=== PATIENT | female | born 1960 | race Caucasian/White ===

== ENCOUNTER → 2018-02-13 16:54 | Outpatient (CLI) | payer OTHER, SELFPAY ==
--- NOTE | 2018-02-13 16:56 | CT_ITS ---
STUDY: CT ABDOMEN AND PELVIS WITH CONTRAST REASON FOR EXAM: Female, 58 years old. Right lower quadrant pain for one week. RADIATION DOSAGE (If Supplied By Facility): CTDIvol = ( 13.16 ) mGy, DLP = ( 658.42 ) mGycm TECHNIQUE: Transaxial images were obtained from the dome of the diaphragm to the symphysis pubis with oral contrast. 100ML ml of Isovue 300 contrast was administered. Sagittal and coronal images were reconstructed. Individualized dose optimization techniques were used for this CT. COMPARISON: None. FINDINGS: The visualized lung bases are unremarkable. The visualized portions of the heart are within normal limits. Scattered hepatic cysts, all likely simple cysts, the largest in the right lobe measuring 3.0 x 2.9 cm. The gallbladder is contracted. Normal spleen. Normal pancreas. Normal bilateral adrenal glands. Normal right kidney. Normal left kidney. Normal visualized stomach. Normal small intestine including the terminal ileum. Normal colon. The appendix is well visualized coronal images 40 through 43 as well as sagittal images 35 and 36 and appears normal. Normal abdominal aorta. Normal inferior vena cava. Normal retroperitoneum. Terminal ileum is normal. Normal urinary bladder. Uterus is not visualized compatible with hysterectomy. No adnexal mass is seen. Normal abdominal wall. Mild degenerative changes of the lower lumbar spine. CT/Abdomen/Pelvis WITH Contrast IMPRESSION: No acute findings in the abdomen or pelvis. No findings to account for patient's symptoms. Normal appendix. Hepatic cysts. Electronically Signed: Andrew Patterson MD at 2:47 EDT , Service support ,
== END ==
PROVIDERS: Family Provider Family Medicine; PCP Family Medicine; Visit Provider Family Medicine
DX: R10.31 Right lower quadrant pain (principal)
CPT/HCPCS: 74177; Q9967

== ENCOUNTER → 2018-04-18 16:11 | Outpatient (CLI) | payer OTHER, SELFPAY | PROVIDERS: Family Provider Family Medicine; PCP Family Medicine; Visit Provider Nurse Practitioner Women's Health | DX: Z12.31 Encounter for screening mammogram for malignant neoplasm of breast (principal) | CPT/HCPCS: 77063; 77067 ==

== ENCOUNTER 2018-05-03 06:58 | Day surgery (SDC) | payer OTHER, SELFPAY ==
[2018-05-03] VITALS (7 sets, daily range): BP systolic 100–120; BP diastolic 59–75; PULSE 69–73; RESP 14–16; TEMP 36.4–36.6; O2SAT 97–100; BMI 23.8
--- NOTE | 2018-05-03 08:31 | OP.ENDO_ITS ---
Patient Name: Madelyn Hayes Procedure Date: 05/03/2018 7:58 AM Date of : 1960 Age: 58 Procedure: Colonoscopy Indications: Screening in patient at increased risk: Family history of 1st-degree relative with colorectal cancer Patient Profile: Last Colonoscopy: 5 years ago. Providers: Juan Robb MD Referring MD: Muna Putnam Medicines: See the Anesthesia note for documentation of the administered medications Complications: No immediate complications. Procedure: Pre-Anesthesia Assessment: - Prior to the procedure, a History and Physical was performed, and patient medications and allergies were reviewed. The patient's tolerance of previous anesthesia was also reviewed. The risks and benefits of the procedure and the sedation options and risks were discussed with the patient. All questions were answered, and informed consent was obtained. Prior Anticoagulants: The patient has taken no previous anticoagulant or antiplatelet agents. ASA Grade Assessment: II - A patient with mild systemic disease. After reviewing the risks and benefits, the patient was deemed in satisfactory condition to undergo the procedure. After I obtained informed consent, the scope was passed under direct vision. Throughout the procedure, the patient's blood pressure, pulse, and oxygen saturations were monitored continuously. The colonoscope was introduced through the anus and advanced to the terminal ileum. The colonoscopy was performed without difficulty. The patient tolerated the procedure well. The quality of the bowel preparation was good. Scope In: 8:09:15 AM Scope Withdrawal Time 0 hours 6 minutes 5 seconds Scope Out: 8:25:28 AM Total Procedure Duration Time 0 hours 16 minutes 13 seconds Findings: The perianal and digital rectal examinations were normal. The exam was otherwise without abnormality on direct and retroflexion views. Impression: - The examination was otherwise normal on direct and retroflexion views. - No specimens collected. Recommendation: - Discharge patient to home. - Resume previous diet. - Continue present medications. - Return to primary care physician PRN. - Repeat colonoscopy in 5 years for surveillance. Procedure Code(s): --- Professional --- 94451, Colonoscopy, flexible; diagnostic, including collection of specimen(s) by brushing or washing, when performed (separate procedure) Diagnosis Code(s): --- Professional --- Z80.0, Family history of malignant neoplasm of digestive organs CPT copyright 2017 [employer]. All rights reserved. The codes documented in this report are preliminary and upon bag worker review may be revised to meet current compliance requirements. MD Juan Liz MD 05/03/2018 8:31:26 AM This report has been signed electronically. Number of Addenda: 0 Note Initiated On: 05/03/2018 7:58 AM
--- NOTE | 2018-05-03 08:32 | PCM.HP.STD ---
Problem List (1) Family history of colon cancer Status: Acute History of Present Illness Date of Admission: 05/03/18 The patient is a 58 year old F who presents for a colonoscopy secondary to a family history of colon cancer.: Endoscopy was more than 5 years ago. Past Medical History Allergies ampicillin Allergy (Mild, Verified 05/03/18 07:21) Other Home Medications: Ambulatory Orders Medication Instructions Recorded estradiol 0.0375 mg/24 hr 1 patch TRANSDERMAL QWEEK #12 ea 04/03/18 semiweekly transdermal patch Surgical History: Surgical History (Last Reviewed 05/03/18 @ 08:32 by Juan Robb MD) H/O hernia repair Z98.890, Z87.19 History of LAVH Z90.710 Smoking Status: Never smoker Tobacco Use: Non-smoker - *Family History Paternal Family History: Family History (Last Updated 04/03/18 @ 08:16 by Chloé Ocampo) Father Colon cancer Heart disease Review of Systems Cardiovascular: Denies: Chest Pain, Chest Pressure, Chest Tightness, Palpitations Respiratory: Denies: Cough, Hemoptysis, Shortness of breath at rest, Shortness of breath upon exertion, Wheezing VTE Information - Inpt Only VTE Present on Admission: No VTE Mechan Device Prophylaxis: None VTE Pharm Prophylaxis ordered?: No Reason prophylaxis not ordered:: Treatment Not Indicated Patient Problems: Active and Suspected Problems (Last Reviewed 04/03/18 @ 08:16 by Chloé Ocampo) Family history of colon cancer (Acute) - Physical Exam Lungs: Clear to auscultation Cardiovascular: Regular rate, Regular Rhythm, No murmurs Abdomen: Bowel Sounds Present, Soft, Non Tender, Non-Distended Vital Signs Temp Pulse Resp BP Pulse Ox 97.6 F L 69 14 102/75 99 05/03/18 07:23 05/03/18 07:23 05/03/18 07:23 05/03/18 07:23 05/03/18 07:23 Oxygen Delivery Method Room Air Weight: 147 lb 14.883 oz Body Mass Index (BMI) 23.8 Assessment/Plan All Active Problems (Last Reviewed 04/03/18 @ 08:16 by Chloé Ocampo) Family history of colon cancer (Acute) My plan is to perform a colonoscopy.
--- NOTE | 2018-05-03 13:36 | OP.ENDO_ITS ---
Patient Name: Madelyn Hayes Procedure Date: 05/03/2018 7:58 AM Date of : 1960 Age: 58 Procedure: Colonoscopy Indications: Screening in patient at increased risk: Family history of 1st-degree relative with colorectal cancer Patient Profile: Last Colonoscopy: 5 years ago. Providers: Juan Robb MD Referring MD: Muna Putnam Medicines: See the Anesthesia note for documentation of the administered medications Complications: No immediate complications. Procedure: Pre-Anesthesia Assessment: - Prior to the procedure, a History and Physical was performed, and patient medications and allergies were reviewed. The patient's tolerance of previous anesthesia was also reviewed. The risks and benefits of the procedure and the sedation options and risks were discussed with the patient. All questions were answered, and informed consent was obtained. Prior Anticoagulants: The patient has taken no previous anticoagulant or antiplatelet agents. ASA Grade Assessment: II - A patient with mild systemic disease. After reviewing the risks and benefits, the patient was deemed in satisfactory condition to undergo the procedure. After I obtained informed consent, the scope was passed under direct vision. Throughout the procedure, the patient's blood pressure, pulse, and oxygen saturations were monitored continuously. The colonoscope was introduced through the anus and advanced to the terminal ileum. The colonoscopy was performed without difficulty. The patient tolerated the procedure well. The quality of the bowel preparation was good. Scope In: 8:09:15 AM Scope Withdrawal Time 0 hours 6 minutes 5 seconds Scope Out: 8:25:28 AM Total Procedure Duration Time 0 hours 16 minutes 13 seconds Findings: The perianal and digital rectal examinations were normal. The exam was otherwise without abnormality on direct and retroflexion views. Impression: - The examination was otherwise normal on direct and retroflexion views. - No specimens collected. Recommendation: - Discharge patient to home. - Resume previous diet. - Continue present medications. - Return to primary care physician PRN. - Repeat colonoscopy in 5 years for surveillance. Procedure Code(s): --- Professional --- 65085, Colonoscopy, flexible; diagnostic, including collection of specimen(s) by brushing or washing, when performed (separate procedure) Diagnosis Code(s): --- Professional --- Z80.0, Family history of malignant neoplasm of digestive organs CPT copyright 2017 [employer]. All rights reserved. The codes documented in this report are preliminary and upon circuit court judge review may be revised to meet current compliance requirements. MD Juan Liz MD 05/03/2018 8:31:26 AM This report has been signed electronically. Number of Addenda: 0 Note Initiated On: 05/03/2018 7:58 AM
== END 2018-05-03 09:18 | disposition home or self-care (01) ==
LOC: EN 06:59 → AC 07:00
PROVIDERS: Family Provider Family Medicine; PCP Family Medicine; Visit Provider Surgery
PROC: 0DJD8ZZ Inspection of Lower Intestinal Tract, Via Natural or Artificial Opening Endoscopic (ICD-10-PCS; CPT 45378; principal; 2018-05-03 07:55)
DX: Z12.11 Encounter for screening for malignant neoplasm of colon (principal); Z78.0 Asymptomatic menopausal state; Z86.2 Personal history of diseases of the blood and blood-forming organs and certain disorders involving the immune mechanism; Z80.0 Family history of malignant neoplasm of digestive organs
CPT/HCPCS: 45378; J7120; J1610

== ENCOUNTER → 2019-05-23 07:35 | Outpatient (CLI) | payer BC, SELFPAY ==
[2018-05-03 07:23] VITALS: BMI 23.8
--- NOTE | 2019-05-23 07:38 | BI_ITS ---
MAMMOGRAPHY - BILATERAL SCREENING 3-D TOMOSYNTHESIS REASON FOR EXAM: Female, 59 years old. PERTINENT HISTORY: No significant family history. TECHNIQUE: 2-D mammograms and 3-D Tomosynthesis of the breast (s) were performed. CAD was performed. COMPARISON: Previous examination obtained on 04/18/2018 FINDINGS: The breast composition is scattered Scattered benign calcifications are seen. No dense spiculated masses or suspicious microcalcifications are identified. No architectural distortion is identified. There is no skin thickening or retraction. There has been no significant change since the prior study. BI/SCREEN MAMM (CAD) W/NUBIA BILAT IMPRESSION: No mammographic signs of malignancy. Routine yearly mammograms recommended. ASSESSMENT CATEGORY: BIRADS Category 1: Negative. A letter regarding these results will be sent to the patient by the facility within 30 days. FOLLOW UP RECOMMENDATION: Yearly follow up mammogram recommended. (A) Approximately 10% of breast cancers are not detected by mammography. A normal mammogram should not delay biopsy of a clinically suspicious abnormality. Electronically Signed: Dominick Kim, at 9:19 EDT Tel , Service support ,
== END ==
PROVIDERS: Family Provider Family Medicine; PCP Family Medicine; Referring Provider Nurse Practitioner Women's Health; Visit Provider Nurse Practitioner Women's Health
DX: Z12.31 Encounter for screening mammogram for malignant neoplasm of breast (principal)
CPT/HCPCS: 77063; 77067

== ENCOUNTER → 2020-05-29 08:20 | Outpatient (CLI) | payer BC, SELFPAY ==
[2019-09-16 12:34] VITALS: BMI 23.8
--- NOTE | 2020-05-29 08:21 | BI_ITS ---
MAMMOGRAPHY - BILATERAL SCREENING REASON FOR EXAM: Female, 60 years old. Routine annual screening examination. PERTINENT HISTORY: Grandmother with breast cancer. Remote left excisional breast biopsy. TECHNIQUE: Digital bilateral breast nubia (3D mammographic acquisition) in the CC and MLO projections. 2-D mediolateral oblique (MLO) and craniocaudad (CC) views of both breasts were obtained. CAD: Full Field Digital Mammography with Computer Added Detection was performed. COMPARISON: Comparison is made with prior study dated 05/23/2019 and 04/18/2018. FINDINGS: Breast Composition: The breasts are heterogeneously dense, which may obscure small masses. There are no dominant masses or suspicious calcifications. No other significant abnormalities are identified. There has been no significant change since the prior study. BI/SCREEN MAMM (CAD) W/NUBIA BILAT IMPRESSION: Stable bilateral screening mammogram. Yearly follow-up mammogram recommended. (A) ASSESSMENT CATEGORY: BIRADS Category 1: Negative. A letter regarding these results will be sent to the patient by the facility within 30 days. Approximately 10% of breast cancers are not detected by mammography. A normal mammogram should not delay biopsy of a clinically suspicious abnormality. [id number] Electronically Signed: Anson Cisneros, at 9:48 EDT , Service support ,
== END ==
PROVIDERS: PCP Family Medicine; Referring Provider Nurse Practitioner Women's Health; Visit Provider Nurse Practitioner Women's Health
DX: Z12.31 Encounter for screening mammogram for malignant neoplasm of breast (principal); Z80.3 Family history of malignant neoplasm of breast
CPT/HCPCS: 77063; 77067

== ENCOUNTER → 2020-12-17 11:43 | Outpatient (CLI) | payer BC, SELFPAY ==
[2020-05-29 08:53] VITALS: BMI 22.7
--- NOTE | 2020-12-17 11:46 | RAD_ITS ---
STUDY: X-RAY - LUMBAR SPINE REASON FOR EXAM: Female, 60 years old. Back pain. TECHNIQUE: 5 view(s) of the lumbar spine were obtained. COMPARISON: None FINDINGS: Normal lumbar lordosis. There is no substantial scoliosis. There is a normal alignment of the vertebrae. Normal vertebral bodies and endplates. Diffuse facet sclerosis. Intervertebral disc space narrowing at L2-3, L3-4 and L4-5 with osteophyte formation most marked at L4-5. 3 mm in diameter ovoid calcification projected between the right spinous processes of the L2 and L3 vertebral bodies which may reside in the bowel wall. RAD/L/S Spine Min 4 Views IMPRESSION: Mild lower lumbar spondylosis as described. 3 mm in diameter ovoid calcification as described. Electronically Signed: Cj Benjamin MD at 12:25 EDT , Service support ,
--- NOTE | 2020-12-17 11:47 | RAD_ITS ---
STUDY: X-RAY - SACROILIAC JOINTS REASON FOR EXAM: Female, 60 years old. Low back pain. TECHNIQUE: 3 view(s) of the sacroiliac joints were obtained. COMPARISON: None. FINDINGS: Mild arthrosis of both sacroiliac joints. Normal visualized sacral ala and sacrum. Normal visualized iliac bones. 3 mm in diameter calcification projected over the right kidney which may represent nephrocalcinosis. RAD/S-I Jts 3 or More Views IMPRESSION: Mild symmetrical arthrosis of both sacroiliac joints. 3 mm in diameter projected over the right kidney which may represent right nephrocalcinosis. Electronically Signed: Cj Benjamin MD at 12:27 EDT , Service support ,
== END ==
PROVIDERS: PCP Family Medicine; Referring Provider Family Medicine; Visit Provider Family Medicine
DX: M54.5 Low back pain (principal)
CPT/HCPCS: 72110; 72202

== ENCOUNTER 2021-02-05 10:30 | Outpatient (RCR) | payer BC, SELFPAY ==
[2020-05-29 08:53] VITALS: BMI 22.7
--- NOTE | 2021-01-08 12:49 | HP.PTEVAL ---
Patient's Visit Information ROSINA SANTORO is a 61 year old F referred to Physical Therapy by Dr. Muna Putnam MD with a diagnosis of LBP, OA. Date of Evaluation: 01/08/21 Physical Therapist: Ajay Sharpe DPT, OCS, CSCS - Visit Plan Frequency: 2x /Week Duration: 4-6 Weeks Plan: 2x/week x 4 weeks for. 1. stretch quad, hip flexor and HS. 2. NS strength program to progress to HEP. 3. STM R LB if needed with MH. - Subjective R LB hurts especially lying on back and it has hurt for long time. Gets muscle spasms more recently and more pain. Pain to 8/10, 0 today. R LB into L LB. No leg symptoms, no numbness or tingling or weakness. Worse with a lot of standing. Was not lifting but stood alot. Sleeping is hard as she cannot get comfortable. Tries L side but none comfy, getting 2 hours at a time. 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 Wallking is not a big issue on even surfaces. She is effectively retired. Hobbies: reading and grandchildren wnasd walking adn bei9ng more cautious. Grandchildren are 7, 5 , 3. Doing basics at home without too many limitations. - Pain R LBP Pain Intensity (Out of 10): 0 Pain Intensity Range: 0, 8 - Objective wALKS NORMAL, trasnfers normal adn I. Steps reciprocal without rail. LB AROM ext painful R min limtied, flexion full and stretchy. R SB painful and min limited, L SB fulla dn painfree. reflexes 2/3 patella adn achilles. Sensation LE WNL to gross light touch. strength LE 4/5 except hip ext adn abd B 4-, R pain with extension hips. marching in place increases pain. 3/5 trunk strength with poor pelvic movement in WB. - Goals Goal 1:: sleep without waking 6 hours Goal Time Frame: 4-6 Weeks Goal 2:: Pain 0-1 /10 at all times in LB and manageable Goal Time Frame: 4-6 Weeks Goal 3:: I approp HEP for NS position, body mechanics and posture Goal Time Frame: 4-6 Weeks Goal 4:: Pt feel 90% better overall and oswestry score of 5 or less. Goal Time Frame: 4-6 Weeks - Rehabilitation Potential Physical Therapy Diagnosis: degenerative changes in LB effecting function. Rehabilitation Potential: Fair - Anticipated Interventions Patient/Client Instruction: Educate patient on: Condition For the Purpose of:: To decrease pain, To increase ROM, To improve muscle performance and motor function, To increase tolerance to activity/condition/position Therapeutic Exercise to Include: Strength training, Flexibilty training, Gait and locomotor training, Passive ROM, Active ROM, Dynamic Lumbar Stabilization For the Purpose of:: To decrease pain, To increase ROM, To improve muscle performance and motor function, To increase tolerance to activity/condition/position, To improve gait and locomotor functions Manual Therapy Techniques to Include: Mobilization, Passive ROM, Soft tissue mobilization For the Purpose of:: To decrease pain, To increase ROM, To increase tolerance to activity/condition/position Thermo therapy (hot pack): Yes For the Purpose of:: To decrease pain Thank you for the opportunity to evaluate your patient. For Medicare and Medicare HMO plans, please review the plan of care and approve it. It will need to be FAXED BACK to us at [phone] for Medicare purposes. For Medicare only, by signing this I certify the plan of care. Please let me know if there are questions or concerns regarding this plan of care. Physician Signature: Date:
--- NOTE | 2021-02-05 10:54 | HP.PTDCSUM ---
It has been my pleasure to treat ROSINA SANTORO referred by Dr. Muna Putnam MD, with the diagnosis of LBP, OA for a total of 9 visit(s). Discharge Date: 02/05/21 Please see the following information for a summary of their discharge status. Subjective: Things are looser, tight today but walked a couple miles. Pain is not what it used to be. Can be worse if she stands too long. No f/u with doctor. Sore right now. Sleep is intermittently uncomfortable. Usng pillows at night. R LBP Pain Intensity (Out of 10): 2 % Improvement: 92 Objective/Function: L/S AROM is full and without increased pain today. NS posture has been the most helpful. Walking normal and jsut has some R LB tightness today. Goal 1:: sleep without waking 6 hours Goal Progress: intermittent. Goal 2:: Pain 0-1 /10 at all times in LB and manageable Goal Progress: Progressing Goal 3:: I approp HEP for NS position, body mechanics and posture Goal Progress: Goal Met Goal 4:: Pt feel 90% better overall and oswestry score of 5 or less. Goal Progress: 92,met Plan: d/c to HEP Discharge Comments: Pt to continue via HEP and contact doctor if improvements do not continue. If there are questions or concerns regarding this patient's physical therapy, please feel free to call me at [phone]. Thank you for the referral of this patient. Sincerely, Ajay Sharpe, DPT, OCS, CSCS
== END 2021-02-05 19:00 | disposition home or self-care (01) ==
LOC: PT 10:30
PROVIDERS: PCP Family Medicine; Referring Provider Family Medicine; Visit Provider Family Medicine
DX: M54.5 Low back pain (principal); M19.90 Unspecified osteoarthritis, unspecified site
CPT/HCPCS: 97110; 97162; 97164

== ENCOUNTER → 2021-05-23 | Outpatient (CLI) | payer BC, SELFPAY | END | disposition home or self-care (01) | PROVIDERS: PCP Family Medicine; Referring Provider Nurse Practitioner Family; Visit Provider Nurse Practitioner Family | DX: U07.1 COVID-19 (principal) | CPT/HCPCS: 87635; U0005; U0003 ==

== ENCOUNTER → 2021-06-02 08:13 | Outpatient (CLI) | payer BC, SELFPAY ==
[2020-05-29 08:53] VITALS: BMI 22.7
--- NOTE | 2021-06-02 08:16 | BI_ITS ---
MAMMOGRAPHY - BILATERAL SCREENING REASON FOR EXAM: Female, 61 years old. Routine annual screening examination. PERTINENT HISTORY: Grandmother with breast cancer. Remote left excisional breast biopsy. TECHNIQUE: Digital bilateral breast nubia (3D mammographic acquisition) in the CC and MLO projections. 2-D mediolateral oblique (MLO) and craniocaudad (CC) views of both breasts were obtained. CAD: Full Field Digital Mammography with Computer Added Detection was performed. COMPARISON: Comparison is made with prior examination 05/29/2020 and 05/23/2019. FINDINGS: Breast Composition: The breasts are heterogeneously dense, which may obscure small masses. There are no dominant masses or suspicious calcifications. No other significant abnormalities are identified. There has been no significant change since the prior study. BI/SCRN MAMM (CAD)W/NUBIA BILAT IMPRESSION: Stable bilateral screening mammogram. Yearly follow-up mammogram recommended. (A) ASSESSMENT CATEGORY: BIRADS Category 1: Negative. A letter regarding these results will be sent to the patient by the facility within 30 days. Approximately 10% of breast cancers are not detected by mammography. A normal mammogram should not delay biopsy of a clinically suspicious abnormality. [id number] Electronically Signed: Anson Cisneros MD at 10:04 EDT , Service support ,
== END ==
PROVIDERS: PCP Family Medicine; Referring Provider Nurse Practitioner Women's Health; Visit Provider Nurse Practitioner Women's Health
DX: Z12.31 Encounter for screening mammogram for malignant neoplasm of breast (principal); Z80.3 Family history of malignant neoplasm of breast
CPT/HCPCS: 77063; 77067

== ENCOUNTER → 2022-04-07 | Outpatient (CLI) | payer BC, SELFPAY ==
--- NOTE | 2022-04-07 14:30 | RAD_ITS ---
STUDY: X-RAY - RIGHT ANKLE REASON FOR EXAM: Female, 62 years old. Pain. TECHNIQUE: 3 view(s) of the ankle. COMPARISON: None. FINDINGS: Normal visualized distal tibia and fibula. Normal medial and lateral malleoli. Normal tibiotalar articulation and ankle mortise. Normal visualized talus and calcaneus. The visualized subtalar, talonavicular, calcaneocuboid and tarsal articulations are normal. The soft tissue structures are unremarkable. RAD/Ankle min 3 Views IMPRESSION: Normal x-ray examination of the right ankle. Electronically Signed: Jaxon Crouch DO at 20:16 EDT ,
[2022-04-07 17:54] LABS: Absolute Lymphocyte Count 1.18 X10^3/uL (0.83-4.51); Absolute Neutrophil Count 4.7 X10^3/uL (2.0-7.7); Basophil# 0.03 X10^3/uL; Basophil% 0.5 % (0-1); Eosinophil# 0.11 X10^3/uL; Eosinophils% 1.7 % (0-5); Hematocrit 32.8 % (37-47); Hemoglobin 10.2 g/dL (12.0-15.0); Lymphocyte # 1.18 X10^3/ul (0.83-4.51); Lymphocyte % 18.2 % (19-41); Mean Corp Hgb Conc 31.1 g/dL (32-36); Mean Corpuscular Hgb 25.2 pg (27.0-32.0); Mean Corpuscular Volume 81.2 fL (81-99); Mean Platelet Vol. 9.6 fl (6.2-12.0); Monocyte# 0.41 X10^3/uL; Monocyte% 6.3 % (0-10); NRBC Flagged by Analyzer 0 % (0-5); Neutrophil # 4.73 X10^3/uL (2.7-7.7); Neutrophil % 73.1 % (47-70); Platelet Count 384 K/mm3 (150-450); RBC Distribution Width CV 13.9 % (11.6-14.6); RBC Distribution Width SD 41.6 fl (35.1-43.9); Red Blood Count 4.04 M/mm3 (4.2-5.4); White Blood Count 6.5 K/mm3 (4.4-11.0)
[2022-04-07 18:11] LABS: Vitamin D,25 Hydroxy 33.1 ng/mL
[2022-04-07 18:33] LABS: AST(SGOT) 17 U/L (15-37); Alanine Aminotransfer ALT/SGPT 27 U/L (13-56); Albumin, Serum 3.9 g/dL (3.2-5.0); Alkaline Phosphatase 42 U/L (45-117); Anion Gap 7 (5-15); BUN 14 mg/dL (7-18); BUN/Creat Ratio 19.5 RATIO (10-20); Calcium,Total 8.6 mg/dL (8.5-10.1); Chloride 106 mmol/L (98-107); Creatinine, Serum 0.72 mg/dL (0.55-1.02); EST Glomerular Filtration Rate 88 mL/min (>60); Est Glom Filt Rate - Afr Amer 106 mL/min (>60); Globulin 3.8 g/dL (2.2-4.2); Glucose 90 mg/dL (74-106); Potassium 4.1 mmol/L (3.5-5.1); Protein, Total 7.7 g/dL (6.4-8.2); Sodium Level 140 mmol/L (136-145); Thyroid Stim Hormone (TSH) 3.01 uIU/mL (0.358-3.74)
== END | disposition home or self-care (01) ==
LOC: MTLAB 14:28
PROVIDERS: PCP Family Medicine; Referring Provider Family Medicine; Visit Provider Family Medicine
DX: M25.571 Pain in right ankle and joints of right foot (principal); G25.81 Restless legs syndrome
CPT/HCPCS: 36415; 73610; 80053; 82306; 84443; 85025

== ENCOUNTER → 2022-04-26 | Outpatient (CLI) | payer BC, SELFPAY ==
[2022-04-26 15:26] LABS: Absolute Lymphocyte Count 1.08 X10^3/uL (0.83-4.51); Absolute Neutrophil Count 2.8 X10^3/uL (2.0-7.7); Basophil# 0.02 X10^3/uL; Basophil% 0.4 % (0-1); Eosinophil# 0.15 X10^3/uL; Eosinophils% 3.4 % (0-5); Hematocrit 33.9 % (37-47); Hemoglobin 10.1 g/dL (12.0-15.0); Lymphocyte # 1.08 X10^3/ul (0.83-4.51); Lymphocyte % 24.2 % (19-41); Mean Corp Hgb Conc 29.8 g/dL (32-36); Mean Corpuscular Hgb 25.6 pg (27.0-32.0); Mean Corpuscular Volume 85.8 fL (81-99); Mean Platelet Vol. 9.7 fl (6.2-12.0); Monocyte# 0.38 X10^3/uL; Monocyte% 8.5 % (0-10); NRBC Flagged by Analyzer 0 % (0-5); Neutrophil # 2.82 X10^3/uL (2.7-7.7); Neutrophil % 63.3 % (47-70); Platelet Count 282 K/mm3 (150-450); RBC Distribution Width CV 16.8 % (11.6-14.6); RBC Distribution Width SD 51.4 fl (35.1-43.9); Red Blood Count 3.95 M/mm3 (4.2-5.4); White Blood Count 4.5 K/mm3 (4.4-11.0)
[2022-04-26 15:46] LABS: Iron 26 ug/dL (50-170); Iron Binding Capacity,Total 440 ug/dL (250-450); PERCENT IRON SATURATION 5.9 % (15.0-55.0)
== END | disposition home or self-care (01) ==
PROVIDERS: PCP Family Medicine; Referring Provider Family Medicine; Visit Provider Family Medicine
DX: D50.9 Iron deficiency anemia, unspecified (principal)
CPT/HCPCS: 36415; 83540; 83550; 85025

== ENCOUNTER → 2022-05-14 | Outpatient (CLI) | payer BC, SELFPAY ==
[2022-05-14 18:01] LABS: Ferritin 10 ng/mL (8-252); Iron 156 ug/dL (50-170)
[2022-05-17 17:07] LABS: Endomysial Antibody IgA Negative (Negative)
[2022-05-18 13:53] LABS: Immunoglobulin A 163 mg/dL (87-352); t-Transglutaminase IgA <2 U/mL (0-3)
== END | disposition home or self-care (01) ==
LOC: MTLAB 14:36
PROVIDERS: PCP Family Medicine; Referring Provider Internal Medicine Gastroenterology; Visit Provider Internal Medicine Gastroenterology
DX: D50.9 Iron deficiency anemia, unspecified (principal)
CPT/HCPCS: 36415; 82728; 82784; 83516; 83540; 86255

== ENCOUNTER → 2022-06-10 | Outpatient (CLI) | payer BC, SELFPAY ==
--- NOTE | 2022-06-10 07:58 | BI_ITS ---
MAMMOGRAPHY - BILATERAL SCREENING REASON FOR EXAM: Female, 62 years old. Routine annual screening examination. PERTINENT HISTORY: Grandmother with breast cancer. Remote left excisional breast biopsy. TECHNIQUE: Digital bilateral breast nubia (3D mammographic acquisition) in the CC and MLO projections. 2-D mediolateral oblique (MLO) and craniocaudad (CC) views of both breasts were obtained. CAD: Full Field Digital Mammography with Computer Added Detection was performed. COMPARISON: Comparison is made with prior study 06/02/2021 and 05/29/2012. FINDINGS: Breast Composition: The breasts are extremely dense, which lowers the sensitivity of mammography. There are no dominant masses or suspicious calcifications. No other significant abnormalities are identified. There has been no significant change since the prior study. BI/SCRN MAMM (CAD)W/NUBIA BILAT IMPRESSION: Stable bilateral screening mammogram. Yearly follow-up mammogram recommended. (A) ASSESSMENT CATEGORY: BIRADS Category 1: Negative. A letter regarding these results will be sent to the patient by the facility within 30 days. Approximately 10% of breast cancers are not detected by mammography. A normal mammogram should not delay biopsy of a clinically suspicious abnormality. [id number] Electronically Signed: Anson Cisneros MD at 9:08 EDT ,
== END | disposition home or self-care (01) ==
LOC: OPBI 07:57
PROVIDERS: PCP Family Medicine; Visit Provider Nurse Practitioner Women's Health
DX: Z12.31 Encounter for screening mammogram for malignant neoplasm of breast (principal); Z80.3 Family history of malignant neoplasm of breast
CPT/HCPCS: 77063; 77067

== ENCOUNTER 2022-06-22 11:50 | Outpatient (RCR) | payer BC, SELFPAY ==
[2022-06-22 15:13] LABS: Absolute Lymphocyte Count 1.17 X10^3/uL (0.83-4.51); Absolute Neutrophil Count 2.1 X10^3/uL (2.0-7.7); Basophil# 0.03 X10^3/uL; Basophil% 0.8 % (0-1); Eosinophil# 0.08 X10^3/uL; Eosinophils% 2.1 % (0-5); Hemoglobin 12.7 g/dL (12.0-15.0); Lymphocyte # 1.17 X10^3/ul (0.83-4.51); Lymphocyte % 30.5 % (19-41); Mean Corp Hgb Conc 31.8 g/dL (32-36); Mean Corpuscular Hgb 28.3 pg (27.0-32.0); Mean Corpuscular Volume 89.3 fL (81-99); Mean Platelet Vol. 9.8 fl (6.2-12.0); Monocyte# 0.41 X10^3/uL; Monocyte% 10.7 % (0-10); NRBC Flagged by Analyzer 0 % (0-5); Neutrophil # 2.14 X10^3/uL (2.7-7.7); Neutrophil % 55.9 % (47-70); Platelet Count 260 K/mm3 (150-450); RBC Distribution Width CV 17.7 % (11.6-14.6); RBC Distribution Width SD 58.5 fl (35.1-43.9); Red Blood Count 4.48 M/mm3 (4.2-5.4); White Blood Count 3.8 K/mm3 (4.4-11.0)
[2022-06-22 15:40] LABS: Ferritin 13 ng/mL (8-252); Iron 115 ug/dL (50-170)
== END 2022-07-14 18:00 | disposition home or self-care (01) ==
LOC: MTLAB 11:50
PROVIDERS: PCP Family Medicine; Referring Provider Internal Medicine Gastroenterology; Visit Provider Internal Medicine Gastroenterology
DX: D50.9 Iron deficiency anemia, unspecified (principal)
CPT/HCPCS: 36415; 82728; 83540; 85025

== ENCOUNTER 2022-09-22 10:04 | Outpatient (RCR) | payer OTHER, SELFPAY ==
[2022-09-22 11:16] LABS: Absolute Lymphocyte Count 1.21 X10^3/uL (0.83-4.51); Absolute Neutrophil Count 2.2 X10^3/uL (2.0-7.7); Basophil# 0.02 X10^3/uL; Basophil% 0.5 % (0-1); Eosinophil# 0.16 X10^3/uL; Hematocrit 43.9 % (37-47); Lymphocyte # 1.21 X10^3/ul (0.83-4.51); Lymphocyte % 30.6 % (19-41); Mean Corp Hgb Conc 31.9 g/dL (32-36); Mean Corpuscular Hgb 29.9 pg (27.0-32.0); Mean Corpuscular Volume 93.6 fL (81-99); Mean Platelet Vol. 9.5 fl (6.2-12.0); Monocyte# 0.33 X10^3/uL; Monocyte% 8.3 % (0-10); NRBC Flagged by Analyzer 0 % (0-5); Neutrophil # 2.23 X10^3/uL (2.7-7.7); Neutrophil % 56.3 % (47-70); Platelet Count 301 K/mm3 (150-450); RBC Distribution Width CV 12.9 % (11.6-14.6); RBC Distribution Width SD 44.2 fl (35.1-43.9); Red Blood Count 4.69 M/mm3 (4.2-5.4)
[2022-09-22 11:38] LABS: Ferritin 15 ng/mL (8-252); Iron 117 ug/dL (50-170)
== END 2022-09-22 18:00 | disposition home or self-care (01) ==
LOC: LAB 10:04
PROVIDERS: PCP Family Medicine; Referring Provider Internal Medicine Gastroenterology; Visit Provider Internal Medicine Gastroenterology
DX: D50.9 Iron deficiency anemia, unspecified (principal)
CPT/HCPCS: 36415; 82728; 83540; 85025

== ENCOUNTER 2022-12-20 13:02 | Outpatient (RCR) | payer OTHER, SELFPAY ==
[2022-12-20 15:13] LABS: Absolute Lymphocyte Count 1.26 X10^3/uL (0.83-4.51); Absolute Neutrophil Count 2.6 X10^3/uL (2.0-7.7); Basophil# 0.02 X10^3/uL; Basophil% 0.5 % (0-1); Eosinophil# 0.12 X10^3/uL; Eosinophils% 2.7 % (0-5); Hematocrit 41.1 % (37-47); Hemoglobin 13.1 g/dL (12.0-15.0); Lymphocyte # 1.26 X10^3/ul (0.83-4.51); Lymphocyte % 28.8 % (19-41); Mean Corp Hgb Conc 31.9 g/dL (32-36); Mean Corpuscular Hgb 29.6 pg (27.0-32.0); Mean Corpuscular Volume 92.8 fL (81-99); Mean Platelet Vol. 9.5 fl (6.2-12.0); Monocyte# 0.33 X10^3/uL; Monocyte% 7.5 % (0-10); NRBC Flagged by Analyzer 0 % (0-5); Neutrophil # 2.64 X10^3/uL (2.7-7.7); Neutrophil % 60.3 % (47-70); Platelet Count 302 K/mm3 (150-450); RBC Distribution Width CV 12.2 % (11.6-14.6); RBC Distribution Width SD 41.3 fl (35.1-43.9); Red Blood Count 4.43 M/mm3 (4.2-5.4); White Blood Count 4.4 K/mm3 (4.4-11.0)
[2022-12-20 15:39] LABS: Ferritin 18 ng/mL (8-252); Iron 83 ug/dL (50-170)
== END 2022-12-20 14:02 | disposition home or self-care (01) ==
LOC: MTLAB 13:02
PROVIDERS: PCP Family Medicine; Referring Provider Internal Medicine Gastroenterology; Visit Provider Internal Medicine Gastroenterology
DX: D50.9 Iron deficiency anemia, unspecified (principal)
CPT/HCPCS: 36415; 82728; 83540; 85025

== ENCOUNTER → 2023-04-29 | Outpatient (CLI) | payer OTHER, SELFPAY ==
--- NOTE | 2023-04-29 15:48 | RAD_ITS ---
STUDY: X-RAY - RIGHT SHOULDER REASON FOR EXAM: Female, 63 years old. pain TECHNIQUE: 4 view(s) of the shoulder. COMPARISON: None. FINDINGS: Narrowed glenohumeral articulation. Normal acromioclavicular joint. Normal acromion. Normal humeral head and visualized proximal humerus. The soft tissue structures are unremarkable. Normal visualized pulmonary apex. RAD/Shoulder min 2 Views IMPRESSION: Degenerative changes. No acute fracture or other significant bony pathology Electronically Signed: Andrei Verma MD at 17:18 EDT ,
[2023-04-29 17:45] LABS: Absolute Lymphocyte Count 1.22 X10^3/uL (0.83-4.51); Absolute Neutrophil Count 2.9 X10^3/uL (2.0-7.7); Basophil# 0.02 X10^3/uL; Basophil% 0.4 % (0-1); Eosinophil# 0.03 X10^3/uL; Eosinophils% 0.7 % (0-5); Hematocrit 38.7 % (37-47); Hemoglobin 12.9 g/dL (12.0-15.0); Lymphocyte # 1.22 X10^3/ul (0.83-4.51); Lymphocyte % 27.1 % (19-41); Mean Corp Hgb Conc 33.3 g/dL (32-36); Mean Corpuscular Hgb 30.8 pg (27.0-32.0); Mean Corpuscular Volume 92.4 fL (81-99); Mean Platelet Vol. 9.4 fl (6.2-12.0); Monocyte# 0.34 X10^3/uL; Monocyte% 7.6 % (0-10); NRBC Flagged by Analyzer 0 % (0-5); Neutrophil # 2.88 X10^3/uL (2.7-7.7); Platelet Count 273 K/mm3 (150-450); RBC Distribution Width CV 11.9 % (11.6-14.6); RBC Distribution Width SD 39.8 fl (35.1-43.9); Red Blood Count 4.19 M/mm3 (4.2-5.4); White Blood Count 4.5 K/mm3 (4.4-11.0)
[2023-04-29 18:37] LABS: Cholesterol 180 mg/dL (200); High Density Lipoprotein 84 mg/dL; Triglycerides 64 mg/dL; Very Low Density Lipoprotein 13 mg/dL (5-40)
== END | disposition home or self-care (01) ==
PROVIDERS: PCP Family Medicine; Referring Provider Family Medicine; Visit Provider Family Medicine
DX: M25.511 Pain in right shoulder (principal); D50.9 Iron deficiency anemia, unspecified; Z13.220 Encounter for screening for lipoid disorders
CPT/HCPCS: 36415; 73030; 80061; 85025

== ENCOUNTER → 2023-06-14 | Outpatient (CLI) | payer OTHER, SELFPAY ==
--- NOTE | 2023-06-14 07:57 | BI_ITS ---
MAMMOGRAPHY - BILATERAL SCREENING REASON FOR EXAM: Female, 63 years old. Routine annual screening examination. PERTINENT HISTORY: Grandmother with breast cancer. Remote left excisional breast biopsy. Remote right breast needle biopsy. TECHNIQUE: Digital bilateral breast nubia (3D mammographic acquisition) in the CC and MLO projections. 2-D mediolateral oblique (MLO) and craniocaudad (CC) views of both breasts were obtained. CAD: Full Field Digital Mammography with Computer Added Detection was performed. COMPARISON: Comparison is made with prior study June 10, 2022 and June 02, 2021. FINDINGS: Breast Composition: The breasts are extremely dense, which lowers the sensitivity of mammography. There are no dominant masses or suspicious calcifications. No other significant abnormalities are identified. There has been no significant change since the prior study. BI/SCRN MAMM (CAD)W/NUBIA BILAT IMPRESSION: Stable bilateral screening mammogram. Yearly follow-up mammogram recommended. (A) ASSESSMENT CATEGORY: BIRADS Category 1: Negative. A letter regarding these results will be sent to the patient by the facility within 30 days. Approximately 10% of breast cancers are not detected by mammography. A normal mammogram should not delay biopsy of a clinically suspicious abnormality. [id number] Electronically Signed: Anson Cisneros MD at 8:58 EDT ,
== END | disposition home or self-care (01) ==
LOC: OPBI 07:56
PROVIDERS: PCP Family Medicine; Referring Provider Nurse Practitioner Women's Health; Visit Provider Nurse Practitioner Women's Health
DX: Z12.31 Encounter for screening mammogram for malignant neoplasm of breast (principal)
CPT/HCPCS: 77063; 77067

== ENCOUNTER → 2023-06-28 | Outpatient (CLI) | payer OTHER, SELFPAY ==
--- NOTE | 2023-06-28 14:43 | BD_ITS ---
STUDY: DUAL ENERGY X-RAY ABSORPTIOMETRY / DXA REASON FOR EXAM: Female, 63 years old. Postmenopausal TECHNIQUE: Bone Mineral Density (BMD) measurements of lumbar spine and bilateral hips were obtained. COMPARISON: None. FINDINGS: Lumbar Spine (L1-L4): g/cm2 (1.094) / T-score (0.7) / Z-score (2.2) Findings are suggestive of normal bone density with a low fracture risk. Left Femur Total: g/cm2 (1.025) / T-score (0.7) / Z-score (1.8) Left Femoral Neck: g/cm2 (0.955) / T-score (1.0) / Z-score (2.3) Right Femur Total: g/cm2 (1.109) / T-score (1.4) / Z-score (2.5) Right Femoral Neck: g/cm2 (0.943) / T-score (0.8) / Z-score (2.2) BD/Dexa Bone Density Study IMPRESSION: The patient is considered normal as outlined below according to World [employer] Organization (WHO) criteria with a low fracture risk. Reference Information: The T-score is the number of standard deviations above or below the standard which is normal for young adults at their peak bone mineral density. The World Health Organization (WHO) interprets the T-scores as follows: Above -1 Normal bone density Between -1 and -2.5 Osteopenia Equal to / or below -2.5 Osteoporosis As a practical clinical guideline, osteopenia may be graded as follows: Mild -1 through -1.5 Moderate -1.6 through -2.0 Severe -2.1 through -2.4 The Z-score is the number of standard deviations above or below age-matched controls. A Z-score of less than -1.5 would be considered abnormal. References: 1. NIH Osteoporosis and Related Bone Diseases www osteo.org 2. International Society for Clinical Densitometry www iscd.org 3. National Osteoporosis Foundation www nof.org Electronically Signed: Anson Cisneros MD at 9:09 EST ,
== END | disposition home or self-care (01) ==
LOC: OPBD 14:37
PROVIDERS: PCP Family Medicine; Referring Provider Nurse Practitioner Women's Health; Visit Provider Nurse Practitioner Women's Health
DX: Z78.0 Asymptomatic menopausal state (principal)
CPT/HCPCS: 77080

== ENCOUNTER 2023-07-26 11:00 | Outpatient (RCR) | payer OTHER, SELFPAY ==
--- NOTE | 2023-05-03 10:39 | HP.PTEVAL_ITS ---
Patient's Visit Information Visit Information Visit Information: ROSINA SANTORO is a 63 year old F referred to Physical Therapy by Dr. Muna Putnam MD with a diagnosis of Right Shoulder Pain. Date of Evaluation: 05/03/23 Physical Therapist: Norma Tony DPT Visit Plan Frequency: 2x /Week Duration: 4 Weeks Plan: Focus on scapular strength/stabilization HEP Given IE: Posture, Scapular Retraction, Bilateral Pizza Carry, Levator Stretch, [place] Stretch Subjective Subjective: Patient reports that her right shoulder has always really bothered her but in the last month its gotten worse- insidious onset of this flare up. Did have an x-rays (Degenerative changes. No acute fracture or other significant bony pathology). The pain is located is located in the anterior shoulder and it radiates in the elbow- agg: extn, IR behind the back and forward flexion Worst: 6/10. Best: 0/10 Eases: bringing it back to resting position. She does have some N/T in her hand- whole hand- She has been doing some water color painting and thats when the fingers go numb- its only the right hand- and she is right hand dominate. She has never had neck issues. She does move around standing/sitting and does not notice she is more tinging/numb in one position more than the other. Describes the pain in the shoulder as sharp. Sleep: does wake her- back and left side sleeper. Massage from Sandra today- 1x a month- She has more pain when she is closer to when she is due for a massage. 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 She has more N/T when she is sitting down and writting letters. No MRI. No Medications or injections. She does walking and stretching for yoga poses but no strength training for exercises- walks about an hour 4x a week. Does have some dizziness- hotflashes- MD is aware- hormonal. PMHx/Meds: no change since OBGYN visit 2021. Objective Objective: Posture: FH, RS- can correct with verbal cues but does not maintain throughout tx session Gait: no deviation noted- good arm swing and trunk rotation Palpation: tender along upper trap from occiput to top of acromion- levator insertion- medial border of the scapula- infraspinatus- supraspinatus, bicipital groove ROM: WFL in all planes of the cervical spine with discomfort and dizziness with SB and rotation bilateral and reports tightness. 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 Control: Right: 60 Left: 40 Sensation: WNL to gross touch Special Tests R Shoulder Empty Can - SS: Positive R Shoulder Neer - Impingement: Positive R Shoulder Beck Shad - Impingement: Positive Balance/Special Test Scores Quick DASH Score: 47.7250 Goals Goal 1:: Patient will be I with HEP and progression Goal Time Frame: 4-6 Weeks Goal 2:: Patient will maintain proper posture t/o tx session to demo increase scapular s/s Goal Time Frame: 4-6 Weeks Goal 3:: Patient will report no N/T for 1 week Goal Time Frame: 4-6 Weeks Goal 4:: Patient will report 80% improvement Goal Time Frame: 4-6 Weeks Rehabilitation Potential Physical Therapy Diagnosis: Patient presents with hypomobility- she has decreased pain free ROM, UE and scapular strength/stabilization and muscular endurance leading to poor posture and increased pain with ADL's. Rehabilitation Potential: Good Anticipated Interventions Patient/Client Instruction: Educate patient on: Benefits of Fitness Program Therapeutic Exercise to Include: Strength training, Endurance training, Balance training, Coordination, Agility training, Body mechanics, Postural training, F lexibilty training, Gait and locomotor training, Neuromotor development, Relaxation training, Dynamic Lumbar Stabilization and Scapular Strength/Stabilization For the Purpose of:: To improve muscle performance and motor function Text: Thank you for the opportunity to evaluate your patient. For Medicare and Medicare HMO plans, please review the plan of care and approve it. It will need to be FAXED BACK to us at [phone] for Medicare purposes. For Medicare only, by signing this I certify the plan of care. Please let me know if there are questions or concerns regarding this plan of care. Physician Signature: Date:
--- NOTE | 2023-06-03 10:24 | HP.PTREVAL ---
Re-Evaluation Intro: Dr. Muna Putnam MD, It has been my pleasure to treat ROSINA SANTORO over the last 10 visits for Right Shoulder Pain. Please see the progress note below for an update on the physical therapy plan of care! Subjective Subjective: Patient reports that her biggest take away has been posture and knowing what is going on. She feels that she is 75% better. She feels that she would like to continue therapy. Objective Objective/Function: Posture: more aware of posture throughout treatment session Gait: no deviation noted- good arm swing and trunk rotation Palpation: tender along upper trap from occiput to top of acromion- levator insertion- medial border of the scapula- infraspinatus- supraspinatus, bicipital groove ROM: WFL in all planes of the cervical spine with discomfort and dizziness with SB and rotation bilateral and reports tightness. Shoulder: WFL with pain- end range IR behind the back and abduction Strength: Scap: fair minus, Cervical Isometric: 4+/5, Shoulder: Flexion: 4+/5, Abd: 4+/5, IR: 4+/5, ER: 4+/5, Ext: 4+/5, Add: 4+/5, Elbow: 5/5, Sensation: WNL to gross touch Special Tests R Shoulder Empty Can - SS: Positive R Shoulder Neer - Impingement: Positive R Shoulder Beck Shad - Impingement: Positive Plan Plan Plan: 06/03/23: Continue with current POC- 2x a week for 3 weeks- possible follow up with MD for further evaluation Focus on scapular strength/stabilization Addition of manual traction okay-ELR Balance/Gait/Functional tests Balance/Special Test Scores Quick DASH Score: 25.0000 Goals Goals Goal 1:: Patient will be I with HEP and progression Goal Time Frame: 4-6 Weeks Goal Progress: Progressing Goal 2:: Patient will maintain proper posture t/o tx session to demo increase scapular s/s Goal Time Frame: 4-6 Weeks Goal Progress: Progressing Goal 3:: Patient will report no N/T for 1 week Goal Time Frame: 4-6 Weeks Goal Progress: Progressing Goal 4:: Patient will report 80% improvement Goal Time Frame: 4-6 Weeks Goal Progress: Progressing Anticipated Interventions Anticipated Interventions Patient/Client Instruction: Educate patient on: Benefits of Fitness Program Therapeutic Exercise to Include: Strength training, Endurance training, Balance training, Coordination, Agility training, Body mechanics, Postural training, Flexibilty training, Gait and locomotor training, Neuromotor development, Relaxation training, Dynamic Lumbar Stabilization and Scapular Strength/Stabilization For the Purpose of:: To improve muscle performance and motor function Re-Evaluation Ending Re-evaluation ending: Please do not hesitate to contact me at [phone] by phone or if you have questions or concerns regarding this new plan of care! Sincerely, CHARLOTTE EllisT
--- NOTE | 2023-06-28 11:33 | HP.PTREVAL ---
Re-Evaluation Intro: Dr. Muna Putnam MD, It has been my pleasure to treat ROSINA SANTORO over the last 16 visits for Right Shoulder Pain. Please see the progress note below for an update on the physical therapy plan of care! Subjective Subjective: I feel like I have improved, but I am not better yet Objective Objective/Function: R shoulder pain is minimal at 3/10 Pt continues to experience intermittent R UE radiculopathy Pt reports 80 % improvements Pt is I with HEP Plan Plan Plan: Follow up or discharge in one month Balance/Gait/Functional tests Balance/Special Test Scores Quick DASH Score: 11.3622 Goals Goals Goal 1:: Patient will be I with HEP and progression Goal Time Frame: 4-6 Weeks Goal Progress: Goal Met Goal 2:: Patient will maintain proper posture t/o tx session to demo increase scapular s/s Goal Time Frame: 4-6 Weeks Goal Progress: Unable to assess Goal 3:: Patient will report no N/T for 1 week Goal Time Frame: 4-6 Weeks Goal Progress: Progressing Goal 4:: Patient will report 80% improvement Goal Time Frame: 4-6 Weeks Goal Progress: Goal Met Anticipated Interventions Anticipated Interventions Patient/Client Instruction: Educate patient on: Benefits of Fitness Program Therapeutic Exercise to Include: Strength training, Endurance training, Balance training, Coordination, Agility training, Body mechanics, Postural training, Flexibilty training, Gait and locomotor training, Neuromotor development, Relaxation training, Dynamic Lumbar Stabilization and Scapular Strength/Stabilization For the Purpose of:: To improve muscle performance and motor function Re-Evaluation Ending Re-evaluation ending: Please do not hesitate to contact me at [phone] by phone or if you have questions or concerns regarding this new plan of care! Sincerely, Gary Hong, PT, ATC
--- NOTE | 2023-07-26 11:30 | HP.PTDCSUM ---
Discharge Summary D/C summary: It has been my pleasure to treat ROSINA SANTORO referred by Dr. Muna Putnam MD, with the diagnosis of Right Shoulder Pain for a total of 17 visit(s). Discharge Date: Please see the following information for a summary of their discharge status. Subjective Subjective: Pt reports she has improved some, but very little Pain R hand: Pain Intensity (Out of 10): 0 R shoulder: Pain Intensity (Out of 10): 0 Overall Improvement % Improvement: 20 Objective Objective/Function: R shoulder pain ranges from 0-9/10 R UE still goes numb intermittently Pt reports she is I with HEP and postural awareness at this time Goals Goal 1:: Patient will be I with HEP and progression Goal Progress: Goal Met Goal 2:: Patient will maintain proper posture t/o tx session to demo increase scapular s/s Goal Progress: Unable to assess Goal 3:: Patient will report no N/T for 1 week Goal Progress: Not Progressing Goal 4:: Patient will report 80% improvement Goal Progress: Not Progressing Plan Plan: Discontinue and recommend pt to return to doctor D/C Information d/c sentence: If there are questions or concerns regarding this patient's physical therapy, please feel free to call me at [phone]. Thank you for the referral of this patient. Sincerely, Gary Hong, PT, ATC Balance/Gait/Functional tests Balance/Special Test Scores Quick DASH Score: 50.0000 Improvement % Improvement: 20
== END 2023-07-26 19:00 | disposition home or self-care (01) ==
LOC: PT 11:00
PROVIDERS: PCP Family Medicine; Referring Provider Family Medicine; Visit Provider Family Medicine
DX: M77.8 Other enthesopathies, not elsewhere classified (principal)
CPT/HCPCS: 97110; 97140; 97162; 97164

== ENCOUNTER → 2024-06-18 | Outpatient (CLI) | payer OTHER, SELFPAY ==
--- NOTE | 2024-06-18 10:40 | BI_ITS ---
MAMMOGRAPHY - BILATERAL SCREENING REASON FOR EXAM: Female, 64 years old. Routine annual screening examination. PERTINENT HISTORY: Grandmother with breast cancer. Prior left excisional breast biopsy. TECHNIQUE: Digital bilateral breast nubia (3D mammographic acquisition) in the CC and MLO projections. 2-D mediolateral oblique (MLO) and craniocaudad (CC) views of both breasts were obtained. CAD: Full Field Digital Mammography with Computer Added Detection was performed. COMPARISON: Comparison is made with prior study June 14, 2023 and June 10, 2022. FINDINGS: Breast Composition: The breasts are extremely dense, which lowers the sensitivity of mammography. There are no dominant masses or suspicious calcifications. No other significant abnormalities are identified. There has been no significant change since the prior study. BI/SCRN MAMM (CAD)W/NUBIA BILAT IMPRESSION: Stable bilateral screening mammogram. Yearly follow-up mammogram recommended. (A) ASSESSMENT CATEGORY: BIRADS Category 2: Benign. A letter regarding these results will be sent to the patient by the facility within 30 days. Approximately 10% of breast cancers are not detected by mammography. A normal mammogram should not delay biopsy of a clinically suspicious abnormality. [id number] Electronically Signed: Anson Cisneros MD at 11:50 EST ,
== END | disposition home or self-care (01) ==
PROVIDERS: PCP Family Medicine; Referring Provider Nurse Practitioner Women's Health; Visit Provider Nurse Practitioner Women's Health
DX: Z12.31 Encounter for screening mammogram for malignant neoplasm of breast (principal); N89.8 Other specified noninflammatory disorders of vagina
CPT/HCPCS: 77063; 77067; 87070; 87205

== ENCOUNTER 2024-11-23 05:55 | Day surgery (SDC) | payer OTHER, SELFPAY ==
[2024-11-23] VITALS (8 sets, daily range): BP systolic 106–119; BP diastolic 70–74; PULSE 70–77; RESP 16; TEMP 36.2–36.6; O2SAT 99–100; BMI 24.8
--- NOTE | 2024-11-23 06:43 | PCM.PRE.AN2 ---
ASA Classification* ASA Classification ASA Classification: 2 Assessment & Plan Anesthesia* Anesthesia Assessment Anesthesia Assessment: Discussed sedation and/or anesthesia options, risks, benefits, and alternatives with patient/parents/legal guardian/POA. Questions invited. The patient/parents/legal guardian/POA seems to understand and agrees to proceed with anesthesia plan. Reviewed the physical assessment, medical history, allergy history and patient home medications list prior to surgery/procedure/anesthetic and documented any changes. Performed airway and anesthesia risk assessments. Anesthesia Type Anesthesia Type: MAC Anesthesia Focused Assessment* Temperature: 97.8 F Pulse Rate: 70 Blood Pressure: 119/74 Respiratory Rate: 16 Pulse Ox: 100 Airway Assessment Mouth opens: >3 cm Mallampati Score: II Focused Labs Anesthesia Preop lab: CBC WBC 4.5 K/mm3 (4.4-11.0) 04/29/23 15:55 04/29/23 RBC 4.19 M/mm3 (4.2-5.4) L 04/29/23 15:55 04/29/23 Hgb 12.9 g/dL (12.0-15.0) 04/29/23 15:55 04/29/23 Hct 38.7 % (37-47) 04/29/23 15:55 04/29/23 Plt Count 273 K/mm3 (150-450) 04/29/23 15:55 04/29/23 CHEMISTRY Potassium 4.1 mmol/L (3.5-5.1) 04/07/22 14:34 04/07/22 Sodium 140 mmol/L (136-145) 04/07/22 14:34 04/07/22 BUN 14 mg/dL (7-18) 04/07/22 14:34 04/07/22 Creatinine 0.72 mg/dL (0.55-1.02) 04/07/22 14:34 04/07/22 Glucose 90 mg/dL (74-106) 04/07/22 14:34 04/07/22 TSH 3.01 uIU/mL (0.358-3.74) 04/07/22 14:34 04/07/22 COAG Pre-Assessment Diagnosis/Proposed Procedure Planned Operative Procedure(s): (L) Left middle finger A1 lety release Anesthesia History Anesthesia History - microfabrication engineer manager: Anesthesia History - microfabrication engineer manager Hx Hospitalization No 11/14/24 14:39 Any Problems With Anesthesia No 11/14/24 14:39 Cholinesterase deficiency No 11/14/24 14:39 You/Your Family Experience No 11/14/24 14:39 fever (hyperthermia) with Relationship Recent Exposure to Contagious No 11/23/24 06:28 Disease Does patient have nerve No 11/14/24 14:39 stimulator Patient instructed to have device shut off --Does patient have Pacemaker No 11/23/24 06:28 or ICD? When Was Last Pacemaker Check QUESTION #4 FULL TEXT: You/Your Family Experience fever (hyperthermia) with Anesthesia Last Oral Intake Last Oral intake: Last Oral Intake NPO since 00:00 11/23/24 06:28 Meds taken in AM with sips of No 11/23/24 06:28 water? Meds patient instructed to take am of surgery PONV PONV - microfabrication engineer manager: PONV - microfabrication engineer manager Female Yes 11/14/24 14:39 HX of Motion Sickness Yes 11/14/24 14:39 HX of N/V After Surgery Yes 11/14/24 14:39 Non-Smoker Yes 11/14/24 14:39 Duration of Surgery greater No 11/14/24 14:39 than 60 minutes Number of Risk Factors 4 11/14/24 14:39 PONV Score Severe Risk 11/14/24 14:39 Height & Weight Height & Weight: Anesthesia: Height & Weight Height 5 ft 7 in 11/23/24 06:28 Weight: 71.9 kg 11/23/24 06:28 Body Mass Index (BMI) 24.8 11/23/24 06:28 Respiratory Assessment Respiratory Assessment - microfabrication engineer manager: Respiratory Tract Infection Hx - microfabrication engineer manager Hx Respiratory Tract Infection No 11/14/24 14:39 STOP Sleep Apnea STOP Sleep Apnea - microfabrication engineer manager: STOP Sleep Apnea - microfabrication engineer manager Hx Hypertension No 11/14/24 14:39 Hx Sleep Apnea No 11/14/24 14:39 CPAP BIPAP Do you snore loudly (louder No 11/14/24 14:39 than talking or can be heard Do you often feel tired/ No 11/14/24 14:39 fatigued/ sleepy during daytime? Has anyone observed you stop No 11/14/24 14:39 breathing during sleep? STOP Results Negative 11/14/24 14:39 QUESTION #5 FULL TEXT : Do you snore loudly (louder than talking or can be heard through closed doors)? 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 Specify any problems Hx of Preganancy in last 3 N/A 11/14/24 14:39 Months Nurse Filling Out Transfusion NBUCHER 11/14/24 14:39 & Questions: Date: 11/14/24 11/14/24 14:39 Time: 14:40 11/14/24 14:39 Patient unable to answer at this time (ie. confused, unrespo /Reproduction History /Reproductive History - microfabrication engineer manager: /Reproductive Hx- microfabrication engineer manager Hx Now No 11/14/24 14:39 Gestational Age (in weeks): EDC: Hx Hx Para Hx Section SAB No 11/14/24 14:39 Active Medications Active Medications: Current Medications Generic Name Dose Route Start Last Admin Trade Name Freq PRN Reason Stop Dose Admin Cefazolin Sodium 2 gm/ N/A 20 mls @ 400 mls/hr 11/23/24 07:30 IV 11/23/24 07:32 X1 ONE PFS Medical History Wears contact lenses Wears glasses Cancer Non-smoker Trigger finger, left middle finger Restless legs Anemia Viral encephalitis Home Medications ?Medication ?Instructions ?Recorded ?Last Taken ?Type multivitamin 1 cap PO DAILY 09/16/19 11/22/24 History estradiol 0.01% (0.1 mg/gram) See Rx Instructions vaginal 06/18/24 11/22/24 Rx vaginal cream .COMPLEX #42.5 grams estradiol 0.0375 mg/24 hr 1 patch transdermal 2XW #24 ea 06/18/24 11/22/24 Rx semiweekly transdermal patch pramipexole 0.5 mg tablet 0.5 mg PO QHS Restless leg 11/14/24 11/22/24 History Allergy/AdvReac Type Severity Reaction Status Date / Time ampicillin Allergy Mild Other Verified 11/23/24 06:27 Family History Father Colon cancer Heart disease heart valve replacement Grandmother Breast cancer Surgical History History of esophagogastroduodenoscopy (EGD) History of colonoscopy History of breast biopsy 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 History of hysterectomy History of LAVH H/O hernia repair Social History Smoking Status: Never smoker alcohol intake: current details: social substance use type: does not use caffeine: Yes what type of physical activity do you participate in: walking seatbelt use: always do you feel safe at home: Yes additional social history: 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
--- NOTE | 2024-11-23 06:51 | HP.PCM_ITS ---
HPI - General HPI Narrative ROSINA SANTORO, is a 64 F who presents for left middle finger A1 lety release. No changes to history and physical exam. Left middle finger marked. Risks alternatives benefits and postoperative instructions given. Patient understands no further questions okay to proceed. MR#: [id number] Acct: [id number] Name: ROSINA SANTORO Rep #: [id number] : 1960 Provider: Dr. Jm Rodríguez MD Age/Sex: 64/F Location: [facility] [email or web address] Status: Signed Intake Vital Signs 06/18/2411:19 10/08/2514:15 Height 5 ft 7 in 5 ft 7 in Weight: 158 lb 2 oz BMI 24.7 Intake Visit Reasons: LEFT HAND Chief Complaint: Left Hand - Trigger Finger Accompanied by: Self Is patient in pain?: Yes Pain scale (1-10): 4 Allergies ampicillin Allergy (Mild, Verified 10/08/24 15:16) Other Medications ?Medication ?Instructions ?Recorded ?Confirmed ?Type multivitamin 1 cap PO DAILY 09/16/19 10/08/24 History pramipexole 0.25 mg tablet 0.25 mg PO DAILY 06/10/22 10/08/24 Histo ry estradiol 0.01% (0.1 mg/gram) See Rx Instructions vaginal 06/18/24 10/08/24 Rx vaginal cream .COMPLEX #42.5 grams estradiol 0.0375 mg/24 hr 1 patch transdermal 2XW #24 ea 06/18/24 10/08/24 Rx semiweekly transdermal patch PFSH Medical History Trigger finger, left middle finger Restless legs Anemia Viral encephalitis Surgical History 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 History of hysterectomy History of [facility] H/O hernia repair Family History Father Colon cancer Heart disease heart valve replacementGrandmother Breast cancer Social History Smoking Status: Never smoker alcohol intake: current details: social substance use type: does not use caffeine: Yes what type of physical activity do you participate in: walking seatbelt use: always do you feel safe at home: Yes 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 Jm Rodríguez MD 10/08/24 [id number]. Part of today?s visit was documented by [ ], acting as scribe. ROSINA SANTORO is a 64 year old F here today for FU left middle finger trigger finger, had cortisone injection 8 months ago. The injection was effective but the pain has returned in the finger is locking up especially in flexion. It is a minor problem but is still quite bothersome for the patient. Coding Level of Care Code Off vis,est,level 3 Diagnoses Trigger finger, left middle finger M65.332 Comment Assessment and Plan Assessment and Plan (1) Trigger finger, left middle finger: Status: Acute Plan: 64-year-old pleasant female with a left middle finger trigger finger. Explained the diagnosis prognosis different treatment options the patient including but not limited to rest ice anti-inflammatories activity modification splinting cortisone injections or A1 lety volar surgical release. Patient wishes to go ahead with left middle finger A1 lety release discussed the pros and cons risk benefits of continued nonoperative management as well as the recovery after surgery 2 weeks to heal the incision generally 4 to 6 weeks of no heavy lifting or gripping but immediate range of motion of the fingers. Pros and cons risks and benefits were discussed with the patient including but not limited to infection, pain, stiffness, bleeding, damage to surrounding structures, neurovascular injury, recurrence or retear, failure or wear of hardware or fixation, bowstring, damage to tendon, instability, fracture, deep vein thrombosis and pulmonary embolism, anesthetic risks, , patient dissatisfaction, need for further surgery and other risks. Patient understood and wished to proceed with surgery, and signed the informed consent documentation. Ortho Exam General General: Yes no acute distress Neurologic: Yes alert and Yes oriented x3 Psychologic: Yes reasonable and appropriate Right Wrist/Hand Skin/Wound: No Swelling and No Ecchymosis Left Wrist/Hand Skin/Wound: Yes CDI, No Swelling, No Ecchymosis, Yes nail intact, Yes capillary refill normal and No erythema A1 lety trigger: Yes (middle, pain at volar a1 lety) Left Wrist: No Snuffbox tenderness Motor: EPL: 5, FDP-2: 5, 1st Dorsal Interosseous: 5 and APB: 5 Sensation: Radial: I, Ulnar: I and Median: I WRIST: obvious triggering middle finger. [facility] [place] Medical History Wears contact lenses Wears glasses Cancer Non-smoker Trigger finger, left middle finger Restless legs Anemia Viral encephalitis Home Medications ?Medication ?Instructions ?Recorded ?Last Taken ?Type multivitamin 1 cap PO DAILY 09/16/1911/13 History estradiol 0.01% (0.1 mg/gram) See Rx Instructions vagi nal 06/18/24 11/22/24 Rx vaginal cream .COMPLEX #42.5 grams estradiol 0.0375 mg/24 hr 1 patch transdermal 2XW #24 ea 06/18/24 11/22/24 Rx semiweekly transdermal patch pramipexole 0.5 mg tablet 0.5 mg PO QHS Restless leg 0 11/14/24 11/22/24 History Allergy/AdvReac Type Severity Reaction Status Date / Time ampicillin Allergy Mild Other Verified 11/23/24 06:27 Family History Father Colon cancer Heart disease heart valve replacement Grandmother Breast cancer Surgical History History of esophagogastroduodenoscopy (EGD) History of colonoscopy History of breast biopsy 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 History of hysterectomy History of [facility] H/O hernia repair Social History Smoking Status: Never smoker alcohol intake: current details: social substance use type: does not use caffeine: Yes what type of physical activity do you participate in: walking seatbelt use: always do you feel safe at home: Yes 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
[2024-11-23] MEDS: Cefazolin 2 GM in Syringe IV (07:20)
[2024-11-23] MEDS: Bupivacaine Mpf 0.5% 30 ML VIAL (07:34)
--- NOTE | 2024-11-23 07:46 | PCM.OPRPT ---
Problems Associated Problem List Diagnoses (1) Trigger finger, left middle finger: Procedures Musculoskeletal [id number]-29xxx: Other Procedure See Report Operative Report (Standard) Operative Information Date of Procedure: 11/23/24 Pre-Operative Diagnosis: Left middle finger trigger finger Post-Operative Diagnosis: Same Surgery/Procedure Performed: Left middle finger volar A1 lety release emergency planning and response manager: No Type of Anesthesia: General and Local RN Documented Start/Stop Times: Operation Date: 11/23/24 07:30 Case Time Into Pre-Op 11/23/24 06:04 Anesthesia Start 11/23/24 07:20 Into Room 11/23/24 07:20 Out of Pre-Op 11/23/24 07:25 Procedure Start 11/23/24 07:34 Procedure Start Time: 07:34 Procedure Stop Time: 07:48 Select all DRAINS/GRAFTS/IMPLANTS that apply: None Estimated Blood Loss: 5 Specimen collected: No Description of surgery: Patient brought to the operating room theater. Placed supine on the table. Hand table to the patient's left side. All bony prominences padded. SCDs on the legs. 2 g IV Ancef administered prior to the start of the procedure. General anesthesia induced. Tourniquet applied to the upper extremity appropriately padded. Bed turned 90 degrees. Upper extremity prepped and draped in the usual sterile fashion allowing over 3 minutes drying time prior to draping. Preoperative timeout performed to confirm the site patient and the surgery. Began by inflating the tourniquet to 250 mmHg. Use the iron hand to stabilize the hand. Used 2 cc of half percent bupivacaine around the incision site. Made a small longitudinal incision at the volar A1 lety of the left middle finger. Carried dissection down through skin and subcutaneous tissue to meticulous hemostasis. Identified the volar A1 lety made a longitudinal incision and that fully release this proximally and distally. Identified the tendons deliver these through the incision. Tendons were intact no signs of degeneration. Tourniquet let down meticulous hemostasis achieved wound thoroughly irrigated. Subcutaneous tissue closed with 3-0 Vicryl suture and skin with 3-0 Monocryl. Skin cleaned with wet dry followed application of Steri-Strips Adaptic 4 x 4 gauze and Damian wrap loosely wrapped. Patient woken up from a general anesthetic transferred off the operating table taken to postanesthetic care unit in stable condition. All sponge needle instrument counts were correct no complications plan for the patient gentle range of motion of the fingers no heavy lifting or gripping and follow-up in the office within [address] [place] [place]pt [id number] Surgical Findings: As above Complications Complications: No Admit VTE Documentation VTE Present on Admission: No VTE Mechan Device Prophylaxis: SCD's VTE Pharm Prophylaxis ordered?: No Reason prophylaxis not ordered: Treatment Not Indicated
--- NOTE | 2024-11-23 07:51 | EX.PCM.DISCH ---
Discharge Instructions Diet Discharge Diet: No restrictions Activity Discharge Activity: Return to Normal Activity Lifting Restrictions: no heavy lifting or gripping Keep extremity elevated above heart level: Operative Extremity Additional Activity Instructions:: ok for gentle finger rom Dressing / Incision Call your doctor if your incision/area has: Continuous Slow Oozing, Sudden Increased Bleeding, Increased Pain/ Swelling, Increased Redness, Foul Smelling Discharge and Swelling at the incision site Call your doctor if you observe: Fever of 101 or Higher, Coldness, Increased Pain and Numbness or Tingling Change Dressing in: 1 day Cleanse incision/area with: Do not get Incision Wet Follow Up Care Please Follow Up With: Jm Rodríguez MD When: within 2 weeks Test Results: Test results from this visit will be discussed in further detail at your follow-up appointment, if applicable. Discharge Plan Admission Attending Provider: Jm Rodríguez Primary Care Provider: Muna Putnam Instructions Patient Instructions: What Is Trigger Finger? Print Language: Jordanian Discharge Orders/Prescriptions Prescriptions: No Action multivitamin Capsule 1 cap PO DAILY estradiol 0.01 % (0.1 mg/gram) cream See Rx Instructions vaginal .COMPLEX Qty: 42.5 2RF Rx Instructions: small amount as directed vaginal every other day X 4 weeks then twice a week; estradiol 0.0375 mg/24 hr patch semiweekly 1 patch Transdermal 2XW Qty: 24 4RF pramipexole 0.5 mg tablet 0.5 mg PO QHS Referrals / Follow Up: Muna Putnam MD [Primary Care Provider] - Jm Rodríguez MD [Med Staff - Active Staff] - Disposition Disposition (needs filled in before D/C Order can be placed): Home, Self Care
--- NOTE | 2024-11-23 07:53 | PCM.POST.ANE ---
Anesthesia: Postop Eval I Current Vital Signs Temperature: 97.2 F Pulse Rate: 75 Blood Pressure: 108/70 Respiratory Rate: 16 Pulse Ox: 99 Oxygen Delivery Method: Room Air Assessment Airway patent: Yes Spontaneous unlabored respirations: Yes Mental status: Awake and Calm nausea: No Vomiting: No Anesthesia Complication: No Fluid Hydration Crystalloid volume administer (ml): 500 Total IV fluid infused: 500 Progress Note Anesthesia document: Postop Eval 1 completed: Yes
--- NOTE | 2024-11-23 08:22 | POSTOPAN2_ITS ---
Anesthesia Postop Eval I Sum Postop Eval Completion status Anesthesia document: Postop Eval 1 completed: Yes Anesthesia Postop Eval I Summary Anesthesia Postop Eval I Summary: Anesthesia Postop Eval I: Assessment Summary Airway patent Yes 11/23/24 07:54 WIRED SWEATBAND [email or web address] Spontaneous unlabored Yes 11/23/24 07:54 WIRED SWEATBAND [email or web address] respirations Mental status Awake,Calm 11/23/24 07:54 WIRED SWEATBAND [email or web address] nausea No 11/23/24 07:54 WIRED SWEATBAND [email or web address] Vomiting No 11/23/24 07:54 WIRED SWEATBAND [email or web address] Anesthesia Postop Eval I: Fluid Summary Crystalloid volume administer 500 11/23/24 07:54 WIRED SWEATBAND [email or web address] (ml) Colloids volume administered ( ml) Blood Product volume administered (ml) Total IV fluid infused 500 11/23/24 07:54 WIRED SWEATBAND [email or web address] Anesthesia Postop Eval I: Summary Notes Anesthesia Complication No 11/23/24 07:54 WIRED [email or web address] [email or web address] Anesthesia Complication Comment: Post-operative progress note Anesthesia: Postop Eval II Evaluation Mental status: Awake Pain Level: 0 nausea: No Vomiting: No
--- NOTE | 2024-11-23 08:22 | PCM.POSTANE2 ---
Anesthesia Postop Eval I Sum Postop Eval Completion status Anesthesia document: Postop Eval 1 completed: Yes Anesthesia Postop Eval I Summary Anesthesia Postop Eval I Summary: Anesthesia Postop Eval I: Assessment Summary Airway patent Yes 11/23/24 07:54 ELECTRICAL SIGN WIRER [email or web address] Spontaneous unlabored Yes 11/23/24 07:54 ELECTRICAL SIGN WIRER [email or web address] respirations Mental status Awake,Calm 11/23/24 07:54 ELECTRICAL SIGN WIRER [email or web address] nausea No 11/23/24 07:54 ELECTRICAL SIGN WIRER [email or web address] Vomiting No 11/23/24 07:54 ELECTRICAL SIGN WIRER [email or web address] Anesthesia Postop Eval I: Fluid Summary Crystalloid volume administer 500 11/23/24 07:54 ELECTRICAL SIGN WIRER [email or web address] (ml) Colloids volume administered ( ml) Blood Product volume administered (ml) Total IV fluid infused 500 11/23/24 07:54 ELECTRICAL SIGN WIRER [email or web address] Anesthesia Postop Eval I: Summary Notes Anesthesia Complication No 11/23/24 07:54 ELECTRICAL SIGN WIRER [email or web address] Anesthesia Complication Comment: Post-operative progress note Anesthesia: Postop Eval II Evaluation Mental status: Awake Pain Level: 0 nausea: No Vomiting: No
== END 2024-11-23 08:48 | disposition home or self-care (01) ==
LOC: SDC 06:04 → AC 06:06
PROVIDERS: PCP Family Medicine; Referring Provider Orthopaedic Surgery Sports Medicine; Visit Provider Orthopaedic Surgery Sports Medicine
PROC: (CPT 26055; principal; 2024-11-23 07:20)
DX: M65.332 Trigger finger, left middle finger (principal); G25.81 Restless legs syndrome; Z79.899 Other long term (current) drug therapy
CPT/HCPCS: 26055; 01810; A4216; J2405

== ENCOUNTER → 2025-02-14 | Outpatient (CLI) | payer OTHER, SELFPAY ==
[2025-02-14 18:47] LABS: AST(SGOT) 30 U/L (<=31); Alanine Aminotransfer ALT/SGPT 25 U/L (<=34); Albumin, Serum 4.5 g/dL (3.4-4.8); Alkaline Phosphatase 44 U/L (35-104); Anion Gap 11 (5-15); BUN 15 mg/dL (4-19); BUN/Creat Ratio 23.4 RATIO (10-20); Calcium,Total 9.0 mg/dL (7.6-11.0); Carbon Dioxide 23.8 mmol/L (21.0-32.0); Chloride 104 mmol/L (98-108); Ferritin 11 ng/mL (22-378); Globulin 2.8 g/dL (2.2-4.2); Glucose 89 mg/dL (70-99); Potassium 4.4 mmol/L (3.3-5.1); Vitamin B12 229 pg/mL (180-914)
[2025-02-14 18:54] LABS: Hematocrit 34.6 % (37-47); Hemoglobin 10.9 g/dL (12.0-15.0); Immature Granulocytes Count 0.010 X10^3/uL (0.0-0.0); Mean Corp Hgb Conc 31.5 g/dL (32-36); Mean Corpuscular Volume 85.0 fL (81-99); Mean Platelet Vol. 9.8 fl (6.2-12.0); NRBC Flagged by Analyzer 0 % (0-5); Platelet Count 300 K/mm3 (150-450); RBC Distribution Width CV 13.9 % (11.6-14.6); RBC Distribution Width SD 42.9 fl (35.1-43.9); Red Blood Count 4.07 M/mm3 (4.2-5.4); White Blood Count 3.9 K/mm3 (4.4-11.0)
[2025-02-14 19:11] LABS: FOLATES,SERUM (FOLIC ACID) 19.50 ng/mL (4.60-34.80)
[2025-02-14 19:45] LABS: Iron 50 ug/dL (50-170); Iron Binding Capacity,Total 421 ug/dL (250-450); Iron Binding Capacity,Unsat 371 ug/dL (228-428)
== END | disposition home or self-care (01) ==
LOC: MFPLAB 14:48
PROVIDERS: PCP Family Medicine; Referring Provider Family Medicine; Visit Provider Family Medicine
DX: E04.1 Nontoxic single thyroid nodule (principal); D50.9 Iron deficiency anemia, unspecified
CPT/HCPCS: 36415; 80053; 82607; 82728; 82746; 83540; 83550; 84439; 84443; 85025; 86376; 86800

== ENCOUNTER → 2025-02-20 | Outpatient (CLI) | payer OTHER, SELFPAY ==
--- NOTE | 2025-02-20 13:01 | US_ITS ---
PROCEDURE: THYROID 02/20/2025 REASON FOR EXAM: NODULE TECHNIQUE: THYROID COMPARISON: None FINDINGS: Right thyroid lobe size: 4.9 x 1.4 x 1.8 cm Left thyroid lobe size: 4.5 x 1.5 x 1.7 cm Isthmus: 0.16 cm Background parenchymal echotexture is homogeneous. Nodules: No obvious solid or cystic nodules. US/Thyroid IMPRESSION: Unremarkable study. No definite nodules. Reading Location: [place] [id number]
== END | disposition home or self-care (01) ==
LOC: US 12:58
PROVIDERS: PCP Family Medicine; Referring Provider Family Medicine; Visit Provider Family Medicine
DX: E04.1 Nontoxic single thyroid nodule (principal)
CPT/HCPCS: 76536

== ENCOUNTER → 2025-03-21 | Outpatient (CLI) | payer OTHER, SELFPAY ==
[2025-03-21 10:26] LABS: Hematocrit 36.2 % (37-47); Hemoglobin 11.2 g/dL (12.0-15.0); Immature Granulocytes Count 0.010 X10^3/uL (0.0-0.0); Mean Corp Hgb Conc 30.9 g/dL (32-36); Mean Corpuscular Volume 85.6 fL (81-99); Mean Platelet Vol. 9.5 fl (6.2-12.0); NRBC Flagged by Analyzer 0 % (0-5); Platelet Count 286 K/mm3 (150-450); RBC Distribution Width CV 14.4 % (11.6-14.6); RBC Distribution Width SD 44.5 fl (35.1-43.9); Red Blood Count 4.23 M/mm3 (4.2-5.4); White Blood Count 3.1 K/mm3 (4.4-11.0)
[2025-03-21 10:58] LABS: Ferritin 28 ng/mL (22-378); Iron 95 ug/dL (50-170); Iron Binding Capacity,Total 411 ug/dL (250-450); Iron Binding Capacity,Unsat 316 ug/dL (228-428)
== END | disposition home or self-care (01) ==
LOC: MFPLAB 09:34
PROVIDERS: PCP Family Medicine; Referring Provider Family Medicine; Visit Provider Family Medicine
DX: D50.9 Iron deficiency anemia, unspecified (principal)
CPT/HCPCS: 36415; 82728; 83540; 83550; 85025

== ENCOUNTER → 2025-04-23 | Outpatient (CLI) | payer OTHER, SELFPAY ==
[2025-04-23 15:29] LABS: Hematocrit 36.3 % (37-47); Hemoglobin 11.4 g/dL (12.0-15.0); Immature Granulocytes Count 0.010 X10^3/uL (0.0-0.0); Mean Corp Hgb Conc 31.4 g/dL (32-36); Mean Corpuscular Volume 87.3 fL (81-99); Mean Platelet Vol. 9.6 fl (6.2-12.0); NRBC Flagged by Analyzer 0 % (0-5); Platelet Count 294 K/mm3 (150-450); RBC Distribution Width CV 15.4 % (11.6-14.6); RBC Distribution Width SD 49.2 fl (35.1-43.9); Red Blood Count 4.16 M/mm3 (4.2-5.4); White Blood Count 4.0 K/mm3 (4.4-11.0)
== END | disposition home or self-care (01) ==
LOC: MFPLAB 12:23
PROVIDERS: PCP Family Medicine; Visit Provider Family Medicine
DX: D50.9 Iron deficiency anemia, unspecified (principal)
CPT/HCPCS: 36415; 85025

== ENCOUNTER → 2025-07-23 | Outpatient (CLI) | payer OTHER, SELFPAY ==
--- OUTSIDE RECORDS SUMMARY | 2025-07-23 07:40 | XMS RPT_ITS | CCD ---
Author Organization [facility] Care Team Providers Care [place] Pa[place] Operator Name Role Phone Ricardo HELICOPTER PILOT, Sabra Govea Unavailable ULI Ch RN, Dr. Muna Nguyen Primary Care Provider Dr. Muna Putnam Referring Provider Ricardo HELICOPTER PILOT, HELICOPTER PILOT-C Sabra Attending Provider Dr. Muna Putnam Primary Care Provider Dr. Muna Putnam Referring Provider Ricardo HELICOPTER PILOT, HELICOPTER PILOT-C Sabra Attending Provider Dr. Muna Putnam Primary Care Provider Dr. Muna Putnam Referring Provider Ricardo HELICOPTER PILOT, JO-C Sabra Attending Provider Dr. Muna Putnam MD Primary Care Provider Dr. Muna Putnam MD Referring Provider Jm Rodríguez MD Attending Provider Jm Rodríguez MD Referring Provider Marcos IGNACIO, Jm Other Provider Dr. Muna Putnam MD Primary Care Provider Jm Rodríguez MD Attending Provider Dr. Muna Putnam MD Referring Provider Dr. Dominick Schaffer MD Primary Care Provider Sarbjit IGNACIO, Dr. Dominick Hammer Attending Provider Dr. Dominick Schaffer MD Referring Provider IndyMuna Shamika Primary Care Provider JUAN ROBB Attending Unavailable JODUTCHIFF, MUNA SHAMIKA Primary Care Unavailable COURTNEY DERAS Referring Unavailable JOLLIFF, MUNA SHAMIKA Primary Care Unavailable COURTNEY DERAS Attending Unavailable Indy IGNACIO, Dr. Muna Govea Primary Care Provider Jm Rodríguez MD Attending Provider Sarbjit IGNACIO, Dr. Dominick Hammer Primary Care Physician Sarbjit IGNACIO, Dr. Dominick Hammer Attending Physician Dominick Schaffer Primary Care Unavailable Dominick Schaffer Attending Unavailable Ricardo HELICOPTER PILOT, Sabra Attending Unavailable Ricardo HELICOPTER PILOT, Sabra Referring Unavailable Jolliff, Muna S Primary Care Unavailable Dominick Schaffer Referring Unavailable Dominick Schaffer Primary Care Unavailable Dominick Schaffer Attending Unavailable Dominick Schaffer Primary Care Unavailable Dominick Schaffer Attending Unavailable Dominick Schaffer Referring Unavailable Jolliff, Muna S Primary Care Unavailable Jm Rodríguez Attending Unavailable Jm Rodríguez Referring Unavailable Dominick Schaffer Primary Care Unavailable Dominick Schaffer Attending Unavailable Dominick Schaffer Referring Unavailable Jolliff, Muna S Referring Unavailable Ricardo HELICOPTER PILOT, Sabra Attending Unavailable Jolliff, Muna S Primary Care Unavailable Jolliff, Muna S Primary Care Unavailable Jolliff, Muna S Referring Unavailable MollisonJm Attending Unavailable Jolliff, Muna S Primary Care Unavailable Jolliff, Muna S Referring Unavailable MollisonJm Attending Unavailable Jolliff, Muna S Primary Care Unavailable Jolliff, Muna S Referring Unavailable MollisonJm Attending Unavailable Jolliff, Muna S Primary Care Unavailable Jm Rodríguez Attending Unavailable Jm Rodríguez Referring Unavailable Jm Rodríguez Consulting Unavailable Dominick Schaffer Primary Care Unavailable Dominick Schaffer Attending Unavailable Dominick Schaffer Referring Unavailable Allergies Allergy Classification Reported Allergen(s) Allergy Type Date of Onset Reaction(s) Facility (3 sources) ampicillin; Translations: [AMPICILLIN] drug allergy 07-02-2005 [facility] (19 sources) Ampicillin Drug Allergy 07-02-2005 [facility] (1 source) Ampicillin Drug Allergy 12-07-2024 [facility] Repository Medications Current Medications Medication Drug Class(es) Dates Sig (Normalized) Sig (Original) estradiol 0.1 mg/ml vaginal cream (20 sources) Estrogen Start: 06-18-2024 estradiol (ESTRACE) 0.01 % (0.1 mg/gram) vaginal cream Use vaginally two times a week. 06/18/2024 Active Start: 06-18-2024 Start: 06-14-2023 apply 1 dose transde rmal route two times weekly Estradiol Active 1 PATCH TD TWICE A WEEK June 14, 2023 7:43am Start: 04-03-2018 End: 06-14-2023 Estradiol 0.0375 mg/24 hr pa tch semiweekly Discontinued 1 NMA TD EVERY WEEK 12 January 17, 2019 1:19pm May 23, 2019 8:18am Start: 04-03-2018 End: 06-14-2023 apply 1 dose transdermal route every week Estradiol Discontinued 1 PATCH TD EVERY WEEK January 17, 2019 12:19pm May 23, 2019 7:18am Start: 03-31-2017 apply 1 dose transde rmal route every week ESTRADIOL 0.0375 MG/24HR PTTW Apply one patch weekly ESTRADIOL [id number] Sabra Silva NP Start: 03-30-2016 End: 06-18-2024 Estradiol 0.0375 mg/24 hr pa tch semiweekly Discontinued 1 NMA TD TWICE A WEEK 06 12January 08, 2024 6:57pm June 18, 2024 12:46pm ferrous sulfate 325 mg oral tablet (4 sources) Start: 02-19-2025 take 1 tablet by mouth twice daily ferrous sulfate 325 mg (65 mg iron) tablet Take 325 mg by mouth two times a day. 02/19/2025 Active Multivitamin capsule (5 sources) Start: 09-16-2019 Start: 09-16-2019 Multivitamin c apsule Active 1 NMA PO DAILY September 16, 2019 1:00am Multivitamin preparation (10 sources) Start: 09-16-2019 take 1 capsule by mouth once daily multivitamin Active 1 CAP PO DAILY September 16, 2019 12:00am Start: 09-16-2019 take 1 capsule by [facility] once daily multivitamin Active 1 CAP PO DAILY September 16, 2019 1:00am MULTIVITAMIN TAB (4 sources) Start: 07-05-2005 MULTIVITAMIN T AB Take one(1) tablet daily. 0 07/05/2005 Active pramipexole dihydrochloride 0.5 mg oral tablet (20 sources) Nonergot Dopamine Agonist Start: 11-14-2024 take 1 tablet by mouth at bedtime Start: 06-10-2022 End: 11-14-2024 take 1 tablet by mouth once daily Pramipexole 0.25 mg tablet Discontinued 0.25 mg PO DAILY June 10, 2022 12:00am November 14, 2024 2:37pm valACYclovir 1000 mg oral tablet (4 sources) Herpesvirus Nucleoside Analog DNA Polymerase Inhibitor, Herpes Simplex Virus Nucleoside Analog DNA Polymerase Inhibitor, Herpes Zoster Virus Nucleoside Analog DNA Polymerase Inhibitor valacyclovir (VALTR EX) 1 g ORAL Tab Take 1 g by mouth as needed. Active Completed/Discontinued Medications Medication Drug Class(es) Dates Sig (Normalized) Sig (Original) calcium carbonate 600 mg oral capsule (2 sources) End: 02-21-2025 CALCIUM CARBONATE (CALCIUM 300 ORAL) Take 600 mg by mouth. 02/21/2025 Discontinued calcium chloride 0.0014 meq/ml / potassium chloride 0.004 meq/ml / sodium chloride 0.103 meq/ml / sodium lactate 0.028 meq/ml injectable solution (1 source) Start: 03-07-2025 End: 03-07-2025 take 30 mL intravenously every hour 30 mL/hr, INTRAVENOUS, CONTINUOUS, Starting on Evelin 03/07/25 at 1130, Until Evelin 03/07/25 at 1225, Preprocedure COMPOUNDED PRESCRIPTION (2 sources) Start: 07-05-2005 End: 02-21-2025 COMPOUNDED PRESCRIPTION vitamin b 6 once daily 0 07/05/2005 02/21/2025 Discontinued Start: 07-05-2005 COMPOUNDED PRE SCRIPTION vitamin b 6 once daily 0 07/05/2005 Active diphenhydrAMINE (1 source) Histamine-1 Receptor Antagonist Start: 03-07-2025 End: 03-07-2025 12.5-50 mg, INTRAVENOUS, DIRECTED, Starting on Evelin 03/07/25 at 1200, Until Evelin 03/07/25 at 1559, DOSING DIRECTED BY PHYSICIAN FOR PROCEDURAL SEDATION ONLY, Intraprocedure 1 ml fentaNYL 0.05 mg/ml injection (1 source) Opioid Agonist Start: 03-07-2025 End: 03-07-2025 25-100 mcg, INTRAVENOUS, DIRECTED, Starting on Evelin 03/07/25 at 1200, Until Evelin 03/07/25 at 1559, DOSING DIRECTED BY PHYSICIAN FOR PROCEDURAL SEDATION ONLY, Intraprocedure fluconazole 150 mg oral tablet (15 sources) Azole Antifungal Start: 01-30-2019 End: 05-23-2019 Fluconazole 150 mg tablet Discontinued 150 mg PO .COMPLEX 2 0 January 30, 2019 12:00am May 23, 2019 8:02am 150 mg PO take one po now and repeat in 3 days ivermectin 10 mg/ml topical cream (2 sources) Antiparasitic, Pediculicide End: 02-21-2025 ivermectin (SOOLANTRA) 1 % crea Apply to affected area once daily. To face 02/21/2025 Discontinued lysine 500 mg oral tablet (2 sources) Start: 08-31-2010 End: 02-21-2025 take 1 tablet by mouth twice daily Lysine 500 mg ORAL Tab one tablet twice daily 0 08/31/2010 02/21/2025 Discontinued 5 ml midazolam 1 mg/ml injection (1 source) Benzodiazepine Start: 03-07-2025 End: 03-07-2025 1-5 mg, INTRAVENOUS, DIRECTED, Starting on Evelin 03/07/25 at 1200, Until Evelin 03/07/25 at 1559, DOSING DIRECTED BY PHYSICIAN FOR PROCEDURAL SEDATION ONLY, Intraprocedure predniSONE 10 mg oral tablet (15 sources) Start: 09-16-2019 End: 05-29-2020 Prednisone 10 mg tablet Discontinued 10 mg PO .COMPLEX 30 0 September 16, 2019 1:00am May 29, 2020 8:51am Take 4 pills for 3 days, 3 pills for 3 days, 2 pills for 3 days, take 1 pill for 3 days thuja (15 sources) Start: 09-16-2019 End: 05-29-2020 thuja Discontinued SL 0 September 16, 2019 1:00am May 29, 2020 8:52am Start: 09-16-2019 End: 05-29-2020 thuja Discontinued SL 2019 12:00am May 29, 2020 7:52am Start: 09-16-2019 End: 05-29-2020 meseret Discontinued SL Februa 2019 1:00am May 29, 2020 8:52am Problems Active Problems Problem Classification Problem Date Documented Date Episodic/Chronic Deficiency and other anemia (12 sources) Anemia; Translations: [Anemia, unspecified] 06-10-2022 Episodic Deficiency and other anemia (2 sources) Iron deficiency anemia, unspecified; Translations: [Iron deficiency anemia, unspecified] Onset: 02-18-2025 Episodic Genitourinary symptoms and ill-defined conditions (5 sources) Urinary incontinence; Translations: [Unspecified urinary incontinence] 06-18-2024 Chronic Comment on above: kegels, estradiol cr eam Headache; including migraine (15 sources) Headache; Translations: [Headache] 05-17-2021 Episodic Menopausal disorders (4 sources) Menopausal symptom; Translations: [Menopausal and female climacteric states] Onset: 01-21-2012 01-21-2012 Chronic Other aftercare (15 sources) Drug therapy finding; 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] 06-02-2021 Episodic Comment on above: patch Other connective tissue disease (15 sources) Triggering of digit; Translations: [Trigger finger, left middle finger] 02-02-2024 Episodic Other hereditary and degenerative nervous system conditions (12 sources) Restless legs; Translations: [Restless legs syndrome] 06-10-2022 Chronic Residual codes; unclassified (20 sources) Family history of cancer of colon; Translations: [Family history of malignant neoplasm of digestive organs] Onset: 03-07-2025 05-03-2018 Episodic Residual codes; unclassified (7 sources) Postmenopausal state; Translations: [Asymptomatic menopausal state] 06-14-2023 Episodic Residual codes; unclassified (3 sources) Family history of malignant neoplasm of digestive organs; Translations: [Family history of malignant neoplasm of gastrointestinal tract] Onset: 03-07-2025 06-14-2023 Episodic Thyroid disorders (1 source) Nontoxic single thyroid nodule; Translations: [Nontoxic single thyroid nodule] Onset: 02-25-2025 Chronic Unclassified (1 source) Screening mammography ; Translations: [Encounter for screening mammogram for malignant neoplasm of breast] Onset: 03-31-2017 03-31-2017 Unclassified (1 source) Gynecologic examination ; Translations: [Encounter for gynecological examination (general) (routine) without abnormal findings] Onset: 03-31-2017 03-31-2017 Unclassified (1 source) Hormone replacement therapy ; Translations: [Hormone replacement therapy (postmenopausal)] Onset: 03-31-2017 03-31-2017 Past or Other Problems Problem Classification Problem Date Documented Da te Episodic/Chronic Nonmalignant breast conditions (4 sources) Breast lump; Translations: [Unspecified lump in unspecified breast] Onset: 01-21-2012 Resolved: 03-30-2016 03-30-2016 Episodic Other aftercare (5 sources) Other residential (current) drug therapy; Translations: [Long-term (current) use of other medications] Episodic Other bone disease and musculoskeletal deformities (4 sources) Tietze's disease; Translations: [Chondrocostal junction syndrome [Tietze]] Onset: 07-15-2008 07-15-2008 Episodic Other connective tissue disease (1 source) Trigger finger, left middle finger; Translations: [Trigger finger, left middle finger] Onset: 11-23-2024 Episodic Other screening for suspected conditions (not mental disorders or infectious disease) (7 sources) Patient encounter status; Translations: [Encounter for screening for malignant neoplasm of colon] Onset: 07-06-2024 02-20-2025 Episodic Residual codes; unclassified (2 sources) Asymptomatic menopausal state; Translations: [Asymptomatic postmenopausal status (age-related) (natural)] 06-14-2023 Episodic Unclassified (15 sources) 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 03-05-2022 Unclassified (2 sources) Patient encounter status 02-21-2025 Results Test Name Value Interpretation Reference Range Facility Absolute lymphocyte countOrd ered By: Dominick Schaffer on 04-23-2025 Lymphocytes Auto (Unsp spec) [#/Vol] 1.27 10*3/uL 0.83-4.51 [facility] Absolute neutrophil countOrd ered By: Dominick Schaffer on 04-23-2025 Neutrophils (Bld) [#/Vol] 2.2 10*3/uL 2.0-7.7 [facility] Automated lymphocyte count a s percentage of total leukocytesOrdered By: Dominick Schaffer on 04-23-2025 Lymphocytes/100 WBC Auto (Unsp spec) 31.9 % 19-41 [facility] Basophil percentageOrdered B y: Dominick Schaffer on 04-23-2025 Basophils/100 WBC (Bld) 0.8 % 0-1 [facility] CBC W/Diff, Automatedon Absolute Lymph 1.27 X10 3/uL Normal 0.83-4.51 [facility] Comment on above: Performed By: #### L 100.0100, L503.6030, [id number] #### [facility] [address] [place], [address] Absolute Neut 2.2 X10 3/uL Normal 2.0-7.7 [facility] Comment on above: Performed By: #### L 100.0100, L503.6030, [id number] #### [facility] [address] [place], [address] Basophils/100 WBC (Bld) 0.8 % Normal 0-1 [facility] Comment on above: Performed By: #### L 100.0100, L503.6030, [id number] #### [facility] [address] [place], [address] Eosinophils/100 WBC (Bld) 3.8 % Normal 0-5 [facility] Comment on above: Performed By: #### L 100.0100, L503.6030, [id number] #### [facility] [address] [place], [address] Erythrocyte distribution width (RBC) [Ratio] 15.4 % High 11.6-14.6 [facility] Comment on above: Performed By: #### L 100.0100, L503.6030, [id number] #### [facility] [address] [place], [address] Hematocrit (Bld) [Volume fraction] 36.3 % Low 37-47 [facility] Comment on above: Performed By: #### L 100.0100, L503.6030, [id number] #### [facility] [address] [place], [address] Hemoglobin (Bld) [Mass/Vol] 11.4 g/dL Low 12.0-15.0 [facility] Comment on above: Performed By: #### L 100.0100, L503.6030, [id number] #### [facility] [address] [place], [address] IG% 0.300 Normal 0.0-0.9 [facility] Comment on above: Result Comment: IG% - Immature Granulocytes (promyelocytes, myelocytes and metamyelocytes) > 1% indicates that a LEFT SHIFT is Present. Performed By: #### L 100.0100, L503.6030, [id number] #### [facility] [address] [place], [address] Lymphocytes/100 WBC (Bld) 31.9 % Normal 19-41 [facility] Comment on above: Performed By: #### L 100.0100, L503.6030, [id number] #### [facility] [address] [place], [address] MCH (RBC) [Entitic mass] 27.4 pg Normal 27.0-32.0 [facility] Comment on above: Performed By: #### L 100.0100, L503.6030, [id number] #### [facility] [address] [place], [address] MCHC (RBC) [Mass/Vol] 31.4 g/dL Low 32-36 [facility] Comment on above: Performed By: #### L 100.0100, L503.6030, [id number] #### [facility] [address] [place], [address] MCV (RBC) [Entitic vol] 87.3 fL Normal 81-99 [facility] Comment on above: Performed By: #### L 100.0100, L503.6030, [id number] #### [facility] [address] [place], [address] Monocytes/100 WBC (Bld) 8.0 % Normal 0-10 [facility] Comment on above: Performed By: #### L 100.0100, L503.6030, [id number] #### [facility] [address] [place], [address] Neutrophils/100 WBC (Bld) 55.2 % Normal 47-70 [facility] Comment on above: Performed By: #### L 100.0100, L503.6030, [id number] #### [facility] [address] [place], [address] Nucleated RBC (Bld) [#/Vol] 0 10*3/uL Normal 0-5 [facility] Comment on above: Performed By: #### L 100.0100, L503.6030, [id number] #### [facility] [address] [place], [address] Platelet mean volume (Bld) [Entitic vol] 9.6 fL Normal 6.2-12.0 [facility] Comment on above: Performed By: #### L 100.0100, L503.6030, [id number] #### [facility] [address] [place], [address] Platelets (Bld) [#/Vol] 294 10*3/uL Normal 150-450 [facility] Comment on above: Performed By: #### L 100.0100, L503.6030, [id number] #### [facility] [address] [place], [address] RBC (Bld) [#/Vol] 4.16 10*6/uL Low 4.2-5.4 [facility] Comment on above: Performed By: #### L 100.0100, L503.6030, [id number] #### [facility] [address] [place], [address] RDW SD 49.2 fl High 35.1-43.9 [facility] Comment on above: Performed By: #### L 100.0100, L503.6030, [id number] #### [facility] [address] [place], [address] WBC (Bld) [#/Vol] 4.0 10*3/uL Low 4.4-11.0 [facility] Comment on above: Performed By: #### L 100.0100, L503.6030, [id number] #### [facility] [address] [place], [address] Eosinophil percentageOrdered By: Dominick Schaffer on 04-23-2025 Eosinophils/100 WBC (Bld) 3.8 % 0-5 [facility] Erythrocyte distribution wid th ratioOrdered By: Dominick Schaffer on 04-23-2025 Erythrocyte distribution width (RBC) [Ratio] 15.4 % High 11.6-14.6 [facility] Erythrocyte distribution wid th standard deviationOrdered By: Dominick Schaffer on 04-23-2025 Erythrocyte distribution width (RBC) [Ratio] 49.2 fl High 35.1-43.9 [facility] Hematocrit Auto (Bld) [Volum e fraction]Ordered By: Dominick Schaffer on 04-23-2025 Hematocrit (Bld) [Volume fraction] 36.3 % Low 37-47 [facility] Hemoglobin measurementOrdere d By: Dominick Schaffer on 04-23-2025 Hemoglobin (Bld) [Mass/Vol] 11.4 g/dL Low 12.0-15.0 [facility] Immature granulocytes/100 WB C Auto (Bld)Ordered By: Dominick Schaffer on 04-23-2025 Immature granulocytes/100 WBC (Bld) 0.300 % 0.0-0.9 [facility] Comment on above: IG% - Immature Granu locytes (promyelocytes, myelocytes and metamyelocytes) > 1% indicates that a LEFT SHIFT is Present. MCV (mean corpuscular volume ) determinationOrdered By: Dominick Schaffer on 04-23-2025 MCV (RBC) [Entitic vol] 87.3 fL 81-99 [facility] Mean corpuscular hemoglobin (MCH) determinationOrdered By: Dominick Schaffer on 04-23-2025 MCH (RBC) [Entitic mass] 27.4 pg 27.0-32.0 [facility] Mean corpuscular hemoglobin concentration (MCHC) determinationOrdered By: Dominick Schaffer on 04-23-2025 MCHC (RBC) [Mass/Vol] 31.4 g/dL Low 32-36 [facility] Mean platelet volume determi nationOrdered By: Dominick Schaffer on 04-23-2025 Platelet mean volume (Bld) [Entitic vol] 9.6 fL 6.2-12.0 [facility] Monocyte percentageOrdered B y: Dominick Schaffer on 04-23-2025 Monocytes/100 WBC (Bld) 8.0 % 0-10 [facility] Neutrophil percentageOrdered By: Dominick Schaffer on 04-23-2025 Neutrophils/100 WBC (Bld) 55.2 % 47-70 [facility] Nucleated red blood cell per centageOrdered By: Dominick Schaffer on 04-23-2025 Nucleated RBC/100 WBC (Bld) [Ratio] 0 % 0-5 [facility] Platelet countOrdered By: Breana Schaffer on 04-23-2025 Platelets (Bld) [#/Vol] 294 10*3/uL 150-450 [facility] RBC Auto (Bld) [#/Vol]Ordere d By: Dominick Schaffer on 04-23-2025 RBC (Bld) [#/Vol] 4.16 10*6/uL Low 4.2-5.4 [facility] Urinalysis, Routine (Dipstic k)on 04-23-2025 BILIRUBIN URINE Normal Negative [facility] Comment on above: Order Comment: Urine , Random Result Comment: ORDE RED WRONG Performed By: #### L 100.0100, L503.6030, [id number] #### [facility] [address] [place], [address] Clarity (U) Normal Clear [facility] Comment on above: Order Comment: Urine , Random Result Comment: ORDE RED WRONG Performed By: #### L 100.0100, L503.6030, [id number] #### [facility] [address] [place], [address] Color (U) Normal Yellow [facility] Comment on above: Order Comment: Urine , Random Result Comment: ORDE RED WRONG Performed By: #### L 100.0100, L503.6030, [id number] #### [facility] [address] [place], [address] GLUCOSE, UR Normal Normal [facility] Comment on above: Order Comment: Urine , Random Result Comment: ORDE RED WRONG Performed By: #### L 100.0100, L503.6030, [id number] #### [facility] [address] [place], [address] KETONE UR Normal Negative [facility] Comment on above: Order Comment: Urine , Random Result Comment: ORDE RED WRONG Performed By: #### L 100.0100, L503.6030, [id number] #### [facility] [address] [place], [address] LEUK ESTERASE Normal Negative [facility] Comment on above: Order Comment: Urine , Random Result Comment: ORDE RED WRONG Performed By: #### L 100.0100, L503.6030, [id number] #### [facility] [address] [place], [address] Nitrite Ql (U) Normal Negative [facility] Comment on above: Order Comment: Urine , Random Result Comment: ORDE RED WRONG Performed By: #### L 100.0100, L503.6030, [id number] #### [facility] [address] [place], [address] OCCULT BLOOD-UR Normal Negative [facility] Comment on above: Order Comment: Urine , Random Result Comment: ORDE RED WRONG Performed By: #### L 100.0100, L503.6030, [id number] #### [facility] [address] [place], [address] pH UR Normal 5.0 - 8.0 [facility] Comment on above: Order Comment: Urine , Random Result Comment: ORDE RED WRONG Performed By: #### L 100.0100, L503.6030, [id number] #### [facility] [address] [place], [address] PROT DIPSTX Normal Negative [facility] Comment on above: Order Comment: Urine , Random Result Comment: ORDE RED WRONG Performed By: #### L 100.0100, L503.6030, [id number] #### [facility] [address] [place], [address] SP.GR. DIPSTX Normal 1.002-1.03 0 [facility] Comment on above: Order Comment: Urine , Random Result Comment: ORDE RED WRONG Performed By: #### L 100.0100, L503.6030, L503.6550 #### [facility] [address] [place], [address] UR Preservative Normal [facility] Comment on above: Order Comment: Urine , Random Result Comment: ORDE RED WRONG Performed By: #### L 100.0100, L503.6030, L503.6550 #### [facility] [address] [place], [address] UROBILI Normal Normal [facility] Comment on above: Order Comment: Urine , Random Result Comment: ORDE RED WRONG Performed By: #### L 100.0100, L503.6030, L503.6550 #### [facility] [address] [place], [address] White blood cell (WBC) count Ordered By: Dominick Schaffer on 04-23-2025 WBC (Bld) [#/Vol] 4.0 10*3/uL Low 4.4-11.0 [facility] Absolute lymphocyte countOrd ered By: Dominick Schaffer on 03-21-2025 Lymphocytes Auto (Unsp spec) [#/Vol] 1.33 10*3/uL 0.83-4.51 [facility] Absolute neutrophil countOrd ered By: Dominick Schaffer on 03-21-2025 Neutrophils (Bld) [#/Vol] 1.1 10*3/uL Low 2.0-7.7 [facility] Automated lymphocyte count a s percentage of total leukocytesOrdered By: Dominick Schaffer on 03-21-2025 Lymphocytes/100 WBC Auto (Unsp spec) 42.8 % High 19-41 [facility] Basophil percentageOrdered B y: Dominick Schaffer on 03-21-2025 Basophils/100 WBC (Bld) 1.3 % High 0-1 [facility] CBC W/Diff, Automatedon Absolute Lymph 1.33 X10 3/uL Normal 0.83-4.51 [facility] Comment on above: Performed By: #### L 100.0100, L503.6030, L503.6550 #### [facility] [address] [place], [address] Absolute Neut 1.1 X10 3/uL Low 2.0-7.7 [facility] Comment on above: Performed By: #### L 100.0100, L503.6030, L503.6550 #### [facility] [address] [place], [address] Basophils/100 WBC (Bld) 1.3 % High 0-1 [facility] Comment on above: Performed By: #### L 100.0100, L503.6030, L503.6550 #### [facility] [address] [place], [address] Eosinophils/100 WBC (Bld) 8.7 % High 0-5 [facility] Comment on above: Performed By: #### L 100.0100, L503.6030, L503.6550 #### [facility] [address] [place], [address] Erythrocyte distribution width (RBC) [Ratio] 14.4 % Normal 11.6-14.6 [facility] Comment on above: Performed By: #### L 100.0100, L503.6030, L503.6550 #### [facility] [address] [place], [address] Hematocrit (Bld) [Volume fraction] 36.2 % Low 37-47 [facility] Comment on above: Performed By: #### L 100.0100, L503.6030, L503.6550 #### [facility] [address] [place], [address] Hemoglobin (Bld) [Mass/Vol] 11.2 g/dL Low 12.0-15.0 [facility] Comment on above: Performed By: #### L 100.0100, L503.6030, L503.6550 #### [facility] [address] [place], [address] IG% 0.300 Normal 0.0-0.9 [facility] Comment on above: Result Comment: IG% - Immature Granulocytes (promyelocytes, myelocytes and metamyelocytes) > 1% indicates that a LEFT SHIFT is Present. Performed By: #### L 100.0100, L503.6030, L503.6550 #### [facility] [address] [place], [address] Lymphocytes/100 WBC (Bld) 42.8 % High 19-41 [facility] Comment on above: Performed By: #### L 100.0100, L503.6030, L503.6550 #### [facility] [address] [place], [address] MCH (RBC) [Entitic mass] 26.5 pg Low 27.0-32.0 [facility] Comment on above: Performed By: #### L 100.0100, L503.6030, L503.6550 #### [facility] [address] [place], [address] MCHC (RBC) [Mass/Vol] 30.9 g/dL Low 32-36 [facility] Comment on above: Performed By: #### L 100.0100, L503.6030, L503.6550 #### [facility] [address] [place], [address] MCV (RBC) [Entitic vol] 85.6 fL Normal 81-99 [facility] Comment on above: Performed By: #### L 100.0100, L503.6030, L503.6550 #### [facility] [address] [place], [address] Monocytes/100 WBC (Bld) 10.9 % High 0-10 [facility] Comment on above: Performed By: #### L 100.0100, L503.6030, L503.6550 #### [facility] [address] [place], [address] Neutrophils/100 WBC (Bld) 36.0 % Low 47-70 [facility] Comment on above: Performed By: #### L 100.0100, L503.6030, L503.6550 #### [facility] [address] [place], [address] Nucleated RBC (Bld) [#/Vol] 0 10*3/uL Normal 0-5 [facility] Comment on above: Performed By: #### L 100.0100, L503.6030, L503.6550 #### [facility] [address] [place], [address] Platelet mean volume (Bld) [Entitic vol] 9.5 fL Normal 6.2-12.0 [facility] Comment on above: Performed By: #### L 100.0100, L503.6030, L503.6550 #### [facility] [address] [place], [address] Platelets (Bld) [#/Vol] 286 10*3/uL Normal 150-450 [facility] Comment on above: Performed By: #### L 100.0100, L503.6030, L503.6550 #### [facility] [address] [place], [address] RBC (Bld) [#/Vol] 4.23 10*6/uL Normal 4.2-5.4 [facility] Comment on above: Performed By: #### L 100.0100, L503.6030, L503.6550 #### [facility] [address] [place], [address] RDW SD 44.5 fl High 35.1-43.9 [facility] Comment on above: Performed By: #### L 100.0100, L503.6030, L503.6550 #### [facility] [address] [place], [address] WBC (Bld) [#/Vol] 3.1 10*3/uL Low 4.4-11.0 [facility] Comment on above: Performed By: #### L 100.0100, L503.6030, L503.6550 #### [facility] [address] [place], [address] Eosinophil percentageOrdered By: Dominick Schaffer on 03-21-2025 Eosinophils/100 WBC (Bld) 8.7 % High 0-5 [facility] Erythrocyte distribution wid th ratioOrdered By: Dominick Schaffer on 03-21-2025 Erythrocyte distribution width (RBC) [Ratio] 14.4 % 11.6-14.6 [facility] Erythrocyte distribution wid th standard deviationOrdered By: Dominick Schaffer on 03-21-2025 Erythrocyte distribution width (RBC) [Ratio] 44.5 fl High 35.1-43.9 [facility] Ferritinon 03-21-2025 Ferritin [Mass/Vol] 28 ng/mL Normal 22-378 [facility] Comment on above: Performed By: #### L 100.0100, L503.6030, L503.6550 #### [facility] [address] [place], [place], [id number] Hematocrit Auto (Bld) [Volum e fraction]Ordered By: Dominick Schaffer on 03-21-2025 Hematocrit (Bld) [Volume fraction] 36.2 % Low 37-47 [facility] Hemoglobin measurementOrdere d By: Dominick Schaffer on 03-21-2025 Hemoglobin (Bld) [Mass/Vol] 11.2 g/dL Low 12.0-15.0 [facility] Immature granulocytes/100 WB C Auto (Bld)Ordered By: Dominick Schaffer on 03-21-2025 Immature granulocytes/100 WBC (Bld) 0.300 % 0.0-0.9 [facility] Comment on above: IG% - Immature Granu locytes (promyelocytes, myelocytes and metamyelocytes) > 1% indicates that a LEFT SHIFT is Present. Iron measurement (mass/mass) Ordered By: Dominick Schaffer on 03-21-2025 Iron (Unsp spec) [Mass/Mass] 95 ug/dL 50-170 [facility] Iron+Iron Binding Capacityon 03-21-2025 Iron [Mass/Vol] 95 ug/dL Normal 50-170 [facility] Comment on above: Performed By: #### L 100.0100, L503.6030, L503.6550 #### [facility] [address] [place], [place], [id number] IRON SATURATION 23.0 Normal 13-59 [facility] Comment on above: Performed By: #### L 100.0100, L503.6030, L503.6550 #### [facility] [address] [place], [address] TIBC 411 ug/dL Normal 250-450 [facility] Comment on above: Performed By: #### L 100.0100, L503.6030, L503.6550 #### [facility] [address] [place], [address] UIBC 316 ug/dL Normal 228-428 [facility] Comment on above: Performed By: #### L 100.0100, L503.6030, L503.6550 #### [facility] [address] [place], [address] MCV (mean corpuscular volume ) determinationOrdered By: Dominick Schaffer on 03-21-2025 MCV (RBC) [Entitic vol] 85.6 fL 81-99 [facility] Mean corpuscular hemoglobin (MCH) determinationOrdered By: Dominick Schaffer on 03-21-2025 MCH (RBC) [Entitic mass] 26.5 pg Low 27.0-32.0 [facility] Mean corpuscular hemoglobin concentration (MCHC) determinationOrdered By: Dominick Schaffer on 03-21-2025 MCHC (RBC) [Mass/Vol] 30.9 g/dL Low 32-36 [facility] Mean platelet volume determi nationOrdered By: Dominick Schaffer on 03-21-2025 Platelet mean volume (Bld) [Entitic vol] 9.5 fL 6.2-12.0 [facility] Monocyte percentageOrdered B y: Dominick Schaffer on 03-21-2025 Monocytes/100 WBC (Bld) 10.9 % High 0-10 [facility] Neutrophil percentageOrdered By: Dominick Schaffer on 03-21-2025 Neutrophils/100 WBC (Bld) 36.0 % Low 47-70 [facility] No Panel InformationOrdered By: Dominick Schaffer on 03-21-2025 Unsaturated Iron Binding Capacity 316 ug/dL 228-428 [facility] Nucleated red blood cell per centageOrdered By: Dominick Schaffer on 03-21-2025 Nucleated RBC/100 WBC (Bld) [Ratio] 0 % 0-5 [facility] Platelet countOrdered By: Breana Schaffer on 03-21-2025 Platelets (Bld) [#/Vol] 286 10*3/uL 150-450 [facility] RBC Auto (Bld) [#/Vol]Ordere d By: Dominick Schaffer on 03-21-2025 RBC (Bld) [#/Vol] 4.23 10*6/uL 4.2-5.4 [facility] Serum or plasma ferritin oscar surement (mass/volume)Ordered By: Dominick Schaffer on 03-21-2025 Ferritin [Mass/Vol] 28 ng/mL 22-378 [facility] Serum or plasma iron saturat ion measurement (mass fraction)Ordered By: Domiinck Schaffer on 03-21-2025 Iron saturation [Mass fraction] 23.0 % 13-59 [facility] White blood cell (WBC) count Ordered By: Dominick Schaffer on 03-21-2025 WBC (Bld) [#/Vol] 3.1 10*3/uL Low 4.4-11.0 [facility] [id number] 03-07-2025 [id number] HNO ID: [id number] Author: ZULEIKA SANTOS RN Service: ? Author Type: Registered Nurse Type: [id number] Filed: 03/07/2025 12:28 Note Text: The patient received a copy of Colonoscopy discharge instructions that contain information for how to contact the physician who performed the procedure and when to seek medical care. Normal [facility] Colonoscopyon 03-07-2025 Colonoscopy [facility] Gastrointestinal Endoscopy Patient Name: Madelyn Hayes Procedure Date: 03/07/2025 11:42 AM Date of : 1960 Admit Type: Outpatient Age: 65 Gender: Female Note Status: Finalized Procedure: Colonoscopy Indications: Screening in patient at increased risk: Colorectal cancer in father 60 or older Providers: Juan Robb MD Patient Profile: This is a 65 year old female. Refer to note in patient chart for documentation of history and physical. Last Colonoscopy: 2019. Referring Physician: Courtney Deras (Referring MD) Medicines: Fentanyl 100 micrograms IV, Midazolam 7 mg IV, Diphenhydramine 50 mg IV Complications: No immediate complications. Estimated blood loss: None. Requesting Provider: Procedure: Pre-Anesthesia Assessment: - Prior to the procedure, a History and Physical was performed, and patient medications and allergies were reviewed. The patient's tolerance of previous anesthesia was also reviewed. The risks and benefits of the procedure and the sedation options and risks were discussed with the patient. All questions were answered, and informed consent was obtained. Prior Anticoagulants: The patient has taken no anticoagulant or antiplatelet agents. ASA Grade Assessment: II - A patient with mild systemic disease. After reviewing the risks and benefits, the patient was deemed in satisfactory condition to undergo the procedure. After I obtained informed consent, the scope was passed under direct vision. Throughout the procedure, the patient's blood pressure, pulse, and oxygen saturations were monitored continuously. The Colonoscope was introduced through the anus and advanced to 3 cm into the ileum. The colonoscopy was performed without difficulty. The patient tolerated the procedure well. The quality of the bowel preparation was good. The terminal ileum, ileocecal valve, appendiceal orifice, and rectum were photographed. Moderate Sedation: The administration of moderate sedation was initiated at 11:49. Moderate (conscious) sedation was personally administered by the endoscopist. The following parameters were monitored: oxygen saturation, heart rate, blood pressure, respiratory rate, EKG, adequacy of pulmonary ventilation, and response to care. Total physician intraservice time was 16 minutes. Findings: The perianal and digital rectal examinations were normal. The terminal ileum appeared normal. Non-bleeding internal hemorrhoids were found during retroflexion. The hemorrhoids were mild and small. The exam was otherwise without abnormality. Impression: - The examined portion of the ileum was normal. - Non-bleeding internal hemorrhoids. - The examination was otherwise normal. - No specimens collected. Recommendation: - Patient has a contact number available for emergencies. The signs and symptoms of potential delayed complications were discussed with the patient. Return to normal activities tomorrow. Written discharge instructions were provided to the patient. - Resume previous diet. - Continue present medications. - Repeat colonoscopy in 5 years for surveillance. - Return to primary care physician PRN. Procedure Code(s): --- Professional --- 68844, Colonoscopy, flexible; diagnostic, including collection of specimen(s) by brushing or washing, when performed (separate procedure) G0500, Moderate sedation services provided by the same physician or other qualified health healthcare analyst performing a gastrointestinal endoscopic service that sedation supports, requiring the presence of an independent trained observer to assist in the monitoring of the patient's level of consciousness and physiological status; initial 15 minutes of intra-service time; patient age 5 years or older (additional time may be reported with 95462, as appropriate) Diagnosis Code(s): --- Professional --- Z12.11, Encounter for screening for malignant neoplasm of colon Z80.0, Family history of malignant neoplasm of digestive organs K64.8, Other hemorrhoids CPT copyright 2020 [employer]. All rights reserved. The codes documented in this report are preliminary and upon sports activities foul judge review may be revised to meet current compliance requirements. Attending Participation: I personally performed the entire procedure. Scope In: 11:53:10 AM Scope Out: 12:05:53 PM MD Juan De La Cruz MD 03/07/2025 12:09:17 PM This report has been signed electronically by Juan Robb MD Number of Addenda: 0 Note Initiated On: 03/07/2025 11:42 AM Estimated Blood Loss: Estimated blood loss: none. Normal [facility] Colonoscopy Study observatio non 03-07-2025 [facility] Gastrointestinal Endoscopy Patient Name: Madelyn Hayes Procedure Date: 03/07/2025 11:42 AM Date of : 1960 Admit Type: Outpatient Age: 65 Gender: Female Note Status: Finalized Procedure: Colonoscopy Indications: Screening in patient at increased risk: Colorectal cancer in father 60 or older Providers: Juan Robb MD Patient Profile: This is a 65 year old female. Refer to note in patient chart for documentation of history and physical. Last Colonoscopy: 2019. Referring Physician: Courtney Deras (Referring ) Medicines: Fentanyl 100 micrograms IV, Midazolam 7 mg IV, Diphenhydramine 50 mg IV Complications: No immediate complications. Estimated blood loss: None. Requesting Provider: Procedure: Pre-Anesthesia Assessment: - Prior to the procedure, a History and Physical was performed, and patient medications and allergies were reviewed. The patient's tolerance of previous anesthesia was also reviewed. The risks and benefits of the procedure and the sedation options and risks were discussed with the patient. All questions were answered, and informed consent was obtained. Prior Anticoagulants: The patient has taken no anticoagulant or antiplatelet agents. ASA Grade Assessment: II - A patient with mild systemic disease. After reviewing the risks and benefits, the patient was deemed in satisfactory condition to undergo the procedure. After I obtained informed consent, the scope was passed under direct vision. Throughout the procedure, the patient's blood pressure, pulse, and oxygen saturations were monitored continuously. The Colonoscope was introduced through the anus and advanced to 3 cm into the ileum. The colonoscopy was performed without difficulty. The patient tolerated the procedure well. The quality of the bowel preparation was good. The terminal ileum, ileocecal valve, appendiceal orifice, and rectum were photographed. Moderate Sedation: The administration of moderate sedation was initiated at 11:49. Moderate (conscious) sedation was personally administered by the endoscopist. The following parameters were monitored: oxygen saturation, heart rate, blood pressure, respiratory rate, EKG, adequacy of pulmonary ventilation, and response to care. Total physician intraservice time was 16 minutes. Findings: The perianal and digital rectal examinations were normal. The terminal ileum appeared normal. Non-bleeding internal hemorrhoids were found during retroflexion. The hemorrhoids were mild and small. The exam was otherwise without abnormality. Impression: - The examined portion of the ileum was normal. - Non-bleeding internal hemorrhoids. - The examination was otherwise normal. - No specimens collected. Recommendation: - Patient has a contact number available for emergencies. The signs and symptoms of potential delayed complications were discussed with the patient. Return to normal activities tomorrow. Written discharge instructions were provided to the patient. - Resume previous diet. - Continue present medications. - Repeat colonoscopy in 5 years for surveillance. - Return to primary care physician PRN. Procedure Code(s): --- Professional --- 44923, Colonoscopy, flexible; diagnostic, including collection of specimen(s) by brushing or washing, when performed (separate procedure) G0500, Moderate sedation services provided by the same physician or other qualified health healthcare analyst performing a gastrointestinal endoscopic service that sedation supports, requiring the presence of an independent trained observer to assist in the monitoring of the patient's level of c (more content not included)... PROVATION [facility] Radiology Study observation (narrative) [facility] HISTORY PHYSICALon HISTORY PHYSICAL HNO ID: [id number] Author: JUAN ROBB MD Service: General Surgery Author Type: Physician Type: H&P Filed: 03/07/2025 11:48 Note Text: HISTORY AND PHYSICAL Madelyn Hayes : 1960 REFERRING PHYSICIAN: No referring provider defined for this encounter. CHIEF COMPLAINT: Patient presents with: Consult: Last colonoscopy 2017, denies symptoms. Hgb is low HPI: Madelyn is a 65 year old female referred for endoscopy. Madelyn notes due for screening colonoscopy-family hx of colon cancer in father. Madelyn denies abdominal pain. Madelyn denies diarrhea. Madelyn denies constipation. Madelyn notes a change in bowel habits. -sometimes stool is narrow -intermittent x the last couple of years Madelyn denies melena. Madelyn denies bright red blood per rectum. Madelyn denies hemorrhoids. Madelyn denies heartburn. Madelyn denies dysphagia. Madelyn denies a history of ulcers/ peptic ulcer disease. Madelyn has undergone prior endoscopy. Last colonoscopy was 04/[address] Robb at [facility]. Sedation: MAC Impression: - The examination was otherwise normal on direct and retroflexion views. - No specimens collected. CURRENT MEDICATIONS Current Outpatient Medications Medication Sig pramipexole (MIRAPEX) 0.5 mg tablet Take 0.5 mg by mouth daily at bedtime. ferrous sulfate 325 mg (65 mg iron) tablet Take 325 mg by mouth two times a day. estradiol (ESTRACE) 0.01 % (0.1 mg/gram) vaginal cream Use vaginally two times a week. Estradiol (VIVELLE-DOT) 0.0375 mg/24 hr Apply 1 Patch as directed twice a week. TWICE WEEKLY valacyclovir (VALTREX) 1 g ORAL Tab Take 1 g by mouth as needed. MULTIVITAMIN TAB Take one(1) tablet daily. No current facility-administered medications for this visit. ALLERGIES: Ampicillin PAST MEDICAL HISTORY PAST MEDICAL HISTORY Diagnosis Date Breast mass 08/15/2002 Rt breast-- benign Family history of colon cancer History of iron deficiency History of restless legs syndrome Iron deficiency anemia 02/14/2025 Mixed stress and urge incontinence Symptomatic menopausal or female climacteric states Thyroid nodule Urge incontinence 2 minipads a day Urgency of urination PAST SURGICAL HISTORY PAST SURGICAL HISTORY Procedure Laterality Date COLONOSCOPY FLX DX W/COLLJ SPEC WHEN PFRMD 02/21/2012 Return in 5 years (-2016) COLONOSCOPY SCREENING N/A 2018 HYSTEROSCOPY ENDOMETRIAL ABLATION 11/22/2000 PAST SURGICAL HISTORY OF 08/15/2002 Rt breast stereo benign RPR 1ST INGUN HRNA FULL TERM INFT <6 MO RDC right inguinal VAGINAL HYSTERECTOMY UTERUS 250 GM/< 02/12/2003 [facility] PROCEDURE Left 11/23/2024 Dr. Rodríguez, left middle FAMILY HISTORY FAMILY HISTORY Problem Relation Age of Onset Osteoporosis Mother polymalasia rheumatica, / with paralysis of stomach Osteoporosis Sister Osteoporosis Sister Heart Father skin cancer Colon Cancer Father Breast Cancer Paternal Grandmother in her 70s other (osteoporis [Other]) Sister 55 other (brain tumor [Other]) Sister SOCIAL HISTORY Social History Tobacco Use Smoking status: Never Smokeless tobacco: Never Substance Use Topics Alcohol use: Yes Comment: Occasionally/rarely Drug use: No REVIEW OF SYMPTOMS: REVIEW OF SYSTEMS: General: The patient denies fatigue, denies weight loss, denies weight gain, + feeling hot, and feelings of cold. Eyes: The patient denies glaucoma, denies eye injury/surgery, + glasses or contacts. Ear/Nose/Throat: The patient denies allergies, denies hayfever, denies ear infections, and denies bloody noses. Cardiovascular: The patient denies chest pain, denies heart disease, denies high blood pressure, denies high cholesterol, and denies poor circulation. Respiratory: The patient denies tuberculosis, denies pneumonia, denies frequent cough, denies shortness of breath, and denies coughing up blood. Gastrointestinal: The patient denies difficulty swallowing, denies acid reflux, denies ulcers, denies jaundice/hepatitis, denies gallbladder problems, denies vomiting, denies black or tarry stools, denies hemorrhoids, denies bleeding from rectum, denies diverticulitis, denies constipation, denies diarrhea, denies loss of stool control, and + hernias. Kidney/Bladder: The patient denies kidney stones, denies urine infections, and denies bloody urine. Skin: The patient + a history of skin cancer, denies bleeding/changing moles, and denies a history of skin rash. Neurologic: The patient denies a history of epilepsy/convulsions, + headaches, denies head/spinal injuries, and denies stroke/TIA. Psychiatric: The patient denies psychiatric medications, denies depression, and denies voices. Endocrine: The patient denies thyroid disorders, denies diabetes, and denies hormonal problems. Hematologic: The patient denies a history of bruising, denies bleeding, and + anemia. Infections: The patient denies a history of measles and mumps, denies rheum (more content not included)... [facility] CNOVon 02-21-2025 CNOV Office Visit (GENSWS ) MADELYN HAYES ([id number]) 1960 F Date Time Provider Department 02/21/25 8:30 AM [facility] During your visit today, we recorded the following information about you: Pulse Blood pressure Weight Height 88/minute 123/71 70.6 kg 1.702 m Courtney Deras APRN.CNP 02/21/2025 9:13 AM Signed HISTORY AND PHYSICAL Madelyn Bobbyanel : 1960 REFERRING PHYSICIAN: No referring provider defined for this encounter. CHIEF COMPLAINT: Patient presents with: Consult: Last colonoscopy 2017, denies symptoms. Hgb is low HPI: Madelyn is a 65 year old female referred for endoscopy. Madelyn notes due for screening colonoscopy-family hx of colon cancer in father. Madelyn denies abdominal pain. Madelyn denies diarrhea. Madelyn denies constipation. Madelyn notes a change in bowel habits. -sometimes stool is narrow -intermittent x the last couple of years Madelyn denies melena. Madelyn denies bright red blood per rectum. Madelyn denies hemorrhoids. Madelyn denies heartburn. Madelyn denies dysphagia. Madelyn denies a history of ulcers/ peptic ulcer disease. Madelyn has undergone prior endoscopy. Last colonoscopy was 04/[address] Robb at [facility]. Sedation: MAC Impression: - The examination was otherwise normal on direct and retroflexion views. - No specimens collected. Current Outpatient Medications Medication Sig pramipexole (MIRAPEX) 0.5 mg tablet Take 0.5 mg by mouth daily at bedtime. ferrous sulfate 325 mg (65 mg iron) tablet Take 325 mg by mouth two times a day. estradiol (ESTRACE) 0.01 % (0.1 mg/gram) vaginal cream Use vaginally two times a week. Estradiol (VIVELLE-DOT) 0.0375 mg/24 hr Apply 1 Patch as directed twice a week. TWICE WEEKLY valacyclovir (VALTREX) 1 g ORAL Tab Take 1 g by mouth as needed. MULTIVITAMIN TAB Take one(1) tablet daily. No current facility-administered medications for this visit. ALLERGIES: Ampicillin PAST MEDICAL HISTORY Diagnosis Date Breast mass 08/15/2002 Rt breast-- benign Family history of colon cancer History of iron deficiency History of restless legs syndrome Iron deficiency anemia 02/14/2025 Mixed stress and urge incontinence Symptomatic menopausal or female climacteric states Thyroid nodule Urge incontinence 2 minipads a day Urgency of urination PAST SURGICAL HISTORY Procedure Laterality Date COLONOSCOPY FLX DX W/COLLJ SPEC WHEN PFRMD 02/21/2012 Return in 5 years (-2016) COLONOSCOPY SCREENING N/A 2018 HYSTEROSCOPY ENDOMETRIAL ABLATION 11/22/2000 PAST SURGICAL HISTORY OF 08/15/2002 Rt breast stereo benign RPR 1ST INGUN HRNA FULL TERM INFT <6 MO RDC right inguinal VAGINAL HYSTERECTOMY UTERUS 250 GM/< 02/12/2003 [facility] PROCEDURE Left 11/23/2024 Dr. Rodríguez, left middle FAMILY HISTORY Problem Relation Age of Onset Osteoporosis Mother polymalasia rheumatica, / with paralysis of stomach Osteoporosis Sister Osteoporosis Sister Heart Father skin cancer Colon Cancer Father Breast Cancer Paternal Grandmother in her 70s other (osteoporis [Other]) Sister 55 other (brain tumor [Other]) Sister Social History Tobacco Use Smoking status: Never Smokeless tobacco: Never Substance Use Topics Alcohol use: Yes Comment: Occasionally/rarely Drug use: No REVIEW OF SYMPTOMS: REVIEW OF SYSTEMS: General: The patient denies fatigue, denies weight loss, denies weight gain, + feeling hot, and feelings of cold. Eyes: The patient denies glaucoma, denies eye injury/surgery, + glasses or contacts. Ear/Nose/Throat: The patient denies allergies, denies hayfever, denies ear infections, and denies bloody noses. Cardiovascular: The patient denies chest pain, denies heart disease, denies high blood pressure, denies high cholesterol, and denies poor circulation. Respiratory: The patient denies tuberculosis, denies pneumonia, denies frequent cough, denies shortness of breath, and denies coughing up blood. Gastrointestinal: The patient denies difficulty swallowing, denies acid reflux, denies ulcers, denies jaundice/hepatitis, denies gallbladder problems, denies vomiting, denies black or tarry stools, denies hemorrhoids, denies bleeding from rectum, denies diverticulitis, denies constipation, denies diarrhea, denies loss of stool control, and + hernias. Kidney/Bladder: The patient denies kidney stones, denies urine infections, and denies bloody urine. Skin: The patient + a history of skin cancer, denies bleeding/changing moles, and denies a history of skin rash. Neurologic: The patient denies a history of epilepsy/convulsions, + headaches, denies head/spinal injuries, and denies stroke/TIA. Psychiatric: The patient denies psychiatric medications, denies depression, and denies voices. Endocrine: The patient denies thyroid disorders, denies diabetes, and denies hormonal problems. (more content not included)... [facility] Thyroidon 02-20-2025 Thyroid [facility] [address] [place] [address] Thyroid MR#: [id number] Acct: [id number] Name: MADELYN HAYES CHAD Rep #: [id number] : 1960 F 65 From: Shauna broderick MD PCP: Dr. Dominick Schaffer MD Status: REG CLI Study: Thyroid Date of Exam: 02/20/25 Exam# [id number] Ordering Dr: Dominick Schaffer MD PROCEDURE: THYROID 02/20/2025 REASON FOR EXAM: NODULE TECHNIQUE: THYROID COMPARISON: None FINDINGS: Right thyroid lobe size: 4.9 x 1.4 x 1.8 cm Left thyroid lobe size: 4.5 x 1.5 x 1.7 cm Isthmus: 0.16 cm Background parenchymal echotexture is homogeneous. Nodules: No obvious solid or cystic nodules. US/Thyroid IMPRESSION: Unremarkable study. No definite nodules. Reading Location: [place] [address] CC: Dr. Dominick Schaffer MD Finger [place]aver: Signed Normal [facility] Thyroid Antibodieson 025 TG AB < 1.0 Normal 0.0-0.9 [facility] Comment on above: Result Comment: Thyr oglobulin Antibody measured by Chris Oneida Methodology It should be noted that the presence of thyroglobulin antibodies may not be pathogenic nor diagnostic, especially at very low levels. The assay hospice rn has found that four percent of individuals without evidence of thyroid disease or autoimmunity will have positive TgAb levels up to 4 IU/mL. Performed at: [address] [id number] [employer] Manager: Donte Sutherland PhD, Phone: [phone] Performed By: #### L 503.6030, L500.4050, L503.0106, L503.6550, L506.0200, L3300.6750, L100.0100 #### [facility] [address] [place], [place], [id number] THYR PEROX AB 19 IU/mL Normal 0-34 [facility] Comment on above: Performed By: #### L 503.6030, L500.4050, L503.0106, L503.6550, L506.0200, L3300.6750, L100.0100 #### [facility] [address] [place], [place], [id number] Absolute lymphocyte countOrd ered By: Dominick Schaffer on 02-14-2025 Lymphocytes Auto (Unsp spec) [#/Vol] 1.15 10*3/uL 0.83-4.51 [facility] Absolute neutrophil countOrd ered By: Dominick Schaffer on 02-14-2025 Neutrophils (Bld) [#/Vol] 2.3 10*3/uL 2.0-7.7 [facility] Anion gap in Serum or Plasma Ordered By: Dominick Schaffer on 02-14-2025 Anion gap [Moles/Vol] 11 mmol/L 5- [facility] Automated lymphocyte count a s percentage of total leukocytesOrdered By: Dominick Schaffer on 02-14-2025 Lymphocytes/100 WBC Auto (Unsp spec) 29.6 % 19- [facility] BUN/creatinine ratioOrdered By: Dominick Schaffer on 02-14-2025 Urea nitrogen/Creatinine [Mass ratio] 23.4 mg/mg High 10-20 [facility] Basophil percentageOrdered B y: Dominick Schaffer on 02-14-2025 Basophils/100 WBC (Bld) 0.8 % 0-1 [facility] Bilirubin, totalOrdered By: Dominick Schaffer on 02-14-2025 Bilirubin [Mass/Vol] 0.72 mg/dL 0.00-1.30 [facility] CBC W/Diff, Automatedon Absolute Lymph 1.15 X10 3/uL Normal 0.83-4.51 [facility] Comment on above: Performed By: #### L 503.6030, L500.4050, L503.0106, L503.6550, L506.0200, L3300.6750, L100.0100 #### [facility] [address] [facility] [place], [address] Absolute Neut 2.3 X10 3/uL Normal 2.0-7.7 [facility] Comment on above: Performed By: #### L 503.6030, L500.4050, L503.0106, L503.6550, L506.0200, L3300.6750, L100.0100 #### [facility] [address] [place], [address] Basophils/100 WBC (Bld) 0.8 % Normal 0-1 [facility] Comment on above: Performed By: #### L 503.6030, L500.4050, L503.0106, L503.6550, L506.0200, L3300.6750, L100.0100 #### [facility] [address] [place], [address] Eosinophils/100 WBC (Bld) 2.1 % Normal 0-5 [facility] Comment on above: Performed By: #### L 503.6030, L500.4050, L503.0106, L503.6550, L506.0200, L3300.6750, L100.0100 #### [facility] [address] [place], [address] Erythrocyte distribution width (RBC) [Ratio] 13.9 % Normal 11.6-14.6 [facility] Comment on above: Performed By: #### L 503.6030, L500.4050, L503.0106, L503.6550, L506.0200, L3300.6750, L100.0100 #### [facility] [address] [place], [address] Hematocrit (Bld) [Volume fraction] 34.6 % Low 37-47 [facility] Comment on above: Performed By: #### L 503.6030, L500.4050, L503.0106, L503.6550, L506.0200, L3300.6750, L100.0100 #### [facility] [address] [place], [address] Hemoglobin (Bld) [Mass/Vol] 10.9 g/dL Low 12.0-15.0 [facility] Comment on above: Performed By: #### L 503.6030, L500.4050, L503.0106, L503.6550, L506.0200, L3300.6750, L100.0100 #### [facility] [address] [place], [address] IG% 0.300 Normal 0.0-0.9 [facility] Comment on above: Result Comment: IG% - Immature Granulocytes (promyelocytes, myelocytes and metamyelocytes) > 1% indicates that a LEFT SHIFT is Present. Performed By: #### L 503.6030, L500.4050, L503.0106, L503.6550, L506.0200, L3300.6750, L100.0100 #### [facility] [address] [place], [address] Lymphocytes/100 WBC (Bld) 29.6 % Normal 19-41 [facility] Comment on above: Performed By: #### L 503.6030, L500.4050, L503.0106, L503.6550, L506.0200, L3300.6750, L100.0100 #### [facility] [address] [place], [address] MCH (RBC) [Entitic mass] 26.8 pg Low 27.0-32.0 [facility] Comment on above: Performed By: #### L 503.6030, L500.4050, L503.0106, L503.6550, L506.0200, L3300.6750, L100.0100 #### [facility] [address], [address] MCHC (RBC) [Mass/Vol] 31.5 g/dL Low 32-36 [facility] Comment on above: Performed By: #### L 503.6030, L500.4050, L503.0106, L503.6550, L506.0200, L3300.6750, L100.0100 #### [facility] [address] [place], [address] MCV (RBC) [Entitic vol] 85.0 fL Normal 81-99 [facility] Comment on above: Performed By: #### L 503.6030, L500.4050, L503.0106, L503.6550, L506.0200, L3300.6750, L100.0100 #### [facility] [address] [place], [address] Monocytes/100 WBC (Bld) 9.0 % Normal 0-10 [facility] Comment on above: Performed By: #### L 503.6030, L500.4050, L503.0106, L503.6550, L506.0200, L3300.6750, L100.0100 #### [facility] [address] [place], [address] Neutrophils/100 WBC (Bld) 58.2 % Normal 47-70 [facility] Comment on above: Performed By: #### L 503.6030, L500.4050, L503.0106, L503.6550, L506.0200, L3300.6750, L100.0100 #### [facility] [address] [place], [address] Nucleated RBC (Bld) [#/Vol] 0 10*3/uL Normal 0-5 [facility] Comment on above: Performed By: #### L 503.6030, L500.4050, L503.0106, L503.6550, L506.0200, L3300.6750, L100.0100 #### [facility] [address] [place], [address] Platelet mean volume (Bld) [Entitic vol] 9.8 fL Normal 6.2-12.0 [facility] Comment on above: Performed By: #### L 503.6030, L500.4050, L503.0106, L503.6550, L506.0200, L3300.6750, L100.0100 #### [facility] [address] [place], [address] Platelets (Bld) [#/Vol] 300 10*3/uL Normal 150-450 [facility] Comment on above: Performed By: #### L 503.6030, L500.4050, L503.0106, L503.6550, L506.0200, L3300.6750, L100.0100 #### [facility] [address] [place], [address] RBC (Bld) [#/Vol] 4.07 10*6/uL Low 4.2-5.4 [facility] Comment on above: Performed By: #### L 503.6030, L500.4050, L503.0106, L503.6550, L506.0200, L3300.6750, L100.0100 #### [facility] [address] [place], [address] RDW SD 42.9 fl Normal 35.1-43.9 [facility] Comment on above: Performed By: #### L 503.6030, L500.4050, L503.0106, L503.6550, L506.0200, L3300.6750, L100.0100 #### [facility] [address] [place], [address] WBC (Bld) [#/Vol] 3.9 10*3/uL Low 4.4-11.0 [facility] Comment on above: Performed By: #### L 503.6030, L500.4050, L503.0106, L503.6550, L506.0200, L3300.6750, L100.0100 #### [facility] [address] [place], [address] Carbon dioxide, total [Moles /volume] in Central venous bloodOrdered By: Dominick Schaffer on 02-14-2025 CO2 [Moles/Vol] 23.8 mmol/L 21.0-32.0 [facility] Chloride assayOrdered By: Breana Schaffer on 02-14-2025 Chloride [Moles/Vol] 104 mmol/L 98-108 [facility] Comprehensive Metabolic Prof ilon 02-14-2025 Albumin [Mass/Vol] 4.5 g/dL Normal 3.4-4.8 [facility] Comment on above: Order Comment: Order Date: 02/14/25 Order Info: 3016-3 - TSH Order Info: 3024-7 - T4F Performed By: #### L 503.6030, L500.4050, L503.0106, L503.6550, L506.0200, L3300.6750, L100.0100 #### [facility] [address] [place], [address] Albumin/Globulin [Mass ratio] 1.6 {ratio} Normal 0.9-2.4 [facility] Comment on above: Order Comment: Order Date: 02/14/25 Order Info: 3016-3 - TSH Order Info: 3027 - T4F Performed By: #### L 503.6030, L500.4050, L503.0106, L503.6550, L506.0200, L3300.6750, L100.0100 #### [facility] [address] [place], [address] ALK PHOS 44 U/L Normal 35-104 [facility] Comment on above: Order Comment: Order Date: 02/14/25 Order Info: 3016-3 - TSH Order Info: 3024-7 - T4F Performed By: #### L 503.6030, L500.4050, L503.0106, L503.6550, L506.0200, L3300.6750, L100.0100 #### [facility] [address] [place], [address] ALT [Catalytic activity/Vol] 25 U/L Normal <=34 [facility] Comment on above: Order Comment: Order Date: 02/14/25 Order Info: 3016-3 - TSH Order Info: 3024-7 - T4F Performed By: #### L 503.6030, L500.4050, L503.0106, L503.6550, L506.0200, L3300.6750, L100.0100 #### [facility] [address] [place], [address] AST [Catalytic activity/Vol] 30 U/L Normal <=31 [facility] Comment on above: Order Comment: Order Date: 02/14/25 Order Info: 3016-3 - TSH Order Info: 3024-7 - T4F Performed By: #### L 503.6030, L500.4050, L503.0106, L503.6550, L506.0200, L3300.6750, L100.0100 #### [facility] [address] [place], [address] Bilirubin [Mass/Vol] 0.72 mg/dL Normal 0.00-1.30 [facility] Comment on above: Order Comment: Order Date: 02/14/25 Order Info: 3016-3 - TSH Order Info: 3024-7 - T4F Performed By: #### L 503.6030, L500.4050, L503.0106, L503.6550, L506.0200, L3300.6750, L100.0100 #### [facility] [address] [place], [address] BUN/CRE 23.4 RATIO High 10-20 [facility] Comment on above: Order Comment: Order Date: 02/14/25 Order Info: 3016-3 - TSH Order Info: 3024-7 - T4F Performed By: #### L 503.6030, L500.4050, L503.0106, L503.6550, L506.0200, L3300.6750, L100.0100 #### [facility] [address] [place], [address] Calcium [Mass/Vol] 9.0 mg/dL Normal 7.6-11.0 [facility] Comment on above: Order Comment: Order Date: 02/14/25 Order Info: 3016-3 - TSH Order Info: 3024-7 - T4F Performed By: #### L 503.6030, L500.4050, L503.0106, L503.6550, L506.0200, L3300.6750, L100.0100 #### [facility] [address] [place], [address] Chloride [Moles/Vol] 104 mmol/L Normal 98-108 [facility] Comment on above: Order Comment: Order Date: 02/14/25 Order Info: 3016-3 - TSH Order Info: 3024-7 - T4F Performed By: #### L 503.6030, L500.4050, L503.0106, L503.6550, L506.0200, L3300.6750, L100.0100 #### [facility] [address] [place], [address] CO2 [Moles/Vol] 23.8 mmol/L Normal 21.0-32.0 [facility] Comment on above: Order Comment: Order Date: 02/14/25 Order Info: 3016-3 - TSH Order Info: 3024-7 - T4F Performed By: #### L 503.6030, L500.4050, L503.0106, L503.6550, L506.0200, L3300.6750, L100.0100 #### [facility] [address] [place], [address] Creatinine [Mass/Vol] 0.65 mg/dL Low 0.70-1.20 [facility] Comment on above: Order Comment: Order Date: 02/14/25 Order Info: 3016-3 - TSH Order Info: 3024-7 - T4F Performed By: #### L 503.6030, L500.4050, L503.0106, L503.6550, L506.0200, L3300.6750, L100.0100 #### [facility] [address] [place], [address] GAP 11 Normal 5-15 [facility] Comment on above: Order Comment: Order Date: 02/14/25 Order Info: 3016-3 - TSH Order Info: 3024-7 - T4F Performed By: #### L 503.6030, L500.4050, L503.0106, L503.6550, L506.0200, L3300.6750, L100.0100 #### [facility] [address] [place], [address] GFR/1.73 sq M.predicted among non-blacks MDRD (S/P/Bld) [Vol rate/Area] 98 mL/min/{1.73_m2} Normal >60 [facility] Comment on above: Order Comment: Order Date: 02/14/25 Order Info: 3016-3 - TSH Order Info: 3024-7 - T4F Result Comment: mL/m in/1.73m2 CKD-EPI Creatinine Equation (2020) Performed By: #### L 503.6030, L500.4050, L503.0106, L503.6550, L506.0200, L3300.6750, L100.0100 #### [facility] [address] [place], [address] Globulin (S) [Mass/Vol] 2.8 g/dL Normal 2.2-4.2 [facility] Comment on above: Order Comment: Order Date: 02/14/25 Order Info: 3016-3 - TSH Order Info: 3024-7 - T4F Performed By: #### L 503.6030, L500.4050, L503.0106, L503.6550, L506.0200, L3300.6750, L100.0100 #### [facility] [address] [place], [address] Glucose [Mass/Vol] 89 mg/dL Normal 70-99 [facility] Comment on above: Order Comment: Order Date: 02/14/25 Order Info: 3016-3 - TSH Order Info: 3024-7 - T4F Performed By: #### L 503.6030, L500.4050, L503.0106, L503.6550, L506.0200, L3300.6750, L100.0100 #### [facility] [address] [place], [address] Potassium [Moles/Vol] 4.4 mmol/L Normal 3.3-5.1 [facility] Comment on above: Order Comment: Order Date: 02/14/25 Order Info: 3016-3 - TSH Order Info: 3024-7 - T4F Performed By: #### L 503.6030, L500.4050, L503.0106, L503.6550, L506.0200, L3300.6750, L100.0100 #### [facility] [address] [place], [address] Sodium [Moles/Vol] 139 mmol/L Normal 133-145 [facility] Comment on above: Order Comment: Order Date: 02/14/25 Order Info: 3016-3 - TSH Order Info: 30247 - T4F Performed By: #### L 503.6030, L500.4050, L503.0106, L503.6550, L506.0200, L3300.6750, L100.0100 #### [facility] [address] [place], [address] T PROT 7.3 g/dL Normal 5.9-8.4 [facility] Comment on above: Order Comment: Order Date: 02/14/25 Order Info: 3016-3 - TSH Order Info: 3024-7 - T4F Performed By: #### L 503.6030, L500.4050, L503.0106, L503.6550, L506.0200, L3300.6750, L100.0100 #### [facility] [address] [place], [address] Urea nitrogen [Mass/Vol] 15 mg/dL Normal 4-19 [facility] Comment on above: Order Comment: Order Date: 02/14/25 Order Info: 3016-3 - TSH Order Info: 3024-7 - T4F Performed By: #### L 503.6030, L500.4050, L503.0106, L503.6550, L506.0200, L3300.6750, L100.0100 #### [facility] [address] [place], [place], [address] Eosinophil percentageOrdered By: Dominick Schaffer on 02-14-2025 Eosinophils/100 WBC (Bld) 2.1 % 0-5 [facility] Erythrocyte distribution wid th ratioOrdered By: Dominick Schaffer on 02-14-2025 Erythrocyte distribution width (RBC) [Ratio] 13.9 % 11.6-14.6 [facility] Erythrocyte distribution wid th standard deviationOrdered By: Dominick Schaffer on 02-14-2025 Erythrocyte distribution width (RBC) [Ratio] 42.9 fl 35.1-43.9 [facility] Ferritinon 02-14-2025 Ferritin [Mass/Vol] 11 ng/mL Low 22-378 [facility] Comment on above: Order Comment: Order Date: 02/14/25 Order Info: 3016-3 - TSH Order Info: 3024-7 - T4F Performed By: #### L 503.6030, L500.4050, L503.0106, L503.6550, L506.0200, L3300.6750, L100.0100 #### [facility] [address] [facility]. [place], [place], [id number] Folate [Moles/volume] in Ser um or PlasmaOrdered By: Dominick Schaffer on 02-14-2025 Folate [Moles/Vol] 19.50 ng/mL 4.60-34.80 [facility] Folates,Serum (Folic Acid)on 02-14-2025 FOLATES,SERUM 19.50 ng/mL Normal 4.60-34.80 [facility] Comment on above: Order Comment: N Performed By: #### L 503.6030, L500.4050, L503.0106, L503.6550, L506.0200, L3300.6750, L100.0100 #### [facility] [address] [place], [place], [id number] Glomerular filtration rate ( GFR) estimation/1.73 sq m using serum, plasma, or whole bOrdered By: Dominick Schaffer on 02-14-2025 GFR/1.73 sq M.predicted among non-blacks MDRD (S/P/Bld) [Vol rate/Area] 98 mL/min/{1.73_m2} >60 [facility] Comment on above: mL/min/1.73m2 CKD-EP I Creatinine Equation (2020) Hematocrit Auto (Bld) [Volum e fraction]Ordered By: Dominick Schaffer on 02-14-2025 Hematocrit (Bld) [Volume fraction] 34.6 % Low 37-47 [facility] Hemoglobin measurementOrdere d By: Dominick Schaffer on 02-14-2025 Hemoglobin (Bld) [Mass/Vol] 10.9 g/dL Low 12.0-15.0 [facility] Immature granulocytes/100 WB C Auto (Bld)Ordered By: Dominick Schaffer on 02-14-2025 Immature granulocytes/100 WBC (Bld) 0.300 % 0.0-0.9 [facility] Comment on above: IG% - Immature Granu locytes (promyelocytes, myelocytes and metamyelocytes) > 1% indicates that a LEFT SHIFT is Present. Iron measurement (mass/mass) Ordered By: Dominick Schaffer on 02-14-2025 Iron (Unsp spec) [Mass/Mass] 50 ug/dL 50-170 [facility] Iron+Iron Binding Capacityon 02-14-2025 Iron [Mass/Vol] 50 ug/dL Normal 50-170 [facility] Comment on above: Order Comment: Order Date: 02/14/25 Order Info: 3016-3 - TSH Order Info: 3024-7 - T4F Performed By: #### L 503.6030, L500.4050, L503.0106, L503.6550, L506.0200, L3300.6750, L100.0100 #### [facility] [address] [place], [place], [id number] IRON SATURATION 12.0 Low 13-59 [facility] Comment on above: Order Comment: Order Date: 02/14/25 Order Info: 3016-3 - TSH Order Info: 3024-7 - T4F Performed By: #### L 503.6030, L500.4050, L503.0106, L503.6550, L506.0200, L3300.6750, L100.0100 #### [facility] [address] [place], [address] TIBC 421 ug/dL Normal 250-450 [facility] Comment on above: Order Comment: Order Date: 02/14/25 Order Info: 3016-3 - TSH Order Info: 302-7 - T4F Performed By: #### L 503.6030, L500.4050, L503.0106, L503.6550, L506.0200, L3300.6750, L100.0100 #### [facility] [address] [place], [address] UIBC 371 ug/dL Normal 228-428 [facility] Comment on above: Order Comment: Order Date: 02/14/25 Order Info: 3016-3 - TSH Order Info: 3024-7 - T4F Performed By: #### L 503.6030, L500.4050, L503.0106, L503.6550, L506.0200, L3300.6750, L100.0100 #### [facility] [address] [place], [place], [address] Laboratory - Chemistry and C hemistry - challengeOrdered By: Dominick Schaffer on 02-14-2025 AST [Catalytic activity/Vol] 30 U/L <32 [facility] MCV (mean corpuscular volume ) determinationOrdered By: Dominick Schaffer on 02-14-2025 MCV (RBC) [Entitic vol] 85.0 fL 81-99 [facility] Mean corpuscular hemoglobin (MCH) determinationOrdered By: Dominick Schaffer on 02-14-2025 MCH (RBC) [Entitic mass] 26.8 pg Low 27.0-32.0 [facility] Mean corpuscular hemoglobin concentration (MCHC) determinationOrdered By: Dominick Schaffer on 02-14-2025 MCHC (RBC) [Mass/Vol] 31.5 g/dL Low 32-36 [facility] Mean platelet volume determi nationOrdered By: Dominick Schaffer on 02-14-2025 Platelet mean volume (Bld) [Entitic vol] 9.8 fL 6.2-12.0 [facility] Monocyte percentageOrdered B y: Dominick Schaffer on 02-14-2025 Monocytes/100 WBC (Bld) 9.0 % 0-10 [facility] Neutrophil percentageOrdered By: Dominick Schaffer on 02-14-2025 Neutrophils/100 WBC (Bld) 58.2 % 47-70 [facility] No Panel InformationOrdered By: Dominick Schaffer on 02-14-2025 Unsaturated Iron Binding Capacity 371 ug/dL 228-428 [facility] Nucleated red blood cell per centageOrdered By: Dominick Schaffer on 02-14-2025 Nucleated RBC/100 WBC (Bld) [Ratio] 0 % 0-5 [facility] Platelet countOrdered By: Breana Schaffer on 02-14-2025 Platelets (Bld) [#/Vol] 300 10*3/uL 150-450 [facility] Potassium measurement (mass/ volume)Ordered By: Dominick Schaffer on 02-14-2025 Potassium (Unsp spec) [Mass/Vol] 4.4 mmol/L 3.3-5.1 [facility] RBC Auto (Bld) [#/Vol]Ordere d By: Dominick Schaffer on 02-14-2025 RBC (Bld) [#/Vol] 4.07 10*6/uL Low 4.2-5.4 [facility] Serum creatinine measurement (mass/volume)Ordered By: Dominick Schaffer on 02-14-2025 Creatinine [Mass/Vol] 0.65 mg/dL Low 0.70-1.20 [facility] Serum globulin measurementOr dered By: Dominick Schaffer on 02-14-2025 Globulin (S) [Mass/Vol] 2.8 g/dL 2.2-4.2 [facility] Serum glucose measurement (m ass/volume)Ordered By: Dominick Schaffer on 02-14-2025 Glucose [Mass/Vol] 89 mg/dL 70-99 [facility] Serum or plasma alanine bull otransferase (ALT) measurementOrdered By: Dominick Schaffer on 02-14-2025 ALT [Catalytic activity/Vol] 25 U/L <35 [facility] Serum or plasma albumin momo urement (mass/volume)Ordered By: Dominick Schaffer on 02-14-2025 Albumin [Mass/Vol] 4.5 g/dL 3.4-4.8 [facility] Serum or plasma albumin/glob ulin mass ratioOrdered By: Dominick Schaffer on 02-14-2025 Albumin/Globulin [Mass ratio] 1.6 {ratio} 0.9-2.4 [facility] Serum or plasma alkaline aaron sphatase measurementOrdered By: Dominick Schaffer on 02-14-2025 ALP [Catalytic activity/Vol] 44 U/L 35-104 [facility] Serum or plasma calcium momo urement (mass/volume)Ordered By: Dominick Schaffer on 02-14-2025 Calcium [Mass/Vol] 9.0 mg/dL 7.6-11.0 [facility] Serum or plasma ferritin oscar surement (mass/volume)Ordered By: Dominick Schaffer on 02-14-2025 Ferritin [Mass/Vol] 11 ng/mL Low 22-378 [facility] Serum or plasma iron saturat ion measurement (mass fraction)Ordered By: Dominick Schaffer on 02-14-2025 Iron saturation [Mass fraction] 12.0 % Low 13-59 [facility] Serum or plasma thyroperoxid ase antibody assay (units/volume)Ordered By: Dominick Schaffer on 02-14-2025 TPO Ab Qn 19 [IU]/mL 0-34 [facility] Serum or plasma urea nitroge n measurement (mass/volume)Ordered By: Dominick Schaffer on 02-14-2025 Urea nitrogen [Mass/Vol] 15 mg/dL 4-19 [facility] Sodium levelOrdered By: Dominick Schaffer on 02-14-2025 Sodium [Moles/Vol] 139 mmol/L 133-145 [facility] T4 Free Directon 02-14-2025 T4 FREE DIRECT 1.00 ng/dL Normal 0.76-1.46 [facility] Comment on above: Order Comment: Order Date: 02/14/25Order Info: 3016-3 - TSHOrder Info: 3024-7 - T4F Performed By: #### L 100.0100, L503.6030, L503.6550 #### [facility] [address] [place], [address] T4 freeOrdered By: Dominick bonner on 02-14-2025 Free T4 [Mass/Vol] 1.00 ng/dL 0.76-1.46 [facility] TSH DL <= 0.005 mIU/L QnOrde red By: Dominick Schaffer on 02-14-2025 TSH Qn 2.720 uIU/mL 0.300-4.20 0 [facility] Thyroid Stim Hormone (TSH)on 02-14-2025 TSH 2.720 uIU/mL Normal 0.300-4.20 0 [facility] Comment on above: Order Comment: Order Date: 02/14/25Order Info: 3016-3 - TSHOrder Info: 3024-7 - T4F Performed By: #### L 100.0100, L503.6030, L503.6550 #### [facility] [address] [place], [place], [address] Total proteinOrdered By: Moe Schaffer on 02-14-2025 Protein [Mass/Vol] 7.3 g/dL 5.9-8.4 [facility] Vitamin B12on 02-14-2025 Cobalamin (Vitamin B12) [Mass/Vol] 229 pg/mL Normal 180-914 [facility] Comment on above: Order Comment: Order Date: 02/14/25 Order Info: 3016-3 - TSH Order Info: 3024-7 - T4F Performed By: #### L 503.6030, L500.4050, L503.0106, L503.6550, L506.0200, L3300.6750, L100.0100 #### [facility] [address] [place], [address] Vitamin B12 ser/plasOrdered By: Dominick Schaffer on 02-14-2025 Cobalamin (Vitamin B12) [Mass/Vol] 229 pg/mL 180-914 [facility] White blood cell (WBC) count Ordered By: Dominick Turnerciera on 02-14-2025 WBC (Bld) [#/Vol] 3.9 10*3/uL Low 4.4-11.0 [facility] Orthopedic Visit Reporton Orthopedic Visit Report [facility] [facility] [address] [place] [address] OFFICE VISIT Date of Service: 12/07/24 MR#: [id number] Acct: [id number] Name: MADELYN HAYES Rep #: [id number] : 1960 Provider: Dr. Jm andrade MD Age/Sex: 64/F Location[place] [facility] [place] Status: Signed Intake Vital Signs 10/08/24 15:15 11/26/24 07:59 12/07/24 08:00 Height 5 ft 7 in 5 ft 7 in 5 ft 7 in Weight: 156 lb BMI 24.4 Intake Visit Reasons: left hand Chief Complaint: Left Hand - Trigger Finger 2 week post op Accompanied by: Self Is patient in pain?: No Allergies ampicillin Allergy (Mild, Verified 12/07/24 08:05) Other Medications ???Medication ???Instructions ???Recorded ???Confirmed ???Type multivitamin 1 cap PO DAILY 09/16/19 12/07/24 H istory estradiol 0.01% (0.1 mg/gram) See Rx Instructions vaginal 12/07/24 Rx vaginal cream .COMPLEX #42.5 grams estradiol 0.0375 mg/24 hr 1 patch transdermal 2XW #24 ea 12/0612/07/24 Rx semiweekly transdermal patch pramipexole 0.5 mg tablet 0.5 mg PO QHS Restless leg 11/14/2 5 12/07/24 History Have you fallen in the past year?: No PFSH Medical History Wears contact lenses Wears glasses Cancer Non-smoker Trigger finger, left middle finger Restless legs Anemia Viral encephalitis Surgical History History of esophagogastroduodenoscopy (EGD) History of colonoscopy History of breast biopsy 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 History of hysterectomy History of LAVH H/O hernia repair Family History Father Colon cancer Heart disease heart valve replacement Grandmother Breast cancer Social History Smoking Status: Never smoker alcohol intake: current details: social substance use type: does not use caffeine: Yes what type of physical activity do you participate in: walking seatbelt use: always do you feel safe at home: Yes 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 Jm Rodríguez MD 12/07/24 0800. Part of today???s visit was documented by [ ], acting as scribe. MADELYN HAYES is a 64 year old F here today for 2 weeks postop left middle finger trigger finger release. Patient doing well no triggering or locking some mild swelling. Working on gentle range of motion of the hand. Mild stiffness in extension Ortho Exam General General: Yes no acute distress Neurologic: Yes alert and Yes oriented x3 Psychologic: Yes reasonable and appropriate Right Wrist/Hand Skin/Wound: Yes Swelling (mild) and No Ecchymosis Left Wrist/Hand Skin/Wound: Yes CDI, Yes healed, Yes Swelling (mild), No Ecchymosis, Yes nail intact, Yes capillary refill normal and No erythema Motor: EPL: 5, FDP-2: 5, 1st Dorsal Interosseous: 5 and APB: 5 Sensation: Radial: I, Ulnar: I and Median: I WRIST: Full range of motion of the finger. Coding Level of Care Code Global Post Op Diagnoses Trigger finger, left middle finger M65.332 Assessment and Plan Assessment and Plan (1) Trigger finger, left middle finger: Status: Acute Plan: 64-year-old female 2 weeks follow-up left middle finger trigger finger release patient doing well wound healed okay to gradually resume all normal activities try to avoid heavy lifting or gripping for another couple weeks the patient is happy to follow-up as needed. OK to shower over incision. Clinical Quality Measures Falls Risk Screening/Assistive Devices Have you fallen in the past year?: No 12/07/24 0813 Date Jm Rodríguez MD Cosigner Signature: Date (if applicable) CC: Normal [facility] Orthopedic Visit Reporton Orthopedic Visit Report [facility] [address] [place] [address] OFFICE VISIT Date of Service: 11/26/24 MR#: [id number] Acct: [id number] Name: MADELYN HAYES CHAD Rep #: [id number] : 1960 Provider: Dr. Jm andrade MD Age/Sex: 64/F Location: [facility] [place] Status: Signed Intake Vital Signs 10/08/24 15:15 11/23/24 06:28 11/26/24 07:59 Height 5 ft 7 in 5 ft 7 in 5 ft 7 in Weight: 156 lb BMI 24.4 Intake Visit Reasons: left hand Chief Complaint: Left Hand - Trigger Finger 2 day post op Accompanied by: Self Is patient in pain?: No Allergies ampicillin Allergy (Mild, Verified 11/26/24 08:05) Other Medications ???Medication ???Instructions ???Recorded ???Confirmed ???Type multivitamin 1 cap PO DAILY 09/16/19 11/26/24 H istory estradiol 0.01% (0.1 mg/gram) See Rx Instructions vaginal 11/26/24 Rx vaginal cream .COMPLEX #42.5 grams estradiol 0.0375 mg/24 hr 1 patch transdermal 2XW #24 ea 12/0611/26/24 Rx semiweekly transdermal patch pramipexole 0.5 mg tablet 0.5 mg PO QHS Restless leg 5 11/26/24 History Have you fallen in the past year?: No PFSH Medical History Wears contact lenses Wears glasses Cancer Non-smoker Trigger finger, left middle finger Restless legs Anemia Viral encephalitis Surgical History History of esophagogastroduodenoscopy (EGD) History of colonoscopy History of breast biopsy 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 History of hysterectomy History of LAVH H/O hernia repair Family History Father Colon cancer Heart disease heart valve replacement Grandmother Breast cancer Social History Smoking Status: Never smoker alcohol intake: current details: social substance use type: does not use caffeine: Yes what type of physical activity do you participate in: walking seatbelt use: always do you feel safe at home: Yes 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 Jm Rodríguez MD 11/26/24 0759. Part of today???s visit was documented by [ ], acting as scribe. MADELYN HAYES is a 64 year old F here today for pod 4 Left middle finger volar A1 lety release. Doing well. No concerns no locking. Ortho Exam General General: Yes no acute distress Neurologic: Yes alert and Yes oriented x3 Psychologic: Yes reasonable and appropriate Right Wrist/Hand Skin/Wound: No Swelling and No Ecchymosis Left Wrist/Hand Skin/Wound: Yes CDI, Yes healing, No Swelling, No Ecchymosis, Yes nail intact, Yes capillary refill normal and No erythema Motor: EPL: 4, FDP-2: 4, 1st Dorsal Interosseous: 4 and APB: 4 Sensation: Radial: I, Ulnar: I and Median: I Coding Level of Care Code Global Post Op Diagnoses Trigger finger, left middle finger M65.332 Assessment and Plan Assessment and Plan (1) Trigger finger, left middle finger: Status: Acute Plan: MADELYN HAYES is a 64 year old F here today for pod 4 Left middle finger volar A1 lety release. Keep the incision clean and dry first 2 weeks change dressing every 1 to 2 days gentle range of motion no heavy lifting gripping pushing or pulling follow-up in the office in about 2 weeks time. I put on new Steri-Strips and cover the incision. Clinical Quality Measures Falls Risk Screening/Assistive Devices Have you fallen in the past year?: No 11/26/24 0811 Date Jm Rodríguez MD Cosigner Signature: Date (if applicable) CC: Normal [facility] Discharge Instructionon 11-13 Discharge Instruction [facility] Medical Records Department [address] [place] [address] Instructions for Home/Discharge Instructions 11/23/24 0751 MR#: [id number] Acct: [id number] Name: MADELYN HAYES CHAD Rep #: [id number] : 1960 64 From: Jm Rodríguez MD PCP: Dr. Muna Putnam MD Status:REG [facility] [place] Discharge Instructions Diet Discharge Diet: No restrictions Activity Discharge Activity: Return to Normal Activity Lifting Restrictions: no heavy lifting or gripping Keep extremity elevated above heart level: Operative Extremity Additional Activity Instructions:: ok for gentle finger rom Dressing / Incision Call your doctor if your incision/area has: Continuous Slow Oozing, Sudden Increased Bleeding, Increased Pain/ Swelling, Increased Redness, Foul Smelling Discharge and Swelling at the incision site Call your doctor if you observe: Fever of 101 or Higher, Coldness, Increased Pain and Numbness or Tingling Change Dressing in: 1 day Cleanse incision/area with: Do not get Incision Wet Follow Up Care Please Follow Up With: Jm Rodríguez MD When: within 2 weeks Test Results: Test results from this visit will be discussed in further detail at your follow-up appointment, if applicable. Discharge Plan Admission Attending Provider: Jm Rodríguez Primary Care Provider: Muna Putnam Instructions Patient Instructions: What Is Trigger Finger? Print Language: Tunisian Discharge Orders/Prescriptions Prescriptions: No Action multivitamin Capsule 1 cap PO DAILY estradiol 0.01 % (0.1 mg/gram) cream See Rx Instructions vaginal .COMPLEX Qty: 42.5 2RF Rx Instructions: small amount as directed vaginal every other day X 4 weeks then twice a week; estradiol 0.0375 mg/24 hr patch semiweekly 1 patch Transdermal 2XW Qty: 24 4RF pramipexole 0.5 mg tablet 0.5 mg PO QHS Referrals / Follow Up: Muna Putnam MD [Primary Care Provider] - Jm Rodríguez MD [Med Staff - Active Staff] - Disposition Disposition (needs filled in before D/C Order can be placed): Home, Self Care 11/23/24751 Jm Rodríguez MD CC: Dr. Muna Putnam MD Signed [facility] MR/POSTOP.[facility] 11-23-2024 MR/POSTOP.[facility] Medical Records Department [address] [place] [address] Anesthesia Postop Eval I 11/23/243 MR#: [id number] Acct: [id number] Name: MADELYN HAYES CHAD Rep #: [id number] : 1960 64 From: Estuardo Lopez CRNA PCP: Dr. Muna Putnam MD Status:REG SDC Y Race: C Location: [place] [address] Anesthesia: Postop Eval I Current Vital Signs Temperature: 97.2 F Pulse Rate: 75 Blood Pressure: 108/70 Respiratory Rate: 16 Pulse Ox: 99 Oxygen Delivery Method: Room Air Assessment Airway patent: Yes Spontaneous unlabored respirations: Yes Mental status: Awake and Calm nausea: No Vomiting: No Anesthesia Complication: No Fluid Hydration Crystalloid volume administer (ml): 500 Total IV fluid infused: 500 Progress Note Anesthesia document: Postop Eval 1 completed: Yes 11/23/24 0754 Date Estuardo Lopez GEOLOGICAL MANAGER Cosigner Signature: Date CC: Signed Normal [facility] MR/[id number] 11-23-2024 MR/POSTOPAN2 [facility] Medical Records Department [address] [place] [address] Anesthesia Postop Eval II 11/23/24821 MR#: [id number] Acct: [id number] Name: MADELYN HAYES Rep #: [id number] : 1960 64 From: Mac Mario MD PCP: Dr. Muna Putnam MD Status:REG [facility] Y Race: C Location: [facility] Anesthesia Postop Eval I Sum Postop Eval Completion status Anesthesia document: Postop Eval 1 completed: Yes Anesthesia Postop Eval I Summary Anesthesia Postop Eval I Summary: Anesthesia Postop Eval I: Assessment Summary Airway patent Yes 11/23/24 07:54 GEOLOGICAL MANAGER.TNES Spontaneous unlabored Yes 11/23/24 07:54 GEOLOGICAL MANAGER.TNES respirations Mental status Awake,Calm 11/23/24 07:54 GEOLOGICAL MANAGER.TNES nausea No 11/23/24 07:54 GEOLOGICAL MANAGER.TNES Vomiting No 11/23/24 07:54 GEOLOGICAL MANAGER.TNES Anesthesia Postop Eval I: Fluid Summary Crystalloid volume administer 500 11/23/24 07:54 GEOLOGICAL MANAGER.TNES (ml) Colloids volume administered ( ml) Blood Product volume administered (ml) Total IV fluid infused 500 11/23/24 07:54 GEOLOGICAL MANAGER.TNES Anesthesia Postop Eval I: Summary Notes Anesthesia Complication No 11/23/24 07:54 GEOLOGICAL MANAGER.TNES Anesthesia Complication Comment: Post-operative progress note Anesthesia: Postop Eval II Evaluation Mental status: Awake Pain Level: 0 nausea: No Vomiting: No 11/23/24821 Mac Lozano Signature: Date CC: Signed Normal [facility] Operative Reporton 5 Operative Report [facility] Medical Records Department [address] [place] [address] Operative Report 11/23/24 0746 MR#: [id number] Acct: [id number] Name: MADELYN HAYES Rep #: [id number] : 1960 64 From: Jm Rodríguez MD PCP: Dr. Muna Putnam MD Status:[facility] Location: [place] [address] Problems Associated Problem List Diagnoses (1) Trigger finger, left middle finger: Procedures Musculoskeletal 20xxx-29xxx: Other Procedure See Report Operative Report (Standard) Operative Information Date of Procedure: 11/23/24 Pre-Operative Diagnosis: Left middle finger trigger finger Post-Operative Diagnosis: Same Surgery/Procedure Performed: Left middle finger volar A1 lety release car porter: No Type of Anesthesia: General and Local RN Documented Start/Stop Times: Operation Date: 11/23/24 07:30 Case Time Into Pre-Op 11/23/24 06:04 Anesthesia Start 11/23/24 07:20 Into Room 11/23/24 07:20 Out of Pre-Op 11/23/24 07:25 Procedure Start 11/23/24 07:34 Procedure Start Time: 07:34 Procedure Stop Time: 07:48 Select all DRAINS/GRAFTS/IMPLANTS that apply: None Estimated Blood Loss: 5 Specimen collected: No Description of surgery: Patient brought to the operating room theater. Placed supine on the table. Hand table to the patient's left side. All bony prominences padded. SCDs on the legs. 2 g IV Ancef administered prior to the start of the procedure. General anesthesia induced. Tourniquet applied to the upper extremity appropriately padded. Bed turned 90 degrees. Upper extremity prepped and draped in the usual sterile fashion allowing over 3 minutes drying time prior to draping. Preoperative timeout performed to confirm the site patient and the surgery. Began by inflating the tourniquet to 250 mmHg. Use the iron hand to stabilize the hand. Used 2 cc of half percent bupivacaine around the incision site. Made a small longitudinal incision at the volar A1 lety of the left middle finger. Carried dissection down through skin and subcutaneous tissue to meticulous hemostasis. Identified the volar A1 lety made a longitudinal incision and that fully release this proximally and distally. Identified the tendons deliver these through the incision. Tendons were intact no signs of degeneration. Tourniquet let down meticulous hemostasis achieved wound thoroughly irrigated. Subcutaneous tissue closed with 3-0 Vicryl suture and skin with 3-0 Monocryl. Skin cleaned with wet dry followed application of Steri-Strips Adaptic 4 x 4 gauze and Damian wrap loosely wrapped. Patient woken up from a general anesthetic transferred off the operating table taken to postanesthetic care unit in stable condition. All sponge needle instrument counts were correct no complications plan for the patient gentle range of motion of the fingers no heavy lifting or gripping and follow-up in the office within [address] [place]pt [address]872 Surgical Findings: As above Complications Complications: No Admit VTE Documentation VTE Present on Admission: No VTE Mechan Device Prophylaxis: SCD's VTE Pharm Prophylaxis ordered?: No Reason prophylaxis not ordered: Treatment Not Indicated 11/23/24 0750 Cosigner Signature (if applicable): CC: Dr. Muna Putnam MD; Dr. Jm Rodríguez MD Signed Normal [facility] Orthopedic Visit Reporton Orthopedic Visit Report [facility] [address] [place] [address] OFFICE VISIT Date of Service: 10/08/24 MR#: [id number] Acct: [id number] Name: MADELYN HAYES CHAD Rep #: [id number] : 1960 Provider: Dr. Jm andrade MD Age/Sex: 64/F Location: [facility] [place] Status: Signed Intake Vital Signs 06/18/24 11:19 10/08/24 15:15 Height 5 ft 7 in 5 ft 7 in Weight: 158 lb 2 oz BMI 24.7 Intake Visit Reasons: LEFT HAND Chief Complaint: Left Hand - Trigger Finger Accompanied by: Self Is patient in pain?: Yes Pain scale (1-10): 4 Allergies ampicillin Allergy (Mild, Verified 10/08/24 15:16) Other Medications ???Medication ???Instructions ???Recorded ???Confirmed ???Type multivitamin 1 cap PO DAILY 09/16/19 10/08/24 H istory pramipexole 0.25 mg tablet 0.25 mg PO DAILY 06/10/22 10/08/24 History estradiol 0.01% (0.1 mg/gram) See Rx Instructions vaginal 10/08/24 Rx vaginal cream .COMPLEX #42.5 grams estradiol 0.0375 mg/24 hr 1 patch transdermal 2XW #24 ea 12/0610/08/24 Rx semiweekly transdermal patch PFSH Medical History Trigger finger, left middle finger Restless legs Anemia Viral encephalitis Surgical History 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 History of hysterectomy History of LAVH H/O hernia repair Family History Father Colon cancer Heart disease heart valve replacement Grandmother Breast cancer Social History Smoking Status: Never smoker alcohol intake: current details: social substance use type: does not use caffeine: Yes what type of physical activity do you participate in: walking seatbelt use: always do you feel safe at home: Yes 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 Jm Rodríguez MD 10/08/24 1029. Part of today???s visit was documented by [ ], acting as scribe. MADELYN HAYES is a 64 year old F here today for FU left middle finger trigger finger, had cortisone injection 8 months ago. The injection was effective but the pain has returned in the finger is locking up especially in flexion. It is a minor problem but is still quite bothersome for the patient. Coding Level of Care Code Off vis,est,level 3 Diagnoses Trigger finger, left middle finger M65.332 Comment Assessment and Plan Assessment and Plan (1) Trigger finger, left middle finger: Status: Acute Plan: 64-year-old pleasant female with a left middle finger trigger finger. Explained the diagnosis prognosis different treatment options the patient including but not limited to rest ice anti- inflammatories activity modification splinting cortisone injections or A1 lety volar surgical release. Patient wishes to go ahead with left middle finger A1 lety release discussed the pros and cons risk benefits of continued nonoperative management as well as the recovery after surgery 2 weeks to heal the incision generally 4 to 6 weeks of no heavy lifting or gripping but immediate range of motion of the fingers. Pros and cons risks and benefits were discussed with the patient including but not limited to infection, pain, stiffness, bleeding, damage to surrounding structures, neurovascular injury, recurrence or retear, failure or wear of hardware or fixation, bowstring, damage to tendon, instability, fracture, deep vein thrombosis and pulmonary embolism, anesthetic risks, , patient dissatisfaction, need for further surgery and other risks. Patient understood and wished to proceed with surgery, and signed the informed consent documentation. Ortho Exam General General: Yes no acute distress Neurologic: Yes alert and Yes oriented x3 Psychologic: Yes reasonable and appropriate Right Wrist/Hand Skin/Wound: No Swelling and No Ecchymosis Left Wrist/Hand Skin/Wound: Yes CDI, No Swelling, No Ecchymosis, Yes nail intact, Yes capillary refill normal and No erythema A1 lety trigger: Yes (middle, pain at volar a1 leyt) Left Wrist: No Snuffbox tenderness Motor: EPL: 5, FDP-2: 5, 1st Dorsal Interosseous: 5 and APB: 5 Sensation: Radial: I, Ulnar: I and Median: I WRIST: obvious triggering middle finger. 10/08/24 1541 Date Jm Rodríguez MD Cosigner Signature: Date (if applicable) CC: Normal [facility] Genital Culture Comprehensiv koko 06-22-2024 VAC Reason for Exam: vag inal irritation Normal vaginal konrad isolated. No yeast, Gardnerella, Neisseria or beta-hemolytic Streptococcus isolated. Normal [facility] Comment on above: Performed By: #### L 100.0100, L503.6030, L503.6550 #### [facility] [address], [address] Gram Stainon 06-19-2024 GS Reason for Exam: vag inal irritation Gram Stain 4+ Gram positive rods No Gram negative diplococci Normal [facility] Comment on above: Performed By: #### L 100.0100, L503.6030, L503.6550 #### [facility] [address] 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: Annual Non Food Receiving Clerk Required: No Is patient in pain?: No Allergies ampicillin Allergy (Mild, Verified 06/18/24 11:11) Other Medications ???Medication ???Instructions ???Recorded ???Confirmed ???Type multivitamin 1 cap PO DAILY 09/16/19 06/18/24 History pramipexole 0.25 mg tablet 0.25 mg PO DAILY 06/10/22 06/18/24 History estradiol 0.01% (0.1 mg/gram) See Rx Instructions vaginal 06/18/24 06/18/24 Rx vaginal cream .COMPLEX #42.5 grams estradiol 0.0375 mg/24 hr 1 patch transdermal 2XW #24 ea 06/18/24 06/18/24 Rx semiweekly transdermal patch Is last menstrual period known: No Post menopausal: Yes Patient : No : No PFSH Medical History Trigger finger, left middle finger Restless legs Anemia Viral encephalitis Surgical History 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 History of hysterectomy History of LAVH H/O hernia repair Family History Father Colon cancer Heart disease heart valve replacement Grandmother Breast cancer Social History Smoking Status: Never smoker alcohol intake: current details: social substance use type: does not use caffeine: Yes what type of physical activity do you participate in: walking seatbelt use: always do you feel safe at home: Yes 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 Date Name GA/Weeks Outcome Route Bth Weight Gen Labor Lgth Anesthesia Del [facility] Provider FOB Unknown 1986 Leatha live - full term Unknown 1989 Mac live - full term Unknown 1995 Charity live - full term HPI Encounter for routine gynecological examination Details: MADELYN HAYES is a 64 year old who presents for annual exam. Having mild vaginal itching. Wishes to continue estrogen patch. Noting urinary urgency and loss. Last PAP: lavh History of abnormal PAP: no Last mammogram: today History of abnormal mammogram: no Colon cancer screenin Other preventative health care screenings: Indy Ruelas Constitutional: Denies fatigue, weight gain or weight loss Cardio Card: Denies chest pain Resp Resp: Denies cough or dyspnea on exertion GI GI: Denies abdominal pain, bloating, change in stool character, constipation or vomiting : Reports as per HPI; Denies difficulty voiding, pelvic pain, urinary frequency, urinary incontinence, urinary urgency, vaginal discharge or vaginal pruritus Exam Const General: cooperative, healthy appearing, no acute distress and well developed Orientation: alert, oriented to person and oriented to place [facility] Head: normal to inspection Neck Neck: normal visual inspection Thyroid: thyroid normal Lymphatic: no lymphadenopathy noted Chest Breast inspection: normal inspection of the breasts and normal inspection of the axillae Breast palpation: normal palpation of the breasts, normal palpation of the axillae and no axillary lymphadenopathy Resp Effort Inspection: normal respiratory effort GI Palpation: soft, no masses and nontender Rectal Exam: deferred External Female Exam: normal external appearance and normal appearance of the urethra Urethra: normal appearance of the urethra and normal palpation Speculum Exam - Vagina: normal vaginal discharge and vagina atrophic (mild) Speculum Exam - Cervix: normal appearance of the cervix Bimanual Exam- Vagina Uterus: normal bimanual exam, uterine size normal, uterine shape normal and non-tender Bimanual Exam- Adnexa, other: normal adnexae, no masses, normal and non-tender Pelvic Support: normal Neuro General: patient alert and patient oriented x3 Psych Affect: normal affect Coding Level of Care Code Off vis,est,prev 40-64yrs Diagnoses Encounter for gynecological examination with abnormal finding Z01.411 Gynecolog (more content not included)... Normal [facility] SCRN MAMM (CAD)W/NUBIA BILATo n 06-18-2024 SCRN MAMM (CAD)W/NUBIA BILAT [facility] Imaging Services [address] [place] [address] [id number] SCRN MAMM (CAD)W/NUBIA BILAT MR#: [id number] Acct: [id number] Name: MADELYN HAYES CHAD Rep #: [id number] : 1960 F 64 From: Anson dang MD PCP: Dr. Muna Putnam MD Status: REG CLI Study: SCRN MAMM (CAD)W/NUBIA BILAT Date of Exam: 12/06 Exam# [id number] Ordering Dr: Sabra Silva HELICOPTER PILOT HELICOPTER PILOT -C [id number] MAMMOGRAPHY - BILATERAL SCREENING REASON FOR EXAM: Female, 64 years old. Routine annual screening examination. PERTINENT HISTORY: Grandmother with breast cancer. Prior left excisional breast biopsy. TECHNIQUE: Digital bilateral breast nubia (3D mammographic acquisition) in the CC and MLO projections. 2-D mediolateral oblique (MLO) and craniocaudad (CC) views of both breasts were obtained. CAD: Full Field Digital Mammography with Computer Added Detection was performed. COMPARISON: Comparison is made with prior study June 14, 2023 and June 10, 2022. FINDINGS: Breast Composition: The breasts are extremely dense, which lowers the sensitivity of mammography. There are no dominant masses or suspicious calcifications. No other significant abnormalities are identified. There has been no significant change since the prior study. BI/SCRN MAMM (CAD)W/NUBIA BILAT IMPRESSION: Stable bilateral screening mammogram. Yearly follow-up mammogram recommended. (A) ASSESSMENT CATEGORY: BIRADS Category 2: Benign. A letter regarding these results will be sent to the patient by the facility within 30 days. Approximately 10% of breast cancers are not detected by mammography. A normal mammogram should not delay biopsy of a clinically suspicious abnormality. [id number] Electronically Signed: Anson Cisneros MD at 11:50 EST , CC: DAVID Silva; Dr. Muna Putnam MD Finger Waver: Signed Normal [facility] Absolute lymphocyte countOrd ered By: Muna Putnam on 04-29-2023 Lymphocytes Auto (Unsp spec) [#/Vol] 1.22 10*3/uL 0.83-4.51 [facility] Basophil percentageOrdered B y: Muna Putnam on 04-29-2023 Basophils/100 WBC (Bld) 0.4 % 0-1 [facility] Cholesterol [Mass/Vol] 180 mg/dL <200 [facility] Comment on above: <200 mg/dL Desirable 200-240 mg/dL Borderline >240 mg/dL High Risk Eosinophils/100 WBC (Bld) 0.7 % 0-5 [facility] Neutrophils (Bld) [#/Vol] 2.9 10*3/uL 2.0-7.7 [facility] Neutrophils/100 WBC (Bld) 64.0 % 47-70 [facility] Triglyceride [Mass/Vol] 64 mg/dL <199 [facility] Comment on above: The drugs N-Acetylcy steine and Metamizole may falsely depress this assay.Serum Triglycerides Reference Interval Normal <150 mg/dL Borderline high 150 - 199 mg/dL High 200 - 499 mg/dL Very High > or = 500 mg/dL WBC (Bld) [#/Vol] 4.5 10*3/uL 4.4-11.0 [facility] Blood erythrocytes count (nu mber/volume)Ordered By: Muna Putnam on 04-29-2023 RBC (Bld) [#/Vol] 4.19 10*6/uL 4.2-5.4 [facility] Blood hemoglobin measurement (mass/volume)Ordered By: Muna Putnam on 04-29-2023 Hemoglobin (Bld) [Mass/Vol] 12.9 g/dL 12.0-15.0 [facility] Blood lymphocytes/100 leukoc ytesOrdered By: Muna Putnam on 04-29-2023 Lymphocytes/100 WBC (Bld) 27.1 % 19-41 [facility] Blood monocytes/100 leukocyt esOrdered By: Muna Putnam on 04-29-2023 Monocytes/100 WBC (Bld) 7.6 % 0-10 [facility] Blood platelet mean volumeOr dered By: Muna Putnam on 04-29-2023 Platelet mean volume (Bld) [Entitic vol] 9.4 fL 6.2-12.0 [facility] Determination of erythrocyte mean corpuscular volume (MCV)Ordered By: Muna Putnam on 04-29-2023 MCV (RBC) [Entitic vol] 92.4 fL 81-99 [facility] Hematocrit Auto (Bld) [Volum e fraction]Ordered By: Muna Putnam on 04-29-2023 Hematocrit (Bld) [Volume fraction] 38.7 % 37-47 [facility] Laboratory - Hematology and Cell countsOrdered By: Muna Putnam on 04-29-2023 Erythrocyte distribution width (RBC) [Entitic vol] 39.8 fL 35.1-43.9 [facility] Erythrocyte distribution width (RBC) [Ratio] 11.9 % 11.6-14.6 [facility] Immature granulocytes/100 WBC (Bld) 0.200 % 0.0-0.9 [facility] Comment on above: IG% - Immature Granu locytes (promyelocytes, myelocytes and metamyelocytes) > 1% indicates that a LEFT SHIFT is Present. MCH (RBC) [Entitic mass] 30.8 pg 27.0-32.0 [facility] Nucleated RBC/100 WBC (Bld) [Ratio] 0 % 0-5 [facility] MCHC Auto (RBC) [Mass/Vol]Or dered By: Muna Putnam on 04-29-2023 MCHC (RBC) [Mass/Vol] 33.3 g/dL 32-36 [facility] Platelets bldOrdered By: Muna Putnam on 04-29-2023 Platelets (Bld) [#/Vol] 273 10*3/uL 150-450 [facility] Serum or plasma cholesterol in HDL measurement (mass/volume)Ordered By: Muna Putnam on 04-29-2023 Cholesterol in HDL [Mass/Vol] 84 mg/dL >40 [facility] Comment on above: The drugs N-Acetylcy steine and Metamizole may falsely depress this assay. Reference Range HDL <40 mg/dL Low HDL Cholesterol HDL >or= 60 mg/dL High HDL Cholesterol Serum or plasma cholesterol in VLDL measurement (mass/volume)Ordered By: Muna Putnam on 04-29-2023 Cholesterol in VLDL [Mass/Vol] 13 mg/dL 5-40 [facility] Serum or plasma low density lipoprotein (LDL) cholesterol measurement (mass/volume)Ordered By: Muna Putnam on 04-29-2023 Cholesterol in LDL [Mass/Vol] 83 mg/dL 0-130 [facility] Absolute lymphocyte countOrd ered By: Dr. Amaro on 12-20-2022 Lymphocytes Auto (Unsp spec) [#/Vol] 1.26 10*3/uL 0.83-4.51 [facility] Basophil percentageOrdered B y: Dr. Amaro on 12-20-2022 Basophils/100 WBC (Bld) 0.5 % 0-1 [facility] Eosinophils/100 WBC (Bld) 2.7 % 0-5 [facility] Neutrophils (Bld) [#/Vol] 2.6 10*3/uL 2.0-7.7 [facility] Neutrophils/100 WBC (Bld) 60.3 % 47-70 [facility] WBC (Bld) [#/Vol] 4.4 10*3/uL 4.4-11.0 [facility] Blood erythrocytes count (nu mber/volume)Ordered By: Dr. Amaro on 12-20-2022 RBC (Bld) [#/Vol] 4.43 10*6/uL 4.2-5.4 [facility] Blood hemoglobin measurement (mass/volume)Ordered By: Dr. Amaro on 12-20-2022 Hemoglobin (Bld) [Mass/Vol] 13.1 g/dL 12.0-15.0 [facility] Blood lymphocytes/100 leukoc ytesOrdered By: Dr. Amaro on 12-20-2022 Lymphocytes/100 WBC (Bld) 28.8 % 19-41 [facility] Blood monocytes/100 leukocyt esOrdered By: Dr. Amaro on 12-20-2022 Monocytes/100 WBC (Bld) 7.5 % 0-10 [facility] Blood platelet mean volumeOr dered By: Dr. Amaro on 12-20-2022 Platelet mean volume (Bld) [Entitic vol] 9.5 fL 6.2-12.0 [facility] Determination of erythrocyte mean corpuscular volume (MCV)Ordered By: Dr. Amaro on 12-20-2022 MCV (RBC) [Entitic vol] 92.8 fL 81-99 [facility] Hematocrit Auto (Bld) [Volum e fraction]Ordered By: Dr. Amaro on 12-20-2022 Hematocrit (Bld) [Volume fraction] 41.1 % 37-47 [facility] Iron measurement (mass/mass) Ordered By: Dr. Amaro on 12-20-2022 Iron (Unsp spec) [Mass/Mass] 83 ug/dL 50-170 [facility] Laboratory - Hematology and Cell countsOrdered By: Dr. Amaro on 12-20-2022 Erythrocyte distribution width (RBC) [Entitic vol] 41.3 fL 35.1-43.9 [facility] Erythrocyte distribution width (RBC) [Ratio] 12.2 % 11.6-14.6 [facility] Immature granulocytes/100 WBC (Bld) 0.200 % 0.0-0.9 [facility] Comment on above: IG% - Immature Granu locytes (promyelocytes, myelocytes and metamyelocytes) > 1% indicates that a LEFT SHIFT is Present. MCH (RBC) [Entitic mass] 29.6 pg 27.0-32.0 [facility] Nucleated RBC/100 WBC (Bld) [Ratio] 0 % 0-5 [facility] MCHC Auto (RBC) [Mass/Vol]Or dered By: Dr. Amaro on 12-20-2022 MCHC (RBC) [Mass/Vol] 31.9 g/dL 32-36 [facility] Platelets bldOrdered By: Dr. Amaro on 12-20-2022 Platelets (Bld) [#/Vol] 302 10*3/uL 150-450 [facility] Serum or plasma ferritin oscar surement (mass/volume)Ordered By: Dr. Amaro on 12-20-2022 Ferritin [Mass/Vol] 18 ng/mL 8-252 [facility] Absolute lymphocyte countOrd ered By: Dr. Amaro on 09-22-2022 Lymphocytes Auto (Unsp spec) [#/Vol] 1.21 10*3/uL 0.83-4.51 [facility] Basophil percentageOrdered B y: Dr. Amaro on 09-22-2022 Basophils/100 WBC (Bld) 0.5 % 0-1 [facility] Eosinophils/100 WBC (Bld) 4.0 % 0-5 [facility] Neutrophils (Bld) [#/Vol] 2.2 10*3/uL 2.0-7.7 [facility] Neutrophils/100 WBC (Bld) 56.3 % 47-70 [facility] WBC (Bld) [#/Vol] 4.0 10*3/uL 4.4-11.0 [facility] Blood erythrocytes count (nu mber/volume)Ordered By: Dr. Amaro on 09-22-2022 RBC (Bld) [#/Vol] 4.69 10*6/uL 4.2-5.4 [facility] Blood hemoglobin measurement (mass/volume)Ordered By: Dr. Amaro on 09-22-2022 Hemoglobin (Bld) [Mass/Vol] 14.0 g/dL 12.0-15.0 [facility] Blood lymphocytes/100 leukoc ytesOrdered By: Dr. Amaro on 09-22-2022 Lymphocytes/100 WBC (Bld) 30.6 % 19-41 [facility] Blood monocytes/100 leukocyt esOrdered By: Dr. Amaro on 09-22-2022 Monocytes/100 WBC (Bld) 8.3 % 0-10 [facility] Blood platelet mean volumeOr dered By: Dr. Amaro on 09-22-2022 Platelet mean volume (Bld) [Entitic vol] 9.5 fL 6.2-12.0 [facility] Determination of erythrocyte mean corpuscular volume (MCV)Ordered By: Dr. Amaro on 09-22-2022 MCV (RBC) [Entitic vol] 93.6 fL 81-99 [facility] Hematocrit Auto (Bld) [Volum e fraction]Ordered By: Dr. Amaro on 09-22-2022 Hematocrit (Bld) [Volume fraction] 43.9 % 37-47 [facility] Iron measurement (mass/mass) Ordered By: Dr. Amaro on 09-22-2022 Iron (Unsp spec) [Mass/Mass] 117 ug/dL 50-170 [facility] Laboratory - Hematology and Cell countsOrdered By: Dr. Amaro on 09-22-2022 Erythrocyte distribution width (RBC) [Entitic vol] 44.2 fL 35.1-43.9 [facility] Erythrocyte distribution width (RBC) [Ratio] 12.9 % 11.6-14.6 [facility] Immature granulocytes/100 WBC (Bld) 0.300 % 0.0-0.9 [facility] Comment on above: IG% - Immature Granu locytes (promyelocytes, myelocytes and metamyelocytes) > 1% indicates that a LEFT SHIFT is Present. MCH (RBC) [Entitic mass] 29.9 pg 27.0-32.0 [facility] Nucleated RBC/100 WBC (Bld) [Ratio] 0 % 0-5 [facility] MCHC Auto (RBC) [Mass/Vol]Or dered By: Dr. Amaro on 09-22-2022 MCHC (RBC) [Mass/Vol] 31.9 g/dL 32-36 [facility] Platelets bldOrdered By: Dr. Amaro on 09-22-2022 Platelets (Bld) [#/Vol] 301 10*3/uL 150-450 [facility] Serum or plasma ferritin oscar surement (mass/volume)Ordered By: Dr. Amaro on 09-22-2022 Ferritin [Mass/Vol] 15 ng/mL 8-252 [facility] Absolute lymphocyte counton 06-22-2022 Lymphocytes Auto (Unsp spec) [#/Vol] 1.17 10*3/uL 0.83-4.51 [facility] Work Phone: Basophil percentageon 2021 Basophils/100 WBC (Bld) 0.8 % 0-1 [facility] Work Phone: Eosinophils/100 WBC (Bld) 2.1 % 0-5 [facility] Work Phone: Neutrophils (Bld) [#/Vol] 2.1 10*3/uL 2.0-7.7 [facility] Work Phone: Neutrophils/100 WBC (Bld) 55.9 % 47-70 [facility] Work Phone: WBC (Bld) [#/Vol] 3.8 10*3/uL 4.4-11.0 [facility] Work Phone: Blood erythrocytes count (nu mber/volume)on 06-22-2022 RBC (Bld) [#/Vol] 4.48 10*6/uL 4.2-5.4 [facility] Work Phone: [phone] Blood hemoglobin measurement (mass/volume)on 06-22-2022 Hemoglobin (Bld) [Mass/Vol] 12.7 g/dL 12.0-15.0 [facility] Work Phone: [phone] Blood lymphocytes/100 leukoc yteson 06-22-2022 Lymphocytes/100 WBC (Bld) 30.5 % 19-41 [facility] Work Phone: [phone] Blood monocytes/100 leukocyt eson 06-22-2022 Monocytes/100 WBC (Bld) 10.7 % 0-10 [facility] Work Phone: [phone] Blood platelet mean volumeon 06-22-2022 Platelet mean volume (Bld) [Entitic vol] 9.8 fL 6.2-12.0 [facility] Work Phone: [phone] Determination of erythrocyte mean corpuscular volume (MCV)on 06-22-2022 MCV (RBC) [Entitic vol] 89.3 fL 81-99 [facility] Work Phone: [phone] Hematocrit Auto (Bld) [Volum e fraction]on 06-22-2022 Hematocrit (Bld) [Volume fraction] 40.0 % 37-47 [facility] Work Phone: [phone] Iron measurement (mass/mass) on 06-22-2022 Iron (Unsp spec) [Mass/Mass] 115 ug/dL 50-170 [facility] [facility] Work Phone: [phone] Laboratory - Hematology and Cell countson 06-22-2022 Erythrocyte distribution width (RBC) [Entitic vol] 58.5 fL 35.1-43.9 [facility] Work Phone: [phone] Erythrocyte distribution width (RBC) [Ratio] 17.7 % 11.6-14.6 [facility] Work Phone: [phone] Immature granulocytes/100 WBC (Bld) 0.000 % 0.0-0.9 [facility] Work Phone: Comment on above: IG% - Immature Granu locytes (promyelocytes, myelocytes and metamyelocytes) > 1% indicates that a LEFT SHIFT is Present. MCH (RBC) [Entitic mass] 28.3 pg 27.0-32.0 [facility] Work Phone: Nucleated RBC/100 WBC (Bld) [Ratio] 0 % 0-5 [facility] Work Phone: [phone] MCHC Auto (RBC) [Mass/Vol]on 06-22-2022 MCHC (RBC) [Mass/Vol] 31.8 g/dL 32-36 [facility] Work Phone: [phone] Platelets bldon 06-22-2022 Platelets (Bld) [#/Vol] 260 10*3/uL 150-450 [facility] Work Phone: Serum or plasma ferritin oscar surement (mass/volume)on 06-22-2022 Ferritin [Mass/Vol] 13 ng/mL 8 [facility] Work Phone: Iron measurement (mass/mass) on 05-14-2022 Iron (Unsp spec) [Mass/Mass] 156 ug/dL 50-170 [facility] Work Phone: No Panel Informationon 05-14 Endomysial IgA Antibody Negative Negative [facility] Work Phone: Serum IgA measurement (units /volume)on 05-14-2022 IgA Qn (S) 163 mg/dL 87-352 [facility] Work Phone: Comment on above: Performed at: [address] [id number] Director: Donte Sutherland PhD, Phone: [phone] Serum or plasma ferritin oscar surement (mass/volume)on 05-14-2022 Ferritin [Mass/Vol] 10 ng/mL 8-252 [facility] Work Phone: Serum tissue transglutaminas e IgA antibody assay (units/volume)on 05-14-2022 tTG IgA Qn (S) <2 U/mL 0-3 [facility] Work Phone: Comment on above: Negative 0 - 3 Weak Positive 4 - 10 Positive >10 Tissue Transglutaminase (tTG) has been identified as the endomysial antigen. Studies have demonstr- ated that endomysial IgA antibodies have over 99% specificity for gluten sensitive enteropathy. Absolute lymphocyte counton 04-26-2022 Lymphocytes Auto (Unsp spec) [#/Vol] 1.08 10*3/uL 0.83-4.51 [facility] Work Phone: Basophil percentageon 2021 Basophils/100 WBC (Bld) 0.4 % 0-1 [facility] Work Phone: Eosinophils/100 WBC (Bld) 3.4 % 0-5 [facility] Work Phone: Neutrophils (Bld) [#/Vol] 2.8 10*3/uL 2.0-7.7 [facility] Work Phone: Neutrophils/100 WBC (Bld) 63.3 % 47-70 [facility] Work Phone: WBC (Bld) [#/Vol] 4.5 10*3/uL 4.4-11.0 [facility] Work Phone: Blood erythrocytes count (nu mber/volume)on 04-26-2022 RBC (Bld) [#/Vol] 3.95 10*6/uL 4.2-5.4 [facility] Work Phone: Blood hemoglobin measurement (mass/volume)on 04-26-2022 Hemoglobin (Bld) [Mass/Vol] 10.1 g/dL 12.0-15.0 [facility] Work Phone: Blood lymphocytes/100 leukoc yteson 04-26-2022 Lymphocytes/100 WBC (Bld) 24.2 % 19-41 [facility] Work Phone: Blood monocytes/100 leukocyt eson 04-26-2022 Monocytes/100 WBC (Bld) 8.5 % 0-10 [facility] Work Phone: [phone] Blood platelet mean volumeon 04-26-2022 Platelet mean volume (Bld) [Entitic vol] 9.7 fL 6.2-12.0 [facility] Work Phone: [phone] Determination of erythrocyte mean corpuscular volume (MCV)on 04-26-2022 MCV (RBC) [Entitic vol] 85.8 fL 81-99 [facility] Work Phone: [phone] Hematocrit Auto (Bld) [Volum e fraction]on 04-26-2022 Hematocrit (Bld) [Volume fraction] 33.9 % 37-47 [facility] Work Phone: [phone] Iron measurement (mass/mass) on 04-26-2022 Iron (Unsp spec) [Mass/Mass] 26 ug/dL 50-170 [facility] Work Phone: [phone] Laboratory - Hematology and Cell countson 04-26-2022 Erythrocyte distribution width (RBC) [Entitic vol] 51.4 fL 35.1-43.9 [facility] Work Phone: [phone] Erythrocyte distribution width (RBC) [Ratio] 16.8 % 11.6-14.6 [facility] Work Phone: [phone] Immature granulocytes/100 WBC (Bld) 0.200 % 0.0-0.9 [facility] Work Phone: [phone] Comment on above: IG% - Immature Granu locytes (promyelocytes, myelocytes and metamyelocytes) > 1% indicates that a LEFT SHIFT is Present. MCH (RBC) [Entitic mass] 25.6 pg 27.0-32.0 [facility] Work Phone: [phone] Nucleated RBC/100 WBC (Bld) [Ratio] 0 % 0-5 [facility] Work Phone: [phone] MCHC Auto (RBC) [Mass/Vol]on 04-26-2022 MCHC (RBC) [Mass/Vol] 29.8 g/dL 32-36 [facility] Work Phone: [phone] Panel Informationon 04-26 Total Iron Binding Capacity 440 ug/dL 250-450 [facility] Work Phone: Platelets bldon 04-26-2022 Platelets (Bld) [#/Vol] 282 10*3/uL 150-450 [facility] Work Phone: Serum or plasma iron saturat ion measurement (mass fraction)on 04-26-2022 Iron saturation [Mass fraction] 5.9 % 15.0-55.0 [facility] Work Phone: Absolute lymphocyte counton 04-07-2022 Lymphocytes Auto (Unsp spec) [#/Vol] 1.18 10*3/uL 0.83-4.51 [facility] Work Phone: Basophil percentageon 2021 Basophils/100 WBC (Bld) 0.5 % 0-1 [facility] Work Phone: Bilirubin [Mass/Vol] 0.90 mg/dL 0.20-1.00 [facility] Work Phone: Comment on above: For patients on eltr ombopag therapy, use of Dimension [place] TBIL is not recommended. Chloride [Moles/Vol] 106 mmol/L 98-107 [facility] Work Phone: Eosinophils/100 WBC (Bld) 1.7 % 0-5 [facility] Work Phone: Glucose [Mass/Vol] 90 mg/dL 74-106 [facility] Work Phone: Neutrophils (Bld) [#/Vol] 4.7 10*3/uL 2.0-7.7 [facility] Work Phone: Neutrophils/100 WBC (Bld) 73.1 % 47-70 [facility] Work Phone: Potassium [Moles/Vol] 4.1 mmol/L 3.5-5.1 [facility] Work Phone: Protein [Mass/Vol] 7.7 g/dL 6.4-8.2 [facility] Work Phone: Sodium [Moles/Vol] 140 mmol/L 136-145 [facility] Work Phone: [phone] WBC (Bld) [#/Vol] 6.5 10*3/uL 4.4-11.0 [facility] Work Phone: [phone] Blood erythrocytes count (nu mber/volume)on 04-07-2022 RBC (Bld) [#/Vol] 4.04 10*6/uL 4.2-5.4 [facility] Work Phone: [phone] Blood hemoglobin measurement (mass/volume)on 04-07-2022 Hemoglobin (Bld) [Mass/Vol] 10.2 g/dL 12.0-15.0 [facility] Work Phone: [phone] Blood lymphocytes/100 leukoc yteson 04-07-2022 Lymphocytes/100 WBC (Bld) 18.2 % 19-41 [facility] Work Phone: [phone] Blood monocytes/100 leukocyt eson 04-07-2022 Monocytes/100 WBC (Bld) 6.3 % 0-10 [facility] Work Phone: [phone] Blood platelet mean volumeon 04-07-2022 Platelet mean volume (Bld) [Entitic vol] 9.6 fL 6.2-12.0 [facility] Work Phone: [phone] Determination of erythrocyte mean corpuscular volume (MCV)on 04-07-2022 MCV (RBC) [Entitic vol] 81.2 fL 81-99 [facility] Work Phone: [phone] Hematocrit Auto (Bld) [Volum e fraction]on 04-07-2022 Hematocrit (Bld) [Volume fraction] 32.8 % 37-47 [facility] Work Phone: [phone] Laboratory - Chemistry and C hemistry - challengeon 04-07-2022 ALP [Catalytic activity/Vol] 42 U/L 45-117 [facility] Work Phone: [phone] ALT [Catalytic activity/Vol] 27 U/L 13-56 [facility] Work Phone: CO2 [Moles/Vol] 27.0 mmol/L 21.0-32.0 [facility] Work Phone: [phone] Globulin (S) [Mass/Vol] 3.8 g/dL 2.2-4.2 [facility] Work Phone: [phone] Urea nitrogen/Creatinine [Mass ratio] 19.5 mg/mg 10-20 [facility] Work Phone: [phone] Laboratory - Hematology and Cell countson 04-07-2022 Erythrocyte distribution width (RBC) [Entitic vol] 41.6 fL 35.1-43.9 [facility] Work Phone: [phone] Erythrocyte distribution width (RBC) [Ratio] 13.9 % 11.6-14.6 [facility] Work Phone: [phone] Immature granulocytes/100 WBC (Bld) 0.200 % 0.0-0.9 [facility] Work Phone: [phone] Comment on above: IG% - Immature Granu locytes (promyelocytes, myelocytes and metamyelocytes) > 1% indicates that a LEFT SHIFT is Present. MCH (RBC) [Entitic mass] 25.2 pg 27.0-32.0 [facility] Work Phone: [phone] Nucleated RBC/100 WBC (Bld) [Ratio] 0 % 0-5 [facility] Work Phone: [phone] MCHC Auto (RBC) [Mass/Vol]on 04-07-2022 MCHC (RBC) [Mass/Vol] 31.1 g/dL 32-36 [facility] Work Phone: [phone] Panel Informationon 04-07 Estimated GFR (MDRD) Amer 106 mL/min >60 [facility] Work Phone: [phone] Comment on above: GFR Calc Estimated GFR (MDRD) Non-Af Amer 88 mL/min >60 [facility] Work Phone: [phone] Comment on above: Non- GFR Calc Thyroid Stimulating Hormone (TSH) 3.01 uIU/mL 0.358-3.74 [facility] Work Phone: Vitamin D 25-Hydroxy 33.1 ng/mL [facility] Work Phone: Comment on above: Vitamin D 25(OH) Sta tus Range Deficiency <20 ng/mL (50nmol/L) Insufficiency 20 - 30 ng/mL (50 - 75 nmol/L) Sufficiency 30 - 100 ng/mL (75 - 250 nmol/L) Toxicity >100 ng/mL (>250 nmol/L) Platelets bldon 04-07-2022 Platelets (Bld) [#/Vol] 384 10*3/uL 150-450 [facility] Work Phone: Serum or plasma albumin momo urement (mass/volume)on 04-07-2022 Albumin [Mass/Vol] 3.9 g/dL 3.2-5.0 [facility] Work Phone: Serum or plasma albumin/glob ulin mass ratioon 04-07-2022 Albumin/Globulin [Mass ratio] 1.0 {ratio} 0.9-2.4 [facility] Work Phone: Serum or plasma calcium momo urement (mass/volume)on 04-07-2022 Calcium [Mass/Vol] 8.6 mg/dL 8.5-10.1 [facility] Work Phone: Serum or plasma creatinine m easurement (mass/volume)on 04-07-2022 Creatinine [Mass/Vol] 0.72 mg/dL 0.55-1.02 [facility] Work Phone: Comment on above: The validity of the calculated GFR & GFRAA in patients over 70 years has not been determined. Clinical correlation is essential. Serum or plasma urea nitroge n measurement (mass/volume)on 04-07-2022 Urea nitrogen [Mass/Vol] 14 mg/dL 7-18 [facility] Work Phone: Thin prep Papanicolaou smear with manual screeningon 04-07-2022 Thin prep Papanicolaou smear with manual screening 17 U/L 15-37 [facility] Work Phone: Thin prep Papanicolaou smear with manual screening 7 5-15 [facility] Work Phone: Office Visit: est annualon 0 03-31-2017 Documentation of current medications (procedure) Done Invalid Interpretation Code [facility] Fall risk assessment No [facility] Protein mass conc Done [facility] Work Phone: Tobacco smoking status NHIS Never [facility] Tobacco smoking status NHIS Never smoker [facility] Work Phone: Tobacco use [facility] Never smoker Invalid Interpretation Code [facility] Office Visit: est annualon 0 03-15-2016 Breast Mammogram screening Normal Bilateral [facility] General categories [Interpretation] of Cervical or vaginal smear or scraping by Cyto stain Normal [facility] Vital Signs Date Time Vital Sign Value Performing Clinician Facility 03-07-2025 12:52-0400 Heart rate 73 /min Juan Robb MD Work Phone: [facility] 03-07-2025 12:52-0400 SaO2% (BldA) [Mass fraction] 100 % Juan Robb MD Work Phone: [facility] 03-07-2025 12:42-0400 Respiratory rate 16 /min Juan Robb MD Work Phone: [facility] 03-07-2025 12:22-0400 Diastolic blood pressure 70 mm[Hg] Juan Robb MD Work Phone: [facility] 03-07-2025 12:22-0400 Systolic blood pressure 115 mm[Hg] Juan Robb MD Work Phone: [facility] 03-07-2025 11:07-0400 Body mass index (BMI) [Ratio] 24.38 kg/m2 Juan Robb MD Work Phone: [facility] 03-07-2025 11:07-0400 Body temperature 97.81 [degF] Juan Robb MD Work Phone: [facility] 03-07-2025 11:07-0400 Body weight 70.6 kg Juan Robb MD Work Phone: [facility] 02-21-2025 09:12-0400 Body height 170.2 cm Courtney Maik [employer] Work Phone: [facility] 02-21-2025 09:12-0400 Body mass index (BMI) [Ratio] 24.37 kg/m2 Courtney Maik [employer] Work Phone: [facility] 02-21-2025 09:12-0400 Body weight 70.58 kg Courtney Maik [employer] Work Phone: [facility] 02-21-2025 09:12-0400 Diastolic blood pressure 71 mm[Hg] Courtney Maik [employer] Work Phone: [facility] 02-21-2025 09:12-0400 Heart rate 88 /min Courtney Maik [employer] Work Phone: [facility] 02-21-2025 09:12-0400 Systolic blood pressure 123 mm[Hg] Courtney Maik [employer] Work Phone: [facility] 12-07-2024 08:00-0400 Body height 170.[address] Muna Putnam MD Work Phone: [facility] 12-07-2024 08:00-0400 Body mass index (BMI) [Ratio] 24.4 kg/m2 Dr. Muna Putnam MD Work Phone: [facility] 12-07-2024 08:00-0400 Body weight 70.[address] Muna Putnam MD Work Phone: [facility] 11-26-2024 07:59-0400 Body mass index (BMI) [Ratio] 24.4 kg/m2 Dr. Muna Putnam MD Work Phone: [facility] 11-26-2024 07:59-0400 Body weight 70.[address] Muna Putnam MD Work Phone: [facility] 11-23-2024 08:05-0400 Body temperature 97.6 [degF] Dr. Muna Putnam MD Work Phone: [facility] 11-23-2024 08:05-0400 Diastolic blood pressure 70 mm[Hg] Dr. Muna Putnam MD Work Phone: [phone] [place] [address] 11-23-2024 08:05-0400 Heart rate 77 /min Dr. Muna Putnam MD Work Phone: [phone] [place] [address] 11-23-2024 08:05-0400 Respiratory rate 16 /min Dr. Muna Putnam MD Work Phone: [phone] [place] [address] 11-23-2024 08:05-0400 SaO2% (BldA) [Mass fraction] 100 % Dr. Muna Putnam MD Work Phone: [phone] [place] [address] 11-23-2024 08:05-0400 Systolic blood pressure 113 mm[Hg] Dr. Muna Putnam MD Work Phone: [phone] [place] [address] 11-23-2024 06:28-0400 Body height 170.[address] Muna Putnam MD Work Phone: [phone] [place] [address] 11-23-2024 06:28-0400 Body mass index (BMI) [Ratio] 24.8 kg/m2 Dr. Muna Putnam MD Work Phone: [phone] [place] [address] 11-23-2024 06:28-0400 Body weight 71.[address] Muna Putnam MD Work Phone: [phone] [place] [address] 10-08-2024 15:15-0500 Body mass index (BMI) [Ratio] 24.7 kg/m2 Dr. Muna Putnam MD Work Phone: [phone] [place] [address] 10-08-2024 15:15-0500 Body weight 71.[address] Muna Putnam MD Work Phone: [phone] [place] [address] 06-14-2023 08:32-0400 Body height 170.[address] Muna Putnam Work Phone: [phone] [place] [address] 06-14-2023 08:24-0400 Body mass index (BMI) [Ratio] 25 kg/m2 Dr. Muna Putnam Work Phone: [facility] 06-14-2023 08:24-0400 Body weight 72.[address] Muna Putnam Work Phone: [facility] 06-14-2023 08:24-0400 Diastolic blood pressure 72 mm[Hg] Dr. Muna Putnam Work Phone: [facility] 06-14-2023 08:24-0400 Systolic blood pressure 106 mm[Hg] Dr. Muna Putnam Work Phone: [facility] 06-10-2022 08:50-0400 Body height 170.[address] Muna Putnam Work Phone: [facility] Work Phone: 06-10-2022 08:50-0400 Body mass index (BMI) [Ratio] 23.8 kg/m2 Dr. Muna Putnam Work Phone: [facility] Work Phone: 06-10-2022 08:50-0400 Body weight 69.[address] Muna Putnam Work Phone: [facility] Work Phone: 06-10-2022 08:50-0400 Diastolic blood pressure 80 mm[Hg] Dr. Muna Putnam Work Phone: [facility] Work Phone: 06-10-2022 08:50-0400 Systolic blood pressure 122 mm[Hg] Dr. Muna Putnam Work Phone: [facility] Work Phone: 03-31-2017 14:31-0400 BMI (Body Mass Index) 23.43 kg/m2 Sabra Silva NP [facility] 03-31-2017 14:31-0400 Body Temperature 97.5 [degF] Sab[facility] NP [facility] 03-31-2017 14:31-0400 BP Diastolic 69 mm[Hg] Sabra Ricardo [facility] 03-31-2017 14:31-0400 BP Systolic 113 mm[Hg] Sabra Sosatings [facility] 03-31-2017 14:31-0400 Height 167.64 cm Sabra Rioss [facility] 03-31-2017 14:31-0400 Pulse (Heart Rate) 78 /min Sabra Silva [employer] [facility] 03-31-2017 14:31-0400 Respiratory Rate 16 /min Sabra Silva [facility] 03-31-2017 14:31-0400 Weight 65.86 kg Sabra Sosatings [facility] Encounters Encounter Date Encounter Type Care Provider Facility Start: 04-23-2025 End: 04-23-[address] Dominick Schaffer MD Work Phone: -[facility] Start: 04-23-2025 End: 04-23-[address] Dominick Schaffer MD -[facility] Start: 04-23-2025 End: 04-23-2025 ambulatory Dominick Schaffer Facility:[facility] Start: 03-21-2025 End: 03-21-[address] Muna Putnam MD Work Phone: -[facility] Start: 03-21-2025 End: 03-21-[address] Dominick Schaffer MD -[facility] Start: 03-21-2025 End: 03-21-2025 ambulatory Dominick Schaffer Facility:[facility] Start: 03-07-2025 ambulatory JUAN ROBB Facili ty:[facility] Start: 03-07-2025 End: 03-07-2025 Subsequent hospital visit by physician Juan Robb MD Work Phone: Ambulatory Surgery Comment on above: Encounter for screen ing for malignant neoplasm of colon [Z12.11] Start: 02-28-2025 End: 02-28-2025 Admission to same day surgery center Juan Robb MD Work Phone: Ambulatory Surgery Comment on above: bowel prep tips Start: 02-28-2025 End: 02-28-2025 E-mail encounter from caregiver Juan Robb MD Work Phone: Ambulatory Surgery Start: 02-21-2025 End: 02-21-2025 ambulatory MUNA PUTNAM Facility:[facility] Start: 02-21-2025 End: 02-21-2025 Patient encounter procedure Courtney Deras APRN.[employer] Work Phone: General Surgery Comment on above: Encounter for screen ing for malignant neoplasm of colon (Primary Dx); Family history of colon cancer in father Start: 02-20-2025 End: 02-20-2025 Chart abstracting Courtney Dersa APRN.[employer] Work Phone: General Surgery Start: 02-20-2025 End: 02-20-[address] Muna Putnam MD Work Phone: -Ultrasound [facility] Start: 02-20-2025 End: 02-20-[address] Dominick Schaffer MD -Ultrasound [facility] Work Phone: Start: 02-20-2025 End: 02-20-2025 ambulatory Dominick Schaffer Facility:[facility] Start: 02-19-2025 ambulatory Dominick Schaffer Facilit y:[facility] Start: 02-14-2025 End: 02-14-[address] Muna Putnam MD Work Phone: -Laboratory [facility] Start: 02-14-2025 End: 02-14-[address] Dominick Schaffer MD -[facility]atory [facility] Start: 02-14-2025 End: 02-14-2025 ambulatory Dominick Schaffer Facility:[facility] Start: 12-07-2024 End: 12-07-[address] Jm Rodríguez MD -[facility] Work Phone: Start: 12-07-2024 End: 12-07-2024 ambulatory Muna Putnam Facility:[facility] Start: 11-26-2024 End: 11-26-[address] Jm Rodríguez MD -[facility] Work Phone: Start: 11-26-2024 End: 11-26-2024 ambulatory Muna Putnam Facility:[facility] Start: 11-23-2024 Non-patient / Non-visit Dr. Jm grigsby MD -[facility] Start: 11-23-2024 End: 11-23-2024 Admission to same day surgery center Dr. Jm Rodríguez MD -[facility] Start: 11-23-2024 End: 11-23-[address] Muna Putnam MD Work Phone: [facility] Work Phone: Start: 10-08-2024 End: 10-08-[address] Jm Rodríguez MD -[facility] Work Phone: Start: 10-08-2024 End: 10-08-2024 ambulatory Muna S Jolindsey Facility:[facility] Start: 06-18-2024 End: 06-18-2024 ambulatory Muna S [place] Facility:[facility] Start: 06-18-2024 End: 06-18-2024 ambulatory Sabra Silva NP Facility:[facility] Start: 07-26-2023 End: 07-26-[address] Muna Putnam Work Phone: [facility] Work Phone: Start: 07-26-2023 End: 07-26-[address] Muna Putnam Work Phone: [facility]-Physical Therapy Work Phone: Start: 06-28-2023 End: 06-28-[address] Muna Putnam Work Phone: [facility] Work Phone: Start: 06-28-2023 End: 06-28-[address] Muna Putnam Work Phone: [facility]-Outpatient Bone Densitometry Work Phone: Start: 06-28-[address] [facility]acy [facility] Start: 06-14-2023 End: 06-14-[address] Muna Putnam Work Phone: [facility] Work Phone: Start: 05-03-2023 Registered Recurring [facility]-Physical Therapy Work Phone: Start: 04-29-2023 End: 04-29-2023 ambulatory [facility] Work Phone: Start: 04-29-2023 End: 04-29-2023 Patient encounter procedure [facility] Work Phone: Start: 12-20-2022 End: 12-20-2022 ambulatory [facility] Work Phone: Start: 12-20-2022 End: 12-20-2022 Discharged Recurring [facility] Start: 09-22-2022 End: 09-22-2022 Discharged Recurring [facility] Start: 06-22-2022 End: 07-14-[address] Muna Putnam Work Phone: [facility] Work Phone: Start: 06-22-2022 End: 07-14-[address] Muna Putnam Work Phone: [facility] Start: 06-22-[address] Muna lacy Work Phone: [facility] Start: 06-10-2022 End: 06-10-[address] Muna Putnam Work Phone: [facility] Work Phone: Start: 06-10-2022 End: 06-10-2022 Patient encounter procedure Dr. Muna Putnam Work Phone: [facility] Start: 05-14-2022 End: 05-14-2022 ambulatory [facility] Work Phone: Start: 05-14-2022 End: 05-14-2022 Patient encounter procedure [facility] Start: 04-26-2022 End: 04-26-2022 ambulatory [facility] Work Phone: Start: 04-26-2022 End: 04-26-2022 Patient encounter procedure [facility] Start: 04-07-2022 End: 04-07-2022 ambulatory [facility] Work Phone: Start: 04-07-2022 End: 04-07-2022 Patient encounter procedure [facility] Procedures Date Procedure Procedure Detail Performing Clinician Start: 04-23-[address] Dominick Schaffer MD Work Phone: Start: 03-21-2025 Total iron binding capacity measurement Dr. Muna Putnam MD Work Phone: Start: 03-07-2025 Colonoscopy flx dx w/collj spec when pfrmd Courtney Deras CINDER [employer]ON.[employer] Work Phone: Start: 03-07-2025 Colonoscopy Juan Robb MD Work Phone: Start: 02-20-2025 US scan of thyroid Dr. Muna Putnam MD Work Phone: Start: 02-14-[address] Muna Putnam MD Work Phone: Comment on above: Thyroglobulin Antibody measured by [place] hyatt CoulterMethodologyIt should be noted that the presence of thyroglobulinantibodies may not be pathogenic nor diagnostic, especiallyat very low levels. The assay hospice rn has found thatfour percent of individuals without evidence of thyroiddisease or autoimmunity will have positive TgAb levels upto 4 IU/mL.Performed at: [address] [id number] Director: Donte Sutherland PhD, Phone: [phone] Start: 02-14-2025 Total iron binding capacity measurement Dr. Muna Putnam MD Work Phone: Start: 11-23-2024 Release of trigger finger Dr. Muna urias MD Work Phone: Start: 06-28-2023 Dual energy X-ray absorptiometry Dr. Muna Putnam Work Phone: Start: 06-14-[address] uMna Putnam Work Phone: Start: 04-29-2023 Plain X-ray of shoulder Start: 06-10-[address] Muna Putnam Work Phone: Start: 04-07-2022 Radiography of ankle Start: 03-31-2017 Gynecologic examination Routine gynecological examination Myah Ch RN RN Start: 03-31-2017 Hormone replacement therapy Hormone replacement therapy Myah Ch RN RN Start: 03-31-2017 Screening mammography Mammogram yearly screening Myah Ch RN RN Start: 03-14-2015 Lipid 1996 panel - Serum or Plasma Courtney Deras APRN.CNP Work Phone: Start: 02-21-2012 Colonoscopy Courtney Deras APRN.CNP Work Phone: Plan of Treatment Date Care Activity Detail Author Start: 01-05-2036 RSV Vaccine (1 - 1-d ose 75+ series) RSV Vaccine (1 - 1-dose 75+ series) [facility] Start: 01-16-2034 Urine microalbumin profile DTaP,Tdap,Td Vaccine (3 - Td or Tdap) [facility] Start: 03-07-2030 Screening for malign ant neoplasm of colon [facility] Start: 04-15-2025 Influenza vaccination Influenza Vacc ine (#1) [facility] Start: 03-07-2025 End: 03-07-2025 Patient encounter procedure 03/07/2025 1:00 PM EDT Appointment Ambulatory Surgery [address] [place], [place] [id number] Juan Robb MD [address] [place] [address] Ambulatory Surgery Start: 02-21-2025 End: 02-21-2025 Patient encounter procedure 02/21/2025 8:30 AM EDT Office Visit General Surgery [address] [place] [address] Courtney Deras APRN.[employer] WORK[employer] [address] [place] [address] consult-colonoscopy Last colonoscopy 2011 [facility] General Surgery Comment on above: consult-colonoscopy Last colonoscopy 2011 [facility] Start: 02-20-2025 US scan of thyroid Thyroid [facility] Start: 02-20-2025 US Thyroid gland [facility] Start: 11-23-2024 Anes nerve muscle td n fascia&bursa forearm wrist ANESTH LOWER ARM SURGERY [facility] Start: 11-23-2024 Tendon sheath incision INCISE FINGER TENDON SHEATH [facility] Start: 11-23-2024 Patient discharge [facility] Start: 11-23-2024 Application of ice collar, cap or bag [facility] Start: 11-23-2024 Elevation of affecte d extremity [facility] Start: 11-23-2024 Assessment of risk o f venous thromboembolism [facility] Start: 11-23-2024 Catheterization of vein [facility] Start: 11-23-2024 Continuous positive airway pressure ventilation treatment [facility] Start: 11-23-2024 Following clinical pathway protocol [facility] Start: 11-23-2024 Incentive spirometry [facility] Start: 11-23-2024 Introduction of urin jaguar catheter [facility] Start: 11-23-2024 Vital signs measurements [facility] Start: 11-23-2024 End: 11-23-2024 [facility] Start: 04-15-2024 Covid-19 Vaccine ( season) Covid-19 Vaccine ( season) [facility] Start: 03-14-2020 Lipid panel Lipid Screening [facility] Start: 03-14-2018 Diabetes Screening Diabetes Screenmackenzie manley [facility] Start: 03-31-2017 End: 03-31-2017 Appointment Appointment [facility] Start: 03-31-2017 End: 03-31-2017 Mammogram, screening Mammogram, Screening, both breasts [facility] Start: 03-30-2017 Screening for malign ant neoplasm of breast Mammogram Screening [facility] Start: 02-20-2017 Screening for malign ant neoplasm of colon [facility] Start: 02-01-2015 Screening for malign ant neoplasm of colon Fecal Occult Blood [facility] Start: 2011 Pneumococcal Vaccine : 50+ (1 of 1 - PCV) Pneumococcal Vaccine: 50+ (1 of 1 - PCV) [facility] Start: 2011 Shingrix Vaccine (1 of 2) Vargas grix Vaccine (1 of 2) [facility] Start: 2006 Screening for malign ant neoplasm of colon [facility] Start: 01-05-1980 Urine microalbumin profile DTaP,Tdap,Td Vaccine (1 - Tdap) [facility] Start: 1979 Anxiety Screening Anxiety Screening [facility] Start: 1979 Depression Screening Depression Scre ening [facility] Start: 1979 Hepatitis C screening Hepatitis C [facility] Start: 1979 HIV screening HIV Screening [facility] Patient Education What Is Trigge r Finger? [facility] Work Phone: Patient referral [facility] Work Phone: End: 02-21-2026 Screening colonoscopy COLONOSCOPY SCREENING Endoscopy Routine Encounter for screening for malignant neoplasm of colon Family history of colon cancer in father 1 Occurrences starting 02/21/2025 until 02/21/2026 [facility] Work Phone: Comment on above: 1 Occurrences starti ng 02/21/2025 until 02/21/2026 Immunizations Immunization Date Immunization Notes Care Provider Devante earl 05-11-2024 influenza virus vaccine, unspecified formulation Courtney Deras APRN.CNP Work Phone: [facility] 08-23-2013 Influenza virus vaccine [facility] Payers Date Payer Category Payer Private Health Insurance [facility] CHO [employer] PLUS [id number] 2024 Private Health Insurance [id number] 2024 Self-pay [id number] Unknown [id number] Unknown [facility] [id number] Unknown [id number] Unknown [id number] Unknown [id number] Unknown [id number] Unknown [id number] Unknown [id number] Unknown [id number] Unknown [id number] Unknown [id number] Unknown [id number] Unknown [id number] Unknown [id number] Social History Date Type Detail Facility Start: 06-02-2021 End: 06-14-2023 Tobacco smoking status KSIS Unknown if ever smoked [facility] Start: 1960 Sex Assigned At Female [facility] Start: 05-03-2018 Non-smoker [facility] Start: 01-21-2012 End: 11-14-2024 Tobacco smoking status KSIS Never smoked tobacco (finding) [facility] Start: 11-23-2024 Sex Female (finding) [facility] Start: 01-21-2012 Tobacco use and exposure Smokeless tobacco non-user [facility] Start: 02-20-2025 End: 03-07-2025 Alcoholic beverage intake Current drinker of alcohol (finding) [facility] Start: 02-20-2025 End: 03-07-2025 History of Social function [facility] Start: 02-20-2025 End: 03-07-2025 Tobacco use panel [facility] Start: 02-20-2025 Alcohol Comment Occasionally/rarely [facility] Start: 1960 Sex assigned at Not on file [facility] NEGATED: Highlighted row Not [facility] Goals Date Patient Goal Desired Activity /State Functional Status Date Assessment Result Facility 03-13-2015 Are you deaf, or do you have serious difficulty hearing No 03/13/2015 10:10 AM Ruby Hickey MA No [facility] 03-13-2015 Are you blind, or do you have serious difficulty seeing, even when wearing glasses No 03/13/2015 10:10 AM Ruby Hickey MA No [facility] 03-13-2015 Do you have serious difficulty walking or climbing stairs No 03/13/2015 10:10 AM Ruby Hickey MA No [facility] 03-13-2015 Do you have difficul ty dressing or bathing No 03/13/2015 10:10 AM EDT Ruby Frazier MA No [facility] 03-13-2015 Because of a physica l, mental, or emotional condition, do you have difficulty doing errands alone such as visiting a physician's office or shopping No 03/13/2015 10:10 AM EDT Ruby Frazier MA No [facility] Mental Status Date Assessment Result Facility 11-23-2024 Cognitive function Voice/Name [facility] Work Phone: 03-13-2015 Because of a physica l, mental, or emotional condition, do you have serious difficulty concentrating, remembering, or making decisions No 03/13/2015 10:10 AM EDT Ruby Frazier MA No [facility] Clinical Notes 07-26-2023 to 03-07-2025 Discharge Instr - Nursing - Zuleika Santos RN - 03/07/2025 12:28 PM EDTDischarge Instr - Nursing - Zuleika Santos RN - 03/07/2025 12:28 PM EDTPJuan clarke MD - 03/07/2025 12:15 PM EDT Note Date & Type Note Facility 03-07-2025 Note Formatting of this n ote might be different from the original. The patient received a copy of Colonoscopy discharge instructions that contain information for how to contact the physician who performed the procedure and when to seek medical care. [facility] 03-07-2025 Miscellaneous Notes The patient received a copy of Colonoscopy discharge instructions that contain information for how to contact the physician who performed the procedure and when to seek medical care. documented in this encounter [facility] 03-07-2025 History and physical note HISTORY AND PHYSICAL Madelyn Hayes : 1960 REFERRING PHYSICIAN: No referring provider defined for this encounter. CHIEF COMPLAINT: Patient presents with: Consult: Last colonoscopy 2017, denies symptoms. Hgb is low HPI: Madelyn is a 65 year old female referred for endoscopy. Madelyn notes due for screening colonoscopy-family hx of colon cancer in father. Madelyn denies abdominal pain. Madelyn denies diarrhea. Madelyn denies constipation. Madelyn notes a change in bowel habits. -sometimes stool is narrow -intermittent x the last couple of years Madelyn denies melena. Madelyn denies bright red blood per rectum. Madelyn denies hemorrhoids. Madelyn denies heartburn. Madelyn denies dysphagia. Madelyn denies a history of ulcers/ peptic ulcer disease. Madelyn has undergone prior endoscopy. Last colonoscopy was 04/[address] Robb at [facility]. Sedation: MAC Impression: - The examination was otherwise normal on direct and retroflexion views. - No specimens collected. CURRENT MEDICATIONS Current Outpatient Medications Medication Sig pramipexole (MIRAPEX) 0.5 mg tablet Take 0.5 mg by mouth daily at bedtime. ferrous sulfate 325 mg (65 mg iron) tablet Take 325 mg by mouth two times a day. estradiol (ESTRACE) 0.01 % (0.1 mg/gram) vaginal cream Use vaginally two times a week. Estradiol (VIVELLE-DOT) 0.0375 mg/24 hr Apply 1 Patch as directed twice a week. TWICE WEEKLY valacyclovir (VALTREX) 1 g ORAL Tab Take 1 g by mouth as needed. MULTIVITAMIN TAB Take one(1) tablet daily. No current facility-administered medications for this visit. ALLERGIES: Ampicillin PAST MEDICAL HISTORY PAST MEDICAL HISTORY Diagnosis Date Breast mass 08/15/2002 Rt breast-- benign Family history of colon cancer History of iron deficiency History of restless legs syndrome Iron deficiency anemia 02/14/2025 Mixed stress and urge incontinence Symptomatic menopausal or female climacteric states Thyroid nodule Urge incontinence 2 minipads a day Urgency of urination PAST SURGICAL HISTORY PAST SURGICAL HISTORY Procedure Laterality Date COLONOSCOPY FLX DX W/COLLJ SPEC WHEN PFRMD 02/21/2012 Return in 5 years (-2016) COLONOSCOPY SCREENING N/A 2018 HYSTEROSCOPY ENDOMETRIAL ABLATION 11/22/2000 PAST SURGICAL HISTORY OF 08/15/2002 Rt breast stereo benign RPR 1ST INGUN HRNA FULL TERM INFT <6 MO RDC right inguinal VAGINAL HYSTERECTOMY UTERUS 250 GM/< 02/12/2003 [facility] PROCEDURE Left 11/23/2024 Dr. Rodríguez, left middle FAMILY HISTORY FAMILY HISTORY Problem Relation Age of Onset Osteoporosis Mother polymalasia rheumatica, / with paralysis of stomach Osteoporosis Sister Osteoporosis Sister Heart Father skin cancer Colon Cancer Father Breast Cancer Paternal Grandmother in her 70s other (osteoporis [Other]) Sister 55 other (brain tumor [Other]) Sister SOCIAL HISTORY Social History Tobacco Use Smoking status: Never Smokeless tobacco: Never Substance Use Topics Alcohol use: Yes Comment: Occasionally/rarely Drug use: No REVIEW OF SYMPTOMS: REVIEW OF SYSTEMS: General: The patient denies fatigue, denies weight loss, denies weight gain, + feeling hot, and feelings of cold. Eyes: The patient denies glaucoma, denies eye injury/surgery, + glasses or contacts. Ear/Nose/Throat: The patient denies allergies, denies hayfever, denies ear infections, and denies bloody noses. Cardiovascular: The patient denies chest pain, denies heart disease, denies high blood pressure, denies high cholesterol, and denies poor circulation. Respiratory: The patient denies tuberculosis, denies pneumonia, denies frequent cough, denies shortness of breath, and denies coughing up blood. Gastrointestinal: The patient denies difficulty swallowing, denies acid reflux, denies ulcers, denies jaundice/hepatitis, denies gallbladder problems, denies vomiting, denies black or tarry stools, denies hemorrhoids, denies bleeding from rectum, denies diverticulitis, denies constipation, denies diarrhea, denies loss of stool control, and + hernias. Kidney/Bladder: The patient denies kidney stones, denies urine infections, and denies bloody urine. Skin: The patient + a history of skin cancer, denies bleeding/changing moles, and denies a history of skin rash. Neurologic: The patient denies a history of epilepsy/convulsions, + headaches, denies head/spinal injuries, and denies stroke/TIA. Psychiatric: The patient denies psychiatric medications, denies depression, and denies voices. Endocrine: The patient denies thyroid disorders, denies diabetes, and denies hormonal problems. Hematologic: The patient denies a history of bruising, denies bleeding, and + anemia. Infections: The patient denies a history of measles and mumps, denies rheumatic fever, and denies sexually transmitted diseases. Musculoskeletal: The patient denies back pain/injury, denies back problems, denies sciatica, denies knee/foot trouble, denies arthritis, or denies gout. PHYSICAL EXAMINATION: General: The patient is 65 year old, female well nourished, well hydrated in no acute distress. The patient is oriented to time, place, and person. VITALS: Blood pressure 123/71, pulse 88, height 170.2 cm (5' 7), weight 70.6 kg (155 lb 9.6 oz). Body mass index is 24.37 kg/m . HEENT: Normal cephalic, ataumatic, pupils are equally round, sclera are anicteric, mucous membranes are moist, oropharynx is clear. Neck has no masses or asymmetry . Respiratory: Clear to auscultation. Cardiac: Regular rate and rhythm. Abdominal exam: Soft, nontender, with no palpable masses. No hepatosplenomegaly. No palpable hernias. Extremities: no clubbing or cyanosis LABORATORY VALUES: As Noted RADIOLOGIC STUDIES: As Noted Assessment IMPRESSION: screen for colon cancer, family history of colon cancer in father PLAN: I have reviewed my findings with the surgeon. Will plan for lower endoscopy. We discussed the risks and benefits of the planned endoscopy in terms understandable to the patient. I have informed the patient that complications can occur including failure to complete the endoscopy and perforation. Madelyn had the opportunity to ask questions concerning the planned endoscopy. Madelyn freely consents to surgery. I plan to use miraLAX bowel preparation I have explained to the patient the difference between IV conscious sedation and MAC anesthesia - and I have offered either, according to the patient's wishes. I have explained that with IV conscious sedation there is no anesthesia provider available and therefore there is a limitation of the amount of IV medications that can be given and that the patient may wake up in the middle of the procedure and/or experience pain/discomfort during the procedure. Further discussion was done and the patient was given the opportunity to ask questions and all questions were answered. Madelyn chooses IV conscious sedation. Madelyn was counseled that if there are changes in his/her medical condition, to let the office know if surgery should proceed. If there are changes in patient's medical condition from time of this encounter to the day of the procedure that preclude anesthesia, patient may have procedure cancelled for patient's safety. Diagnoses: (Z12.11) Encounter for screening for malignant neoplasm of colon (primary encounter diagnosis) (Z80.0) Family history of colon cancer in father Portions of this documentation were copied and pasted from previous office visit notes in order to provide a cohesive continuity of the history. The note has been reviewed and edited and updated as necessary. Courtney Deras APRN.[employer] WORKER UPDATED HISTORY AND PHYSICAL EXAMINATION SERVICE DATE: 03/07/2025 SERVICE TIME: 11:48 AM PHYSICAL EXAM MUST BE COMPLETED ON ADMISSION The History and Physical (completed in the past 30 days) has been reviewed and the patient has been examined. The contents accurately reflect the patient's condition with the following additions or revisions since the H&P was completed. Examination indicates no changes. This H&P can be found in the attached. SIGNATURE: Juan Robb III, MD PATIENT NAME: Madelyn Hayes DATE: March 07, 2025 TIME: 11:48 AM T [facility] 03-07-2025 History and physical note HISTORY AND PHYSICAL Madelyn Hayes : 1960 REFERRING PHYSICIAN: No referring provider defined for this encounter. CHIEF COMPLAINT: Patient presents with: Consult: Last colonoscopy 2017, denies symptoms. Hgb is low HPI: Madelyn is a 65 year old female referred for endoscopy. Madelyn notes due for screening colonoscopy-family hx of colon cancer in father. Madelyn denies abdominal pain. Madelyn denies diarrhea. Madelyn denies constipation. Madelyn notes a change in bowel habits. -sometimes stool is narrow -intermittent x the last couple of years Madelyn denies melena. Madelyn denies bright red blood per rectum. Madelyn denies hemorrhoids. Madelyn denies heartburn. Madelyn denies dysphagia. Madelyn denies a history of ulcers/ peptic ulcer disease. Madelyn has undergone prior endoscopy. Last colonoscopy was 04/[address] Robb at [facility]. Sedation: MAC Impression: - The examination was otherwise normal on direct and retroflexion views. - No specimens collected. CURRENT MEDICATIONS Current Outpatient Medications Medication Sig pramipexole (MIRAPEX) 0.5 mg tablet Take 0.5 mg by mouth daily at bedtime. ferrous sulfate 325 mg (65 mg iron) tablet Take 325 mg by mouth two times a day. estradiol (ESTRACE) 0.01 % (0.1 mg/gram) vaginal cream Use vaginally two times a week. Estradiol (VIVELLE-DOT) 0.0375 mg/24 hr Apply 1 Patch as directed twice a week. TWICE WEEKLY valacyclovir (VALTREX) 1 g ORAL Tab Take 1 g by mouth as needed. MULTIVITAMIN TAB Take one(1) tablet daily. No current facility-administered medications for this visit. ALLERGIES: Ampicillin PAST MEDICAL HISTORY PAST MEDICAL HISTORY Diagnosis Date Breast mass 08/15/2002 Rt breast-- benign Family history of colon cancer History of iron deficiency History of restless legs syndrome Iron deficiency anemia 02/14/2025 Mixed stress and urge incontinence Symptomatic menopausal or female climacteric states Thyroid nodule Urge incontinence 2 minipads a day Urgency of urination PAST SURGICAL HISTORY PAST SURGICAL HISTORY Procedure Laterality Date COLONOSCOPY FLX DX W/COLLJ SPEC WHEN PFRMD 02/21/2012 Return in 5 years (-2016) COLONOSCOPY SCREENING N/A 2018 HYSTEROSCOPY ENDOMETRIAL ABLATION 11/22/2000 PAST SURGICAL HISTORY OF 08/15/2002 Rt breast stereo benign RPR 1ST INGUN HRNA FULL TERM INFT <6 MO RDC right inguinal VAGINAL HYSTERECTOMY UTERUS 250 GM/< 02/12/2003 [facility] PROCEDURE Left 11/23/2024 Dr. Rodríguez, left middle FAMILY HISTORY FAMILY HISTORY Problem Relation Age of Onset Osteoporosis Mother polymalasia rheumatica, / with paralysis of stomach Osteoporosis Sister Osteoporosis Sister Heart Father skin cancer Colon Cancer Father Breast Cancer Paternal Grandmother in her 70s other (osteoporis [Other]) Sister 55 other (brain tumor [Other]) Sister SOCIAL HISTORY Social History Tobacco Use Smoking status: Never Smokeless tobacco: Never Substance Use Topics Alcohol use: Yes Comment: Occasionally/rarely Drug use: No REVIEW OF SYMPTOMS: REVIEW OF SYSTEMS: General: The patient denies fatigue, denies weight loss, denies weight gain, + feeling hot, and feelings of cold. Eyes: The patient denies glaucoma, denies eye injury/surgery, + glasses or contacts. Ear/Nose/Throat: The patient denies allergies, denies hayfever, denies ear infections, and denies bloody noses. Cardiovascular: The patient denies chest pain, denies heart disease, denies high blood pressure, denies high cholesterol, and denies poor circulation. Respiratory: The patient denies tuberculosis, denies pneumonia, denies frequent cough, denies shortness of breath, and denies coughing up blood. Gastrointestinal: The patient denies difficulty swallowing, denies acid reflux, denies ulcers, denies jaundice/hepatitis, denies gallbladder problems, denies vomiting, denies black or tarry stools, denies hemorrhoids, denies bleeding from rectum, denies diverticulitis, denies constipation, denies diarrhea, denies loss of stool control, and + hernias. Kidney/Bladder: The patient denies kidney stones, denies urine infections, and denies bloody urine. Skin: The patient + a history of skin cancer, denies bleeding/changing moles, and denies a history of skin rash. Neurologic: The patient denies a history of epilepsy/convulsions, + headaches, denies head/spinal injuries, and denies stroke/TIA. Psychiatric: The patient denies psychiatric medications, denies depression, and denies voices. Endocrine: The patient denies thyroid disorders, denies diabetes, and denies hormonal problems. Hematologic: The patient denies a history of bruising, denies bleeding, and + anemia. Infections: The patient denies a history of measles and mumps, denies rheumatic fever, and denies sexually transmitted diseases. Musculoskeletal: The patient denies back pain/injury, denies back problems, denies sciatica, denies knee/foot trouble, denies arthritis, or denies gout. PHYSICAL EXAMINATION: General: The patient is 65 year old, female well nourished, well hydrated in no acute distress. The patient is oriented to time, place, and person. VITALS: Blood pressure 123/71, pulse 88, height 170.2 cm (5' 7), weight 70.6 kg (155 lb 9.6 oz). Body mass index is 24.37 kg/m . HEENT: Normal cephalic, ataumatic, pupils are equally round, sclera are anicteric, mucous membranes are moist, oropharynx is clear. Neck has no masses or asymmetry . Respiratory: Clear to auscultation. Cardiac: Regular rate and rhythm. Abdominal exam: Soft, nontender, with no palpable masses. No hepatosplenomegaly. No palpable hernias. Extremities: no clubbing or cyanosis LABORATORY VALUES: As Noted RADIOLOGIC STUDIES: As Noted Assessment IMPRESSION: screen for colon cancer, family history of colon cancer in father PLAN: I have reviewed my findings with the surgeon. Will plan for lower endoscopy. We discussed the risks and benefits of the planned endoscopy in terms understandable to the patient. I have informed the patient that complications can occur including failure to complete the endoscopy and perforation. Madelyn had the opportunity to ask questions concerning the planned endoscopy. Madelyn freely consents to surgery. I plan to use miraLAX bowel preparation I have explained to the patient the difference between IV conscious sedation and MAC anesthesia - and I have offered either, according to the patient's wishes. I have explained that with IV conscious sedation there is no anesthesia provider available and therefore there is a limitation of the amount of IV medications that can be given and that the patient may wake up in the middle of the procedure and/or experience pain/discomfort during the procedure. Further discussion was done and the patient was given the opportunity to ask questions and all questions were answered. Madelyn chooses IV conscious sedation. Madelyn was counseled that if there are changes in his/her medical condition, to let the office know if surgery should proceed. If there are changes in patient's medical condition from time of this encounter to the day of the procedure that preclude anesthesia, patient may have procedure cancelled for patient's safety. Diagnoses: (Z12.11) Encounter for screening for malignant neoplasm of colon (primary encounter diagnosis) (Z80.0) Family history of colon cancer in father Portions of this documentation were copied and pasted from previous office visit notes in order to provide a cohesive continuity of the history. The note has been reviewed and edited and updated as necessary. Courtney Deras APRN.SORTING COWS WORKER UPDATED HISTORY AND PHYSICAL EXAMINATION SERVICE DATE: 03/07/2025 SERVICE TIME: 11:48 AM PHYSICAL EXAM MUST BE COMPLETED ON ADMISSION The History and Physical (completed in the past 30 days) has been reviewed and the patient has been examined. The contents accurately reflect the patient's condition with the following additions or revisions since the H&P was completed. Examination indicates no changes. This H&P can be found in the attached. SIGNATURE: Juan Robb III, MD PATIENT NAME: Madelyn Hayes DATE: March 07, 2025 TIME: 11:48 AM documented in this encounter [facility] 02-21-2025 Instructions Courtney Deras APRN.SORTING COWS WORKER - 02/21/2025 8:49 AM EDT Images from the original note were not included. Miralax/Dulcolax Bowel Prep For this bowel preparation you will need to lease picker the following medications at any pharmacy. Four (4) Dulcolax tablets (generic name Bisacodyl) 238 Gram (or 8.3 oz.) Bottle of Miralax (Generic name Polyethylene Glycol) A responsible family member or friend MUST be available to drive you home after your procedure. You are NOT ALLOWED to drive, take a taxi, or leave the [facility] ALONE. If you do NOT have a responsible cdl dedicated truck driver (family member or friend) to take you home, your exam cannot be done with sedation and WILL BE cancelled. Please remove all jewelry if possible. The [facility] or [facility] (depending on where your procedure is scheduled) will call you THE DAY BEFORE YOUR PROCEDURE with your arrival time. The time in My Chart is just an estimate. Please arrive at the time you are told the day before. Medication BLOOD THINNERS - Blood thinner medication may need to be stopped or adjusted before your colonoscopy, such as Coumadin, Plavix, Paradaxa and Eliquis. - Contact prescribing physician regarding holding any blood thinner medication. If you were seen in the general surgery office, please follow their instructions as to if and when to hold any blood thinners. If you are having this procedure done by the request of any other providers and were NOT seen in our office, please contact your physician's office to see if you need to hold any medication prior to your procedure. INSULIN and/or DIABETIC MEDICATION -Please call the doctor that monitors your glucose levels. Your insulin dosage needs to be adjusted due to the diet restrictions required with this bowl preparation (please bring your diabetic medication with you on the day of your procedure). If you are on any of the listed medications below, please follow the instructions as to when to stop your medications. If you have any questions or concerns regarding your diabetic medication, please contact your ordering providers office. Failure to hold the medications below could lead to the cancellation of your procedure. Diabetic Medication Day Prior to Surgery Day of Surgery Communication Oral hypoglycemics (except SGLT2 inhibitors) Continue Hold all on DOS Nurse verifies patient did not take oral medications. Blood glucose checked in preoperative area SGLT2 inhibitors Canagliflozin (Invokana) Dapagliflozin (Farxiga) Empaglifozin (Jardiance) Hold 3 days preoperatively Hold Nurse verifies patient has not taken the medication 3 days preoperatively and has held DOS. Blood glucose check on arrival. SGLT2 inhibitor Ertugliflozin (Steglatro) Hold 4 days preoperatively Hold Nurse verifies patient has not taken the medication 4 days preoperatively and has held DOS. Blood glucose check on arrival. Non-insulin injectables (Except GLP-1 agonists) Take normal dose Hold all Nurse verifies patient has held. Blood glucose check on arrival GLP-1 Agonists (Injected) Semaglutide (Ozempic/Wegovy) Lixisenatide (Adlyxin) Tirzepatide (Mounjaro/Zepbound) Dulaglutide (Trulicity) Hold the week prior to surgery Hold Nurse verifies time of last dose and documents. Assess for symptoms of satiety or nausea. If patient took the week prior to surgery or on DOS, contact the anesthesiologist. GLP-1 Agonists (Daily Injected) Exenatide (Bydureon/ Byetta) Liraglutide (Victoza/Saxenda) Insulin glargine / lixisenatide (Soliqua) Continue Hold on DOS GLP-1 Agonists (oral) Semaglutide (Reybelsus) Continue Hold on DOS Nurse verifies time of last dose and documents. Assess for symptoms of satiety or nausea. If patient took DOS, contact the anesthesiologist. Insulin pump Follow protocol Follow protocol Nurse verifies settings. Blood glucose check on arrival Long- or intermediate-acting insulin (Levemir, Lantus, NPH etc.) Take 75% of normal dose the night before surgery if possible Check fasting AM glucose. If 200 or greater, take half the prescribed dose. If under 200, hold AM dose. Nurse verifies dose and time. Blood glucose check on arrival. If you take GLP-1 agonists such as semaglutide (Ozempic, Wegovy, Rybelsus), dulaglutide (Trulicity), liraglutide (Victoza, Saxenda), exenatide (Byetta, Bydureon), or lixisenatide (Adylyxin), tirzepatide (MOUNJARO). if you take medication once or twice daily, do not take your medication for 1 day prior to your procedure if you take these medications weekly, do not take your medication the week ( hold the prior week's dose) before your procedure If you take aspirin, take it and ALL other medication prescribed by your doctor unless told otherwise by either the physician's office or Pre-Admission testing if having procedure done in a hospital setting (PACC) with a small sip of water only. You may take over the counter medications if you have a headache. TAKE ALL BLOOD PRESSURE MEDICATION THE MORNING OF THE PROCEDURE. Failure to take usual morning blood pressure meds may result in cancellation of the procedure if hypertensive. Hold erectile dysfunction medications for 48 hrs. prior to the procedure. Five (5) days before your colonoscopy Do not take medications that stop Diarrhea - Imodium, Kaopectate, or Pepto Bismol Do NOT take fiber supplements - Metamucil, Citrucel, FiberCon Do NOT take products that contain iron (check vitamin label) Two (2) to three (3) days before your colonoscopy DO NOT EAT HIGH FIBER FOODS No beans, seeds (flax, sunflower, quinoa), nuts, popcorn, multigrain bread salad/vegetables, or fresh and dried fruit. Do not eat red meat 3 days before your procedure. YOU MAY EAT Lean Chicken breast, fish, eggs, and soup YOU MUST BE ON CLEAR LIQUIDS FOR 2 FULL DAYS PRIOR TO PROCEDURE Two (2) Days before your colonoscopy ONLY DRINK CLEAR LIQUIDS for 2 DAYs BEFORE YOUR COLONOSCOPY. DO NOT EAT ANY SOLID FOODS. Drink at least eight (8) ounces of clear liquids every hour after waking up. Clear fluids include: Water, apple juice, white grape juice, broth (beef, chicken or vegetable), coffee and/or tea (NO DAIRY, MILK OR CREAMER) clear carbonated beverages (sprite, 7-up, reagan-kristy), Gatorade, or other sport drinks, Jesus-Aid, Jell-O, Gummy Bears and popsicles. NOTHING RED IN COLOR. DO NOT DRINK ALCOHOL the day before or the day of your procedure. DAY 1 (2 days before your colonoscopy) Clear Liquids all day, you may have water, coffee or tea- NO DAIRY, Clear broth (Beef, Chicken or vegetable) Clear carbonated beverages, apple juice, white grape juice , Gatorade, Jell-O, Jesus-Aid, and popsicles. NO DAIRY, TOMATO, OR ORANGE JUICE. NO RED OR PURPLE! DAY 2 - (day before your colonoscopy) SAME DAY 1, Continue clear fluids and then follow the instructions below~ 8:00 AM - May Mix the Miralax prep with 64 oz. of Gatorade or any of the clear fluids listed above and place in fridge. 1:00 PM - Take 2 Dulcolax Tablets with 8oz of water 3:00 PM - Start to drink the Miralax mixture. - Finish by midnight 4:00 PM - Take 2 Dulcolax tablets with 8oz of water. You may continue to drink clear liquids while you are taking your prep and after you finish as long as it is before midnight. Drink lots of fluids so you don't become dehydrated. Nothing to drink after midnight unless instructed otherwise by nursing staff and/or physician. Please remember to take your normal medications the morning of your procedure with a small sip of water especially your blood pressure medications. If you are diabetic, you need to contact your physicians regarding how to take your diabetic medications and/or insulin during the prepping period and the day of the procedure. The times above are a general guide. You may change the times if needed to accommodate your schedule. Example, instead of taking your first step at 1 PM you may take your first step at 6 PM. Your time frames would be: 6 PM take 2 Dulcolax tablets, at 8 PM you would start drinking the Miralax mixture and at 9 PM you would take two more Dulcolax tablets. Any questions please call [phone] or [phone] and ask for the general surgery nurses. What is a colonoscopy? A colonoscopy is an outpatient procedure in which the inside of the large intestine (colon and rectum) is examined. A colonoscopy is commonly used to evaluate gastrointestinal symptoms, such as rectal and intestinal bleeding, abdominal pain, or change in bowel habits. Colonoscopies are also performed in individuals without symptoms to check for colorectal polyps or cancer. A screening colonoscopy is recommended for anyone 50 years of age or older, and for anyone with parents, siblings, or children with a history of colorectal cancer or polyps. What happens before a colonoscopy? To have a successful colonoscopy, your bowel must be empty so that your physician can clearly view the colon. To do this, it is very important to read and follow all of the instructions given to you at least 2 weeks BEFORE your exam. If your bowel is not empty, your colonoscopy will not be successful and may have to be repeated. If you feel nauseated or vomit while taking the bowel preparation, wait 30 minutes before drinking more fluid and start with small sips of solution. Some activity (such as walking) may help decrease the nausea you are feeling. If the nausea persist, please contact the office at [phone] and ask for the provider's office that scheduled your colonoscopy or nurse commercial subcontractor at [phone]. You may experience skin irritation around the anus due to the passage of liquid stool. To prevent and treat skin irritation you should: Apply Vaseline or Desitin ointment to the skin around the anus before drinking the bowel preparation medications. These products can be purchased at any drugstore. Wipe the skin after each bowel movement with disposable wet wipes instead of toilet paper. These are found in the toilet paper area of the store. Sit in a bathtub filled with warm water for 10-15 minutes after you finish passing a stool; after soaking blot the skin dry with a soft cloth, apply Vaseline or Desitin ointment to the anal area, and place a cotton ball just outside your anus to absorb any leaking fluid. What happens during a Colonoscopy? During a colonoscopy, an experienced physician uses a colonoscope (a long, flexible instrument about inch in diameter) to view the lining of the colon, the colonscope is inserted into the rectum and advanced through the large intestine. If necessary during a colonoscopy, small amounts of tissue can be removed for analysis (biopsy) and polyps can be identifies and entirely removed. In many cases, a colonoscopy allows accurate diagnosis and treatment of colorectal problems without the need for a major operation. You are asked to wear a hospital gown and an IV will be started You are given a pain reliever and sedative intravenously (in your vein). You will feel relaxed and somewhat drowsy You will lie on your left side, with your knees drawn up towards your chest A small amount of air is used to expand the colon so the physicians can see the colon [place]. You may feel mild cramping during the procedure. Cramping can be reduced by taking slow, deep breaths. The colonoscope is slowly withdrawn while the lining of your bowel is carefully examined. The procedure last from approximately 30-60 min. What happens after a Colonoscopy? You will stay in a recovery room for observation until you are ready for discharge You may feel some cramping and/or a sensation of having gas, but this quickly passes If sedation has been given, a responsible family member or friend MUST drive you home. Avoid alcohol, driving and operating machinery for 24 hrs. following the procedure. Unless otherwise instructed, you may immediately return to your normal diet. We recommend you wait until the day after your procedure to resume normal activities. If Polyps were removed or a biopsy was taken, the physicians performing the colonoscopy will tell you when it is safe to resume taking your blood thinners. If a biopsy was taken or if a polyp was removed, you will notice a little amount of rectal bleeding for 1-2 days after the procedure. If you have a large amount of rectal bleeding, high or persistent fever, or severe abdominal pain within the next 2 weeks, please go to your local emergency room and call the physician who performed your exam. documented in this encounter [facility] 02-21-2025 History of Presen t illness Narrative HISTORY AND PHYSICAL Madelyn Hayes : 1960 REFERRING PHYSICIAN: No referring provider defined for this encounter. CHIEF COMPLAINT: Patient presents with: Consult: Last colonoscopy 2017, denies symptoms. Hgb is low HPI: Madelyn is a 65 year old female referred for endoscopy. Madelyn notes due for screening colonoscopy-family hx of colon cancer in father. Madelyn denies abdominal pain. Madelyn denies diarrhea. Madelyn denies constipation. Madelyn notes a change in bowel habits. -sometimes stool is narrow -intermittent x the last couple of years Madelyn denies melena. Madelyn denies bright red blood per rectum. Madelyn denies hemorrhoids. Madelyn denies heartburn. Madelyn denies dysphagia. Madelyn denies a history of ulcers/ peptic ulcer disease. Madelyn has undergone prior endoscopy. Last colonoscopy was 04/[address] Robb at [facility]. Sedation: MAC Impression: - The examination was otherwise normal on direct and retroflexion views. - No specimens collected. Current Outpatient Medications Medication Sig pramipexole (MIRAPEX) 0.5 mg tablet Take 0.5 mg by mouth daily at bedtime. ferrous sulfate 325 mg (65 mg iron) tablet Take 325 mg by mouth two times a day. estradiol (ESTRACE) 0.01 % (0.1 mg/gram) vaginal cream Use vaginally two times a week. Estradiol (VIVELLE-DOT) 0.0375 mg/24 hr Apply 1 Patch as directed twice a week. TWICE WEEKLY valacyclovir (VALTREX) 1 g ORAL Tab Take 1 g by mouth as needed. MULTIVITAMIN TAB Take one(1) tablet daily. No current facility-administered medications for this visit. ALLERGIES: Ampicillin PAST MEDICAL HISTORY Diagnosis Date Breast mass 08/15/2002 Rt breast-- benign Family history of colon cancer History of iron deficiency History of restless legs syndrome Iron deficiency anemia 02/14/2025 Mixed stress and urge incontinence Symptomatic menopausal or female climacteric states Thyroid nodule Urge incontinence 2 minipads a day Urgency of urination PAST SURGICAL HISTORY Procedure Laterality Date COLONOSCOPY FLX DX W/COLLJ SPEC WHEN PFRMD 02/21/2012 Return in 5 years (-2016) COLONOSCOPY SCREENING N/A 2018 HYSTEROSCOPY ENDOMETRIAL ABLATION 11/22/2000 PAST SURGICAL HISTORY OF 08/15/2002 Rt breast stereo benign RPR 1ST INGUN HRNA FULL TERM INFT <6 MO RDC right inguinal VAGINAL HYSTERECTOMY UTERUS 250 GM/< 02/12/2003 [facility] PROCEDURE Left 11/23/2024 Dr. Rodríguez, left middle FAMILY HISTORY Problem Relation Age of Onset Osteoporosis Mother polymalasia rheumatica, / with paralysis of stomach Osteoporosis Sister Osteoporosis Sister Heart Father skin cancer Colon Cancer Father Breast Cancer Paternal Grandmother in her 70s other (osteoporis [Other]) Sister 55 other (brain tumor [Other]) Sister Social History Tobacco Use Smoking status: Never Smokeless tobacco: Never Substance Use Topics Alcohol use: Yes Comment: Occasionally/rarely Drug use: No REVIEW OF SYMPTOMS: REVIEW OF SYSTEMS: General: The patient denies fatigue, denies weight loss, denies weight gain, + feeling hot, and feelings of cold. Eyes: The patient denies glaucoma, denies eye injury/surgery, + glasses or contacts. Ear/Nose/Throat: The patient denies allergies, denies hayfever, denies ear infections, and denies bloody noses. Cardiovascular: The patient denies chest pain, denies heart disease, denies high blood pressure, denies high cholesterol, and denies poor circulation. Respiratory: The patient denies tuberculosis, denies pneumonia, denies frequent cough, denies shortness of breath, and denies coughing up blood. Gastrointestinal: The patient denies difficulty swallowing, denies acid reflux, denies ulcers, denies jaundice/hepatitis, denies gallbladder problems, denies vomiting, denies black or tarry stools, denies hemorrhoids, denies bleeding from rectum, denies diverticulitis, denies constipation, denies diarrhea, denies loss of stool control, and + hernias. Kidney/Bladder: The patient denies kidney stones, denies urine infections, and denies bloody urine. Skin: The patient + a history of skin cancer, denies bleeding/changing moles, and denies a history of skin rash. Neurologic: The patient denies a history of epilepsy/convulsions, + headaches, denies head/spinal injuries, and denies stroke/TIA. Psychiatric: The patient denies psychiatric medications, denies depression, and denies voices. Endocrine: The patient denies thyroid disorders, denies diabetes, and denies hormonal problems. Hematologic: The patient denies a history of bruising, denies bleeding, and + anemia. Infections: The patient denies a history of measles and mumps, denies rheumatic fever, and denies sexually transmitted diseases. Musculoskeletal: The patient denies back pain/injury, denies back problems, denies sciatica, denies knee/foot trouble, denies arthritis, or denies gout. PHYSICAL EXAMINATION: General: The patient is 65 year old, female well nourished, well hydrated in no acute distress. The patient is oriented to time, place, and person. VITALS: Blood pressure 123/71, pulse 88, height 170.2 cm (5' 7), weight 70.6 kg (155 lb 9.6 oz). Body mass index is 24.37 kg/m . HEENT: Normal cephalic, ataumatic, pupils are equally round, sclera are anicteric, mucous membranes are moist, oropharynx is clear. Neck has no masses or asymmetry . Respiratory: Clear to auscultation. Cardiac: Regular rate and rhythm. Abdominal exam: Soft, nontender, with no palpable masses. No hepatosplenomegaly. No palpable hernias. Extremities: no clubbing or cyanosis LABORATORY VALUES: As Noted RADIOLOGIC STUDIES: As Noted Assessment IMPRESSION: screen for colon cancer, family history of colon cancer in father PLAN: I have reviewed my findings with the surgeon. Will plan for lower endoscopy. We discussed the risks and benefits of the planned endoscopy in terms understandable to the patient. I have informed the patient that complications can occur including failure to complete the endoscopy and perforation. Madelyn had the opportunity to ask questions concerning the planned endoscopy. Madelyn freely consents to surgery. I plan to use miraLAX bowel preparation I have explained to the patient the difference between IV conscious sedation and MAC anesthesia - and I have offered either, according to the patient's wishes. I have explained that with IV conscious sedation there is no anesthesia provider available and therefore there is a limitation of the amount of IV medications that can be given and that the patient may wake up in the middle of the procedure and/or experience pain/discomfort during the procedure. Further discussion was done and the patient was given the opportunity to ask questions and all questions were answered. Madelyn chooses IV conscious sedation. Maedlyn was counseled that if there are changes in his/her medical condition, to let the office know if surgery should proceed. If there are changes in patient's medical condition from time of this encounter to the day of the procedure that preclude anesthesia, patient may have procedure cancelled for patient's safety. Diagnoses: (Z12.11) Encounter for screening for malignant neoplasm of colon (primary encounter diagnosis) (Z80.0) Family history of colon cancer in father Portions of this documentation were copied and pasted from previous office visit notes in order to provide a cohesive continuity of the history. The note has been reviewed and edited and updated as necessary. Courtney Deras APRN.SHANA documented in this encounter [facility] 02-21-2025 Note HNO ID: [id number] Author: COURTNEY DERAS APRN.CNP Service: ? Author Type: Nurse Practitioner Type: Progress Notes Filed: 02/21/2025 09:13 Note Text: HISTORY AND PHYSICAL Madelyn Hayes : 1960 REFERRING PHYSICIAN: No referring provider defined for this encounter. CHIEF COMPLAINT: Patient presents with: Consult: Last colonoscopy 2017, denies symptoms. Hgb is low HPI: Madelyn is a 65 year old female referred for endoscopy. Madelyn notes due for screening colonoscopy-family hx of colon cancer in father. Madelyn denies abdominal pain. Madelyn denies diarrhea. Madelyn denies constipation. Madelyn notes a change in bowel habits. -sometimes stool is narrow -intermittent x the last couple of years Mdaelyn denies melena. Madelyn denies bright red blood per rectum. Madelyn denies hemorrhoids. Madelyn denies heartburn. Madelyn denies dysphagia. Madelyn denies a history of ulcers/ peptic ulcer disease. Madelyn has undergone prior endoscopy. Last colonoscopy was 04/[address] Robb at [facility]. Sedation: MAC Impression: - The examination was otherwise normal on direct and retroflexion views. - No specimens collected. Current Outpatient Medications Medication Sig pramipexole (MIRAPEX) 0.5 mg tablet Take 0.5 mg by mouth daily at bedtime. ferrous sulfate 325 mg (65 mg iron) tablet Take 325 mg by mouth two times a day. estradiol (ESTRACE) 0.01 % (0.1 mg/gram) vaginal cream Use vaginally two times a week. Estradiol (VIVELLE-DOT) 0.0375 mg/24 hr Apply 1 Patch as directed twice a week. TWICE WEEKLY valacyclovir (VALTREX) 1 g ORAL Tab Take 1 g by mouth as needed. MULTIVITAMIN TAB Take one(1) tablet daily. No current facility-administered medications for this visit. ALLERGIES: Ampicillin PAST MEDICAL HISTORY Diagnosis Date Breast mass 08/15/2002 Rt breast-- benign Family history of colon cancer History of iron deficiency History of restless legs syndrome Iron deficiency anemia 02/14/2025 Mixed stress and urge incontinence Symptomatic menopausal or female climacteric states Thyroid nodule Urge incontinence 2 minipads a day Urgency of urination PAST SURGICAL HISTORY Procedure Laterality Date COLONOSCOPY FLX DX W/COLLJ SPEC WHEN PFRMD 02/21/2012 Return in 5 years (-2016) COLONOSCOPY SCREENING N/A 2018 HYSTEROSCOPY ENDOMETRIAL ABLATION 11/22/2000 PAST SURGICAL HISTORY OF 08/15/2002 Rt breast stereo benign RPR 1ST INGUN HRNA FULL TERM INFT <6 MO RDC right inguinal VAGINAL HYSTERECTOMY UTERUS 250 GM/< 02/12/2003 [facility] PROCEDURE Left 11/23/2024 Dr. Rodríguez, left middle FAMILY HISTORY Problem Relation Age of Onset Osteoporosis Mother polymalasia rheumatica, / with paralysis of stomach Osteoporosis Sister Osteoporosis Sister Heart Father skin cancer Colon Cancer Father Breast Cancer Paternal Grandmother in her 70s other (osteoporis [Other]) Sister 55 other (brain tumor [Other]) Sister Social History Tobacco Use Smoking status: Never Smokeless tobacco: Never Substance Use Topics Alcohol use: Yes Comment: Occasionally/rarely Drug use: No REVIEW OF SYMPTOMS: REVIEW OF SYSTEMS: General: The patient denies fatigue, denies weight loss, denies weight gain, + feeling hot, and feelings of cold. Eyes: The patient denies glaucoma, denies eye injury/surgery, + glasses or contacts. Ear/Nose/Throat: The patient denies allergies, denies hayfever, denies ear infections, and denies bloody noses. Cardiovascular: The patient denies chest pain, denies heart disease, denies high blood pressure, denies high cholesterol, and denies poor circulation. Respiratory: The patient denies tuberculosis, denies pneumonia, denies frequent cough, denies shortness of breath, and denies coughing up blood. Gastrointestinal: The patient denies difficulty swallowing, denies acid reflux, denies ulcers, denies jaundice/hepatitis, denies gallbladder problems, denies vomiting, denies black or tarry stools, denies hemorrhoids, denies bleeding from rectum, denies diverticulitis, denies constipation, denies diarrhea, denies loss of stool control, and + hernias. Kidney/Bladder: The patient denies kidney stones, denies urine infections, and denies bloody urine. Skin: The patient + a history of skin cancer, denies bleeding/changing moles, and denies a history of skin rash. Neurologic: The patient denies a history of epilepsy/convulsions, + headaches, denies head/spinal injuries, and denies stroke/TIA. Psychiatric: The patient denies psychiatric medications, denies depression, and denies voices. Endocrine: The patient denies thyroid disorders, denies diabetes, and denies hormonal problems. Hematologic: The patient denies a history of bruising, denies bleeding, and + anemia. Infections: The patient denies a history of measles and mumps, denies rheumatic fever, and denies sexually transmitted diseases. Musculoskeletal: The patient denie (more content not included)... [facility] 02-21-2025 Radiology Diagnostic study note [facility] Imaging Services [address] [place] [address] [id number] Thyroid MR#: [id number] Acct: [id number] Name: MADELYN HAYES Rep #: [id number] : 1960 F 65 From: Kamille Winchester MD PCP: Dr. Dominick Schaffer MD Status: RE G CLI Study:Thyroid Date of Exam: 02/20/25 Exam# [id number] Ordering Dr: Dominick Schaffer MD PROCEDURE: THYROID 02/20/2025 REASON FOR EXAM: NODULE TECHNIQUE: THYROID COMPARISON: None FINDINGS: Right thyroid lobe size: 4.9 x 1.4 x 1.8 cm Left thyroid lobe size: 4.5 x 1.5 x 1.7 cm Isthmus: 0.16 cm Background parenchymal echotexture is homogeneous. Nodules: No obvious solid or cystic nodules. US/Thyroid IMPRESSION: Unremarkable study. No definite nodules. Reading Location: [place] [address] CC: Dr. Dominick Schaffer MD ~ Finger Waver: Signed [facility] 11-26-2024 Evaluation note Diagnosis Onset Date Resolution Trigger finger, left middle finger acute November 26, 2024 7:58am Trigger finger, left middle finger acute December 07, 2024 7:58am [facility] Work Phone: [phone]) 633-480104-11-2025 Consult note [facility] Medical Records Department [address] [place] [address] Pre-Anesthesia Evaluation 11/23/24 0643 MR#: [id number] Acct: [id number] Name: MADELYN HAYES Rep #:[id number] : 1960 64 From: Mac Mario MD PCP: Dr. Muna Putnam MD Status:REG SDC Y Race: C Location: [place] [address] ASA Classification* ASA Classification ASA Classification: 2 Assessment & Plan Anesthesia* Anesthesia Assessment Anesthesia Assessment: Discussed sedation and/or anesthesia options, risks, benefits, and alternatives with patient/parents/legal guardian/POA. Questions invited. The patient/parents/legal guardian/POA seems to understand and agrees to proceedwith anesthesia plan. Reviewed the physical assessment, medical history, allergy history and patient home medications list prior to surgery/procedure/anesthetic and documented any changes. Performed airway and anesthesia risk assessments. Anesthesia Type Anesthesia Type: MAC Anesthesia Focused Assessment* Temperature: 97.8 F Pulse Rate: 70 Blood Pressure: 119/74 Respiratory Rate: 16 Pulse Ox: 100 Airway Assessment Mouth opens: >3 cm Mallampati Score: II Focused Labs Anesthesia Preop lab: CBC WBC 4.5 K/mm3 (4.4-11.0) 04/29/23 15:55 04/29/23 RBC 4.19 M/mm3 (4.2-5.4) L 04/29/23 15:55 04/29/23 Hgb 12.9 g/dL (12.0-15.0) 04/29/23 15:55 04/29/23 Hct 38.7 % (37-47) 04/29/23 15:55 04/29/23 Plt Count 273 K/mm3 (150-450) 04/29/23 15:55 04/29/23 CHEMISTRY Potassium 4.1 mmol/L (3.5-5.1) 04/07/22 14:34 04/07/22 Sodium 140 mmol/L (136-145) 04/07/22 14:34 04/07/22 BUN 14 mg/dL (7-18) 04/07/22 14:34 04/07/22 Creatinine 0.72 mg/dL (0.55-1.02) 04/07/22 14:34 04/07/22 Glucose 90 mg/dL (74-106) 04/07/22 14:34 04/07/22 TSH 3.01 uIU/mL (0.358-3.74) 04/07/22 14:34 COAG Pre-Assessment Diagnosis/Proposed Procedure Planned Operative Procedure(s): (L) Left middle finger A1 lety release Anesthesia History Anesthesia History - affiliate marketing specialist: Anesthesia History - affiliate marketing specialist Hx Hospitalization No 11/14/24 14:39 Any Problems With Anesthesia No 11/14/24 14:39 Cholinesterase deficiency No 11/14/24 14:39 You/Your Family Experience No 11/14/24 14:39 fever (hyperthermia) with Relationship Recent Exposure to Contagious No 11/23/24 06:28 Disease Does patient have nerve No 11/14/24 14:39 stimulator Patient instructed to have device shut off --Does patient have Pacemaker No 11/23/24 06:28 or ICD? When Was Last Pacemaker Check QUESTION #4 FULL TEXT: You/Your Family Experience fever (hyperthermia) with Anesthesia Last Oral Intake Last Oral intake: Last Oral Intake NPO since 00:00 11/23/24 06:28 Meds taken in AM with sips of No 11/23/24 06:28 water? Meds patient instructed to take am of surgery PONV PONV - affiliate marketing specialist: PONV - affiliate marketing specialist Female Yes 11/14/24 14:39 HX of Motion Sickness Yes 11/14/24 14:39 HX of N/V After Surgery Yes 11/14/24 14:39 Non-Smoker Yes 11/14/24 14:39 Duration of Surgery greater No 11/14/24 14:39 than 60 minutes Number of Risk Factors 4 11/14/24 14:39 PONV Score Severe Risk 11/14/24 14:39 Height & Weight Height & Weight: Anesthesia: Height & Weight Height 5 ft 7 in 11/23/24 06:28 Weight: 71.9 kg 11/23/24 06:28 Body Mass Index (BMI) 24.8 11/23/24 06:28 Respiratory Assessment Respiratory Assessment - affiliate marketing specialist: Respiratory Tract Infection Hx - affiliate marketing specialist Hx Respiratory Tract Infection No 11/14/24 14:39 STOP Sleep Apnea STOP Sleep Apnea - affiliate marketing specialist: STOP Sleep Apnea - affiliate marketing specialist Hx Hypertension No 11/14/24 14:39 Hx Sleep Apnea No 11/14/24 14:39 CPAP BIPAP Do you snore loudly (louder No 11/14/24 14:39 than talking or can be heard Do you often feel tired/ No 11/14/24 14:39 fatigued/ sleepy during daytime? Has anyone observed you stop No 11/14/24 14:39 breathing during sleep? STOP Results Negative 11/14/24 14:39 QUESTION #5 FULL TEXT : Do you snore loudly (louder than talking or can be heard through closeddoors)? Tobacco Use History Tobacco Use History - affiliate marketing specialist: Tobacco Use History - affiliate marketing specialist Tobacco Use Smoking Status Never smoker 11/14/24 14:39 Hx Tobacco Use No 11/14/24 14:39 Years Smoking Packs Smoked per Day Smoking Cessation Date was within the last 15 years Hx Smoking Cessation Date Hx Smoking Cessation Counseling Hematologic Medial History Hematologic Hx - affiliate marketing specialist: Hematologic Medical Hx - contour stitcher Hx of Blood Transfusion No 11/14/24 14:39 Hx of Transfusion in last 3 No 11/14/24 14:39 Months Date of Last Transfusion (if within last 3 months) Ever experience any problems No 11/14/24 14:39 with transfusion(s)? Specify any problems Hx of Preganancy in last 3 N/A 11/14/24 14:39 Months Nurse Filling Out Transfusion NBUCHER 11/14/24 14:39 & Questions: Date: 11/14/24 11/14/24 14:39 Time: 14:40 11/14/24 14:39 Patient unable to answer at this time (ie. confused, unrespo /Reproduction History /Reproductive History - affiliate marketing specialist: /Reproductive Hx- affiliate marketing specialist Hx Now No 11/14/24 14:39 Gestational Age (in weeks): EDC: Hx Hx Para Hx Section SAB No 11/14/24 14:39 Active Medications Active Medications: Current Medications Generic Name Dose Route Start Last Admin Trade Name Freq PRN Reason Stop Dose Admin Cefazolin Sodium 2 gm/ N/A 20 mls @ 400 mls/hr 11/23/24 07:30 IV 11/23/24 07:32 X1 ONE [facility] Medical History Wears contact lenses Wears glasses Cancer Non-smoker Trigger finger, left middle finger Restless legs Anemia Viral encephalitis Home Medications ?Medication ?Instructions ?Recorded ?Last Taken ?Type multivitamin 1 cap PO DAILY 09/16/1911/13 History estradiol 0.01% (0.1 mg/gram) See Rx Instructions vagi nal 06/18/24 11/22/24 Rx vaginal cream .COMPLEX #42.5 grams estradiol 0.0375 mg/24 hr 1 patch transdermal 2XW #24 ea 06/18/24 11/22/24 Rx semiweekly transdermal patch pramipexole 0.5 mg tablet 0.5 mg PO QHS Restless leg 0 11/14/24 11/22/24 History Allergy/AdvReac Type Severity Reaction Status Date / Time ampicillin Allergy Mild Other Verified 11/23/24 06:27 Family History Father Colon cancer Heart disease heart valve replacement Grandmother Breast cancer Surgical History History of esophagogastroduodenoscopy (EGD) History of colonoscopy History of breast biopsy 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 History of hysterectomy History of [facility] H/O hernia repair Social History Smoking Status: Never smoker alcohol intake: current details: social substance use type: does not use caffeine: Yes what type of physical activity do you participate in: walking seatbelt use: always do you feel safe at home: Yes 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 11/23/24 0643 > Date _ Mac Mario MD [facility] Signature: Date CC: ~ Signed [facility]04-11-2025 Consult note [facility] Medical Records Department [address] [place] [address] Anesthesia Postop Eval II 11/23/24821 MR#: [id number] Acct: [id number] Name: MADELYN HAYES CHAD Rep #:[id number] : 1960 64 From: Mac Mario MD PCP: Dr. Muna Putnam MD Status:REG SDC Y Race: C Location: [address] Anesthesia Postop Eval I Sum Postop Eval Completion status Anesthesia document: Postop Eval 1 completed: Yes Anesthesia Postop Eval I Summary Anesthesia Postop Eval I Summary: Anesthesia Postop Eval I: Assessment Summary Airway patent Yes 11/23/24 07:54 GEOLOGICAL MANAGER.[email or web address] Spontaneous unlabored Yes 11/23/24 07:54 GEOLOGICAL MANAGER.[email or web address] respirations Mental status Awake,Calm 11/23/24 07:54 GEOLOGICAL MANAGER.TNES nausea No 11/23/24 07:54 GEOLOGICAL MANAGER.[email or web address] Vomiting No 11/23/24 07:54 GEOLOGICAL MANAGER.TNES Anesthesia Postop Eval I: Fluid Summary Crystalloid volume administer 500 11/23/24 07:54 GEOLOGICAL MANAGER.TNES (ml) Colloids volume administered ( ml) Blood Product volume administered (ml) Total IV fluid infused 500 11/23/24 07:54 GEOLOGICAL MANAGER.TNES Anesthesia Postop Eval I: Summary Notes Anesthesia Complication No 11/23/24 07:54 GEOLOGICAL MANAGER.TNES Anesthesia Complication Comment: Post-operative progress note Anesthesia: Postop Eval II Evaluation Mental status: Awake Pain Level: 0 nausea: No Vomiting: No 11/23/24821 > Date _ Mac Mario MD Cosigner Signature: Date CC: ~ Signed [facility]04-11-2025 Consult note Author Mac Mario [facility] Note Date/Time November 23, 2024 8:4 8am [facility] Medical Records Department [address] [place] [address] Pre-Anesthesia Evaluation 11/23/24 0643 MR#: [id number] Acct: [id number] Name: MADELYN HAYES Rep #:[id number] : 1960 64 From: Mac Mario MD PCP: Dr. Muna Putnam MD Status:REG SDC Y Race: C Location: [place] [address] ASA Classification* ASA Classification ASA Classification: 2 Assessment & Plan Anesthesia* Anesthesia Assessment Anesthesia Assessment: Discussed sedation and/or anesthesia options, risks, benefits, and alternatives with patient/parents/legal guardian/POA. Questions invited. The patient/parents/legal guardian/POA seems to understand and agrees to proceedwith anesthesia plan. Reviewed the physical assessment, medical history, allergy history and patient home medications list prior to surgery/procedure/anesthetic and documented any changes. Performed airway and anesthesia risk assessments. Anesthesia Type Anesthesia Type: MAC Anesthesia Focused Assessment* Temperature: 97.8 F Pulse Rate: 70 Blood Pressure: 119/74 Respiratory Rate: 16 Pulse Ox: 100 Airway Assessment Mouth opens: >3 cm Mallampati Score: II Focused Labs Anesthesia Preop lab: CBC WBC 4.5 K/mm3 (4.4-11.0) 04/29/23 15:55 04/29/23 RBC 4.19 M/mm3 (4.2-5.4) L 04/29/23 15:55 04/29/23 Hgb 12.9 g/dL (12.0-15.0) 04/29/23 15:55 04/29/23 Hct 38.7 % (37-47) 04/29/23 15:55 04/29/23 Plt Count 273 K/mm3 (150-450) 04/29/23 15:55 04/29/23 CHEMISTRY Potassium 4.1 mmol/L (3.5-5.1) 04/07/22 14:34 04/07/22 Sodium 140 mmol/L (136-145) 04/07/22 14:34 04/07/22 BUN 14 mg/dL (7-18) 04/07/22 14:34 04/07/22 Creatinine 0.72 mg/dL (0.55-1.02) 04/07/22 14:34 04/07/22 Glucose 90 mg/dL (74-106) 04/07/22 14:34 04/07/22 TSH 3.01 uIU/mL (0.358-3.74) 04/07/22 14:34 COAG Pre-Assessment Diagnosis/Proposed Procedure Planned Operative Procedure(s): (L) Left middle finger A1 lety release Anesthesia History Anesthesia History - affiliate marketing specialist: Anesthesia History - affiliate marketing specialist Hx Hospitalization No 11/14/24 14:39 Any Problems With Anesthesia No 11/14/24 14:39 Cholinesterase deficiency No 11/14/24 14:39 You/Your Family Experience No 11/14/24 14:39 fever (hyperthermia) with Relationship Recent Exposure to Contagious No 11/23/24 06:28 Disease Does patient have nerve No 11/14/24 14:39 stimulator Patient instructed to have device shut off --Does patient have Pacemaker No 11/23/24 06:28 or ICD? When Was Last Pacemaker Check QUESTION #4 FULL TEXT: You/Your Family Experience fever (hyperthermia) with Anesthesia Last Oral Intake Last Oral intake: Last Oral Intake NPO since 00:00 11/23/24 06:28 Meds taken in AM with sips of No 11/23/24 06:28 water? Meds patient instructed to take am of surgery PONV PONV - affiliate marketing specialist: PONV - affiliate marketing specialist Female Yes 11/14/24 14:39 HX of Motion Sickness Yes 11/14/24 14:39 HX of N/V After Surgery Yes 11/14/24 14:39 Non-Smoker Yes 11/14/24 14:39 Duration of Surgery greater No 11/14/24 14:39 than 60 minutes Number of Risk Factors 4 11/14/24 14:39 PONV Score Severe Risk 11/14/24 14:39 Height & Weight Height & Weight: Anesthesia: Height & Weight Height 5 ft 7 in 11/23/24 06:28 Weight: 71.9 kg 11/23/24 06:28 Body Mass Index (BMI) 24.8 11/23/24 06:28 Respiratory Assessment Respiratory Assessment - affiliate marketing specialist: Respiratory Tract Infection Hx - affiliate marketing specialist Hx Respiratory Tract Infection No 11/14/24 14:39 STOP Sleep Apnea STOP Sleep Apnea - affiliate marketing specialist: STOP Sleep Apnea - affiliate marketing specialist Hx Hypertension No 11/14/24 14:39 Hx Sleep Apnea No 11/14/24 14:39 CPAP BIPAP Do you snore loudly (louder No 11/14/24 14:39 than talking or can be heard Do you often feel tired/ No 11/14/24 14:39 fatigued/ sleepy during daytime? Has anyone observed you stop No 11/14/24 14:39 breathing during sleep? STOP Results Negative 11/14/24 14:39 QUESTION #5 FULL TEXT : Do you snore loudly (louder than talking or can be heard through closed doors)? Tobacco Use History Tobacco Use History - affiliate marketing specialist: Tobacco Use History - affiliate marketing specialist Tobacco Use Smoking Status Never smoker 11/14/24 14:39 Hx Tobacco Use No 11/14/24 14:39 Years Smoking Packs Smoked per Day Smoking Cessation Date was within the last 15 years Hx Smoking Cessation Date Hx Smoking Cessation Counseling Hematologic Medial History Hematologic Hx - affiliate marketing specialist: Hematologic Medical Hx - contour stitcher Hx of Blood Transfusion No 11/14/24 14:39 Hx of Transfusion in last 3 No 11/14/24 14:39 Months Date of Last Transfusion (if within last 3 months) Ever experience any problems No 11/14/24 14:39 with transfusion(s)? Specify any problems Hx of Preganancy in last 3 N/A 11/14/24 14:39 Months Nurse Filling Out Transfusion NBUCHER 11/14/24 14:39 & Questions: Date: 11/14/24 11/14/24 14:39 Time: 14:40 11/14/24 14:39 Patient unable to answer at this time (ie. confused, unrespo /Reproduction History /Reproductive History - affiliate marketing specialist: /Reproductive Hx- affiliate marketing specialist Hx Now No 11/14/24 14:39 Gestational Age (in weeks): EDC: Hx Hx Para Hx Section SAB No 11/14/24 14:39 Active Medications Active Medications: Current Medications Generic Name Dose Route Start Last Admin Trade Name Freq PRN Reason Stop Dose Admin Cefazolin Sodium 2 gm/ N/A 20 mls @ 400 mls/hr 11/23/24 07:30 IV 11/23/24 07:32 X1 ONE [facility] Medical History Wears contact lenses Wears glasses Cancer Non-smoker Trigger finger, left middle finger Restless legs Anemia Viral encephalitis Home Medications ?Medication ?Instructions ?Recorded ?Last Taken ?Type multivitamin 1 cap PO DAILY 09/16/1911/13 History estradiol 0.01% (0.1 mg/gram) See Rx Instructions vagi nal 06/18/24 11/22/24 Rx vaginal cream .COMPLEX #42.5 grams estradiol 0.0375 mg/24 hr 1 patch transdermal 2XW #24 ea 06/18/24 11/22/24 Rx semiweekly transdermal patch pramipexole 0.5 mg tablet 0.5 mg PO QHS Restless leg 0 11/14/24 11/22/24 History Allergy/AdvReac Type Severity Reaction Status Date / Time ampicillin Allergy Mild Other Verified 11/23/24 06:27 Family History Father Colon cancer Heart disease heart valve replacement Grandmother Breast cancer Surgical History History of esophagogastroduodenoscopy (EGD) History of colonoscopy History of breast biopsy 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 History of hysterectomy History of [facility] H/O hernia repair Social History Smoking Status: Never smoker alcohol intake: current details: social substance use type: does not use caffeine: Yes what type of physical activity do you participate in: walking seatbelt use: always do you feel safe at home: Yes 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 11/23/24 0643 <Electronically signed by Mac Mario MD > Date _ Mac Mario MD Cosigner Signature: Date CC: ~ Signed [facility] Work Phone: 1(863) 375-606704-11-2025 Evaluation note* Diagnosis Onset Date Resolution Status Admit Date Trigger finger, left middle finger acute November 23, 2024 5:55am Trigger finger, left middle finger acute November 26, 2024 7:58am Trigger finger, left middle finger acute December 07, 2024 7:58am [facility] Work Phone: 1(114) 328-374704-11-2025 Consult note [facility] Medical Records Department [address] [place] [address] Anesthesia Postop Eval I 11/23/24 0753 MR#: [id number] Acct: [id number] Name: MADELYN HAYES Rep #:[id number] : 1960 64 From: Estuardo DASILVA PCP: Dr. Muna Putnam MD Status:REG [facility] Y Race: C Location: [place] [address] Anesthesia: Postop Eval I Current Vital Signs Temperature: 97.2 F Pulse Rate: 75 Blood Pressure: 108/70 Respiratory Rate: 16 Pulse Ox: 99 Oxygen Delivery Method: Room Air Assessment Airway patent: Yes Spontaneous unlabored respirations: Yes Mental status: Awake and Calm nausea: No Vomiting: No Anesthesia Complication: No Fluid Hydration Crystalloid volume administer (ml): 500 Total IV fluid infused: 500 Progress Note Anesthesia document: Postop Eval 1 completed: Yes 11/23/24 0754 GEOLOGICAL MANAGER> Date _ Estuardo Hernandezigner Signature: Date CC: ~ Signed [facility]04-11-2025 Discharge summary [facility] Medical Records Department [address] [place] [address] Instructions for Home/Discharge Instructions 11/23/24 0751 MR#: [id number] Acct: [id number] Name: MADELYN HAYES Rep #:[id number] : 1960 64 From: Jm Rodríguez MD PCP: Dr. Muna Putnam MD Status:REG [facility] Discharge Instructions Diet Discharge Diet: No restrictions Activity Discharge Activity: Return to Normal Activity Lifting Restrictions: no heavy lifting or gripping Keep extremity elevated above heart level: Operative Extremity Additional Activity Instructions:: ok for gentle finger rom Dressing / Incision Call your doctor if your incision/area has: Continuous Slow Oozing, Sudden Increased Bleeding, Increased Pain/ Swelling, Increased Redness, Foul Smelling Discharge and Swelling at the incision site Call your doctor if you observe: Fever of 101 or Higher, Coldness, Increased Pain and Numbness or Tingling Change Dressing in: 1 day Cleanse incision/area with: Do not get Incision Wet Follow Up Care Please Follow Up With: Jm Rodríguez MD When: within 2 weeks Test Results: Test results from this visit will be discussed in further detail at your follow- up appointment, if applicable. Discharge Plan Admission Attending Provider: Jm Rodríguez Primary Care Provider: Muna Putnam Patient Instructions: What Is Trigger Finger? Print Language: Tunisian Discharge Orders/Prescriptions Prescriptions: No Action multivitamin Capsule 1 cap PO DAILY estradiol 0.01 % (0.1 mg/gram) cream See Rx Instructions vaginal .COMPLEX Qty: 42.5 2RF Rx Instructions: small amount as directed vaginal every other day X 4 weeks then twice a week; estradiol 0.0375 mg/24 hr patch semiweekly 1 patch Transdermal 2XW Qty: 24 4RF pramipexole 0.5 mg tablet 0.5 mg PO QHS Referrals / Follow Up: Muna Putnam MD [Primary Care Provider] - Jm Rodríguez MD [Med Staff - Active Staff] - Disposition Disposition (needs filled in before D/C Order can be placed): Home, Self Care 11/23/24 0752Scomary Rodríguez MD CC: Dr. Muna Putnam MD ~ Signed [facility]04-11-2025 Procedure note [facility] Medical Records Department [address] [place] [address] Operative Report 11/23/24 0746 MR#: [id number] Acct: [id number] Name: MADELYN HAYES Rep #:[id number] : 1960 64 From: Jm Rodríguez MD PCP: Dr. Muna Putnam MD Status:REG [facility] Location: [place] [address] Problems Associated Problem List Diagnoses (1) Trigger finger, left middle finger: Procedures Musculoskeletal 20xxx-29xxx: Other Procedure See Report Operative Report (Standard) Operative Information Date of Procedure: 11/23/24 Pre-Operative Diagnosis: Left middle finger trigger finger Post-Operative Diagnosis: Same Surgery/Procedure Performed: Left middle finger volar A1 lety release car porter: No Type of Anesthesia: General and Local RN Documented Start/Stop Times: Operation Date: 11/23/24 07:30 Case Time Into Pre-Op 11/23/24 06:04 Anesthesia Start 11/23/24 07:20 Into Room 11/23/24 07:20 Out of Pre-Op 11/23/24 07:25 Procedure Start 11/23/24 07:34 Procedure Start Time: 07:34 Procedure Stop Time: 07:48 Select all DRAINS/GRAFTS/IMPLANTS that apply: None Estimated Blood Loss: 5 Specimen collected: No Description of surgery: Patient brought to the operating room theater. Placed supine on the table. Hand table to the patient's left side. All bony prominences padded. SCDs on the legs. 2 g IV Ancef administered prior to thestart of the procedure. General anesthesia induced. Tourniquet applied to the upper extremity appropriately padded. Bed turned 90 degrees. Upper extremity prepped and draped in the usual sterile fashi on allowing over 3 minutes drying time prior todraping. Preoperative timeout performed to confirm the site patient and the surgery. Began by inflating the tourniquet to 250 mmHg. Use the iron hand to stabilize the hand. Used 2 cc of half percent bupivacaine around the incision site. Madea small longitudinal incision at the volar A1 lety of the left middle finger. Carried dissection down through skin and subcutaneous tissue tometiculous hemostasis. Identified the volar A1 lety made a longitudinal incision and that fully release this proximally and distally. Identified the tendons deliverthese through the incision. Tendons were intact no signs of degeneration. Tourniquet let down meticulous hemostasis achieved wound thoroughly irrigated. Subcutaneous tissue closed with 3-0 Vicryl suture and skin with 3-0 Monocryl. Skin cleaned with wet dry followed application of Steri-Strips Adaptic 4 x 4 gauze and Damian wrap loosely wrapped. Patient woken up from a general anesthetic transferred off the operating table taken to postanesthetic care unit in stable condition. All sponge needle instrument counts were correct no complicationsplan for the patient gentle range of motion of the fingers no heavy lifting or gripping and follow-up in theoffice within 2 [place]. cpt 08022 Surgical Findings: As above Complications Complications: No Admit VTE Documentation VTE Present on Admission: No VTE Mechan Device Prophylaxis: SCD's VTE Pharm Prophylaxis ordered?: No Reason prophylaxis not ordered: Treatment Not Indicated 11/23/24 0750 Cosigner Signature (if applicable): CC: Dr. Muna Putnam MD; Dr. Jm Rodríguez MD~ Signed [facility]04-11-2025 History and physical note [facility] Medical Records Department [address] [place] [address] History & Physical Exam 11/23/24 0651 MR#: [id number] Acct: [id number] Name: MADELYN HAYES CHAD Rep #:[id number] : 1960 64 From: Jm Rodríguez MD PCP: Dr. Muna Putnam MD Status:[facility] Location: [facility]-1 HPI - General HPI Narrative MADELYN HAYES, is a 64 F who presents for left middle finger A1 lety release. No changes to history and physical exam. Left middle finger marked. Risks alternatives benefits and postoperative instructions given. Patient understandsno further questions okay to proceed. MR#: [id number] Acct: [id number] Name: MADELYN HAYES Rep #: [id number] : 1960 Provider: Dr. Jm Rodríguez MD Age/Sex: 64/F Location[place] [facility] Status: Signed Intake Vital Signs 06/18/2411:19 10/08/2514:15 Height 5 ft 7 in 5 ft 7 in Weight: 158 lb 2 oz BMI 24.7 Intake Visit Reasons: LEFT HAND Chief Complaint: Left Hand - Trigger Finger Accompanied by: Self Is patient in pain?: Yes Pain scale (1-10): 4 Allergies ampicillin Allergy (Mild, Verified 10/08/24 15:16) Other Medications ?Medication ?Instructions ?Recorded ?Confirmed ?Type multivitamin 1 cap PO DAILY 09/16/19 10/08/24 History pramipexole 0.25 mg tablet 0.25 mg PO DAILY 06/10/22 10/08/24 Histo ry estradiol 0.01% (0.1 mg/gram) See Rx Instructions vaginal 06/18/24 10/08/24 Rx vaginal cream .COMPLEX #42.5 grams estradiol 0.0375 mg/24 hr 1 patch transdermal 2XW #24 ea 06/18/24 10/08/24 Rx semiweekly transdermal patch PFSH Medical History Trigger finger, left middle finger Restless legs Anemia Viral encephalitis Surgical History 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 History of hysterectomy History of LAVH H/O hernia repair Family History Father Colon cancer Heart disease heart valve replacementGrandmother Breast cancer Social History Smoking Status: Never smoker alcohol intake: current details: social substance use type: does not use caffeine: Yes what type of physical activity do you participate in: walking seatbelt use: always do you feel safe at home: Yes 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 Sidney MD 10/08/24 1029. Part of today?s visit was documented by [ ], acting as scribe. MADELYN HAYES is a 64 year old F here today for FU left middle finger trigger finger, had cortisoneinjection 8 months ago. The injection was effective but the pain has returned in the finger is locking up especially in flexion. It is a minor problem but is still quite bothersome for the patient. Coding Level of Care Code Off vis,est,level 3 Diagnoses Trigger finger, left middle finger M65.332 Comment Assessment and Plan Assessment and Plan (1) Trigger finger, left middle finger: Status: Acute Plan: 64-year-old pleasant female with a left middle finger trigger finger. Explainedthe diagnosis prognosis different treatment options the patient including but not limited to rest ice anti-inflammatories activity modification splinting cortisone injections or A1 lety volar surgical release. Patient w sundar to go ahead with left middle finger A1 lety release discussed the pros and cons riskbenefits of continued nonoperative management as well as the recovery after surgery 2 weeks to heal the incision generally 4 to 6 weeks of no heavy lifting or gripping but immediate range of motion of the fingers. Pros and cons risks and benefits were discussed with the patient including but not limited to infection, pain, stiffness, bleeding, damage to surrounding structures, neurovascular injury, recurrence or retear, failure or wear of hardware or fixation, bowstring, damage to tendon, instability, fracture, deep vein thrombosis and pulmonary embolism, anesthetic risks, , patient dissatisfaction, need for further surgery and other risks. Patient understood and wished to proceed with surgery, and signed the informed consent documentation. Ortho Exam General General: Yes no acute distress Neurologic: Yes alert and Yes oriented x3 Psychologic: Yes reasonable and appropriate Right Wrist/Hand Skin/Wound: No Swelling and No Ecchymosis Left Wrist/Hand Skin/Wound: Yes CDI, No Swelling, No Ecchymosis, Yes nail intact, Yes capillary refill normal and No erythema A1 lety trigger: Yes (middle, pain at volar a1 lety) Left Wrist: No Snuffbox tenderness Motor: EPL: 5, FDP-2: 5, 1st Dorsal Interosseous: 5 and APB: 5 Sensation: Radial: I, Ulnar: I and Median: I WRIST: obvious triggering middle finger. [facility] Medical History Wears contact lenses Wears glasses Cancer Non-smoker Trigger finger, left middle finger Restless legs Anemia Viral encephalitis Home Medications ?Medication ?Instructions ?Recorded ?Last Taken ?Type multivitamin 1 cap PO DAILY 09/16/1911/13 History estradiol 0.01% (0.1 mg/gram) See Rx Instructions vagi nal 06/18/24 11/22/24 Rx vaginal cream .COMPLEX #42.5 grams estradiol 0.0375 mg/24 hr 1 patch transdermal 2XW #24 ea 06/18/24 11/22/24 Rx semiweekly transdermal patch pramipexole 0.5 mg tablet 0.5 mg PO QHS Restless leg 0 11/14/24 11/22/24 History Allergy/AdvReac Type Severity Reaction Status Date / Time ampicillin Allergy Mild Other Verified 11/23/24 06:27 Family History Father Colon cancer Heart disease heart valve replacement Grandmother Breast cancer Surgical History History of esophagogastroduodenoscopy (EGD) History of colonoscopy History of breast biopsy 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 History of hysterectomy History of LAVH H/O hernia repair Social History Smoking Status: Never smoker alcohol intake: current details: social substance use type: does not use caffeine: Yes what type of physical activity do you participate in: walking seatbelt use: always do you feel safe at home: Yes 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 Muna Putnam MD; Dr. Jm Rodríguez MD~ Signed [facility]04-11-2025 [facility] Medical Records Department [address] [place] [address] History Physical Exam 11/23/24 0651 MR#: [id number] Acct: [id number] Name: MADELYN HAYES CHAD Rep #: [id number] : 1960 64 From: Jm Rodríguez MD PCP: Dr. Muna Putnam MD Status:REG [facility] Location: [facility] HPI - General HPI Narrative MADELYN HAYES, is a 64 F who presents for left middle finger A1 lety release. No changes to history and physical exam. Left middle finger marked. Risks alternatives benefits and postoperative instructions given. Patient understands no further questions okay to proceed. MR#: [id number] Acct: [id number] Name: MADELYN HAYES CHAD Rep #: [id number] : 1960 Provider: Dr. Jm Rodríguez MD Age/Sex: 64/F Location: [facility] Status: Signed Intake Vital Signs 06/18/2411:19 10/08/2514:15 Height 5 ft 7 in 5 ft 7 in Weight: 158 lb 2 oz BMI 24.7 Intake Visit Reasons: LEFT HAND Chief Complaint: Left Hand - Trigger Finger Accompanied by: Self Is patient in pain?: Yes Pain scale (1-10): 4 Allergies ampicillin Allergy (Mild, Verified 10/08/24 15:16) Other Medications ???Medication ???Instructions ???Recorded ???Confirmed ???Type multivitamin 1 cap PO DAILY 09/16/19 10/08/24 History pramipexole 0.25 mg tablet 0.25 mg PO DAILY 06/10/22 10/08/24 History estradiol 0.01% (0.1 mg/gram) See Rx Instructions vaginal 06/18/24 10/08/24 Rx vaginal cream .COMPLEX #42.5 grams estradiol 0.0375 mg/24 hr 1 patch transdermal 2XW #24 ea 06/18/24 10/08/24 R x semiweekly transdermal patch PFSH Medical History Trigger finger, left middle finger Restless legs Anemia Viral encephalitis Surgical History 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 History of hysterectomy History of LAVH H/O hernia repair Family History Father Colon cancer Heart disease heart valve replacementGrandmother Breast cancer Social History Smoking Status: Never smoker alcohol intake: current details: social substance use type: does not use caffeine: Yes what type of physical activity do you participate in: walking seatbelt use: always do you feel safe at home: Yes 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 Jm Rodríguez MD 10/08/24 1029. Part of today???s visit was documented by [ ], acting as scribe. MADELYN HAYES is a 64 year old F here today for FU left middle finger trigger finger, had cortisone injection 8 months ago. The injection was effective but the pain has returned in the finger is locking up especially in flexion. It is a minor problem but is still quite bothersome for the patient. Coding Level of Care Code Off vis,est,level 3 Diagnoses Trigger finger, left middle finger M65.332 Comment Assessment and Plan Assessment and Plan (1) Trigger finger, left middle finger: Status: Acute Plan: 64-year-old pleasant female with a left middle finger trigger finger. Explained the diagnosis prognosis different treatment options the patient including but not limited to rest ice anti- inflammatories activity modification splinting cortisone injections or A1 lety volar surgical release. Patient wishes to go ahead with left middle finger A1 lety release discussed the pros and cons risk benefits of continued nonoperative management as well as the recovery after surgery 2 weeks to heal the incision generally 4 to 6 weeks of no heavy lifting or gripping but immediate range of motion of the fingers. Pros and cons risks and benefits were discussed with the patient including but not limited to infection, pain, stiffness, bleeding, damage to surrounding structures, neurovascular injury, recurrence or retear, failure or wear of hardware or fixation, bowstring, damage to tendon, instability, fracture, deep vein thrombosis and pulmonary embolism, anesthetic risks, , patient dissatisfaction, need for further surgery and other risks. Patient understood and wished to proceed with surgery, and signed the informed consent documentation. Ortho Exam General General: Yes no acute distress Neurologic: Yes alert and Yes oriented x3 Psychologic: Yes reasonable and appropriate Right Wrist/Hand Skin/Wound: No Swelling and No Ecchymosis Left Wrist/Hand Skin/Wound: Yes CDI, No Swelling, No Ecchymosis, Yes nail intact, Ye (more content not included)...[facility]02-24-2025 Evaluation note* Diagnosis Onset Date Resolution Status Admit Date Trigger finger, left middle finger acute October 08 3:04pm Trigger finger, left middle finger acute November 23, 2024 5:55am [facility] Work Phone: [phone]) 202-318212-12-2023 Discharge summary Author Gary Hong [facility] July 26, 2023 11:31am Note Date/Time July 26, 2023 11:31am [facility] Physical Therapy [facility] [address] [place] [address]. [address] [place] [id number] / REHABILITATION SERVICES DISCHARGE SUMMARY MR#: [id number] Acct: [id number] Name: MADELYN HAYES Rep #: [id number] : 1960 63 From: Gary Hong PT, ATC Referring Dr.: Dr. Muna Putnam MD Status: REG R Insurance: [facility] [id number] SELF PAY INSURANCE Discharge Summary D/C summary: It has been my pleasure to treat MADELYN HAYES referred by Dr. Muna Putnam MD, with the diagnosis of Right Shoulder Pain for a total of 17 visit(s). Discharge Date: Please see the following information for a summary of their discharge status. Subjective Subjective: Pt reports she has improved some, but very little Pain R hand: Pain Intensity (Out of 10): 0 R shoulder: Pain Intensity (Out of 10): 0 Overall Improvement % Improvement: 20 Objective Objective/Function: R shoulder pain ranges from 0-9/10 R UE still goes numb intermittently Pt reports she is I with HEP and postural awareness at this time Goals Goal 1:: Patient will be I with HEP and progression Goal Progress: Goal Met Goal 2:: Patient will maintain proper posture t/o tx session to demo increase scapular s/s Goal Progress: Unable to assess Goal 3:: Patient will report no N/T for 1 week Goal Progress: Not Progressing Goal 4:: Patient will report 80% improvement Goal Progress: Not Progressing Plan Plan: Discontinue and recommend pt to return to doctor D/C Information d/c sentence: If there are questions or concerns regarding this patient's physical therapy, please feel free to call me at [phone]. Thank you for the referral of thispatient. Sincerely, Gary Hong, PT, ATC Balance/Gait/Functional tests Balance/Special Test Scores Quick DASH Score: 50.0000 Improvement % Improvement: 20 <Electronically signed by Gary Hong PT, ATC> 07/26/23 1131 CC: Dr. Muna Putnam MD ~ [facility] Signed [facility] Work Phone: Consult note Author Estuardo Lopez [facility] Note Date/Time November 23, 2024 7:5 4am [facility] Medical Records Department [address] [place] [address] Anesthesia Postop Eval I 11/23/24 0753 MR#: [id number] Acct: [id number] Name: MADELYN HAYES CHAD Rep #:[id number] : 1960 64 From: Estuardo DASILVA PCP: Dr. Muna Putnam MD Status:REG [facility] Y Race: C Location: [place] [address] Anesthesia: Postop Eval I Current Vital Signs Temperature: 97.2 F Pulse Rate: 75 Blood Pressure: 108/70 Respiratory Rate: 16 Pulse Ox: 99 Oxygen Delivery Method: Room Air Assessment Airway patent: Yes Spontaneous unlabored respirations: Yes Mental status: Awake and Calm nausea: No Vomiting: No Anesthesia Complication: No Fluid Hydration Crystalloid volume administer (ml): 500 Total IV fluid infused: 500 Progress Note Anesthesia document: Postop Eval 1 completed: Yes 11/23/24 0754 <Electronically signed by Estuardo Lopez CRNA> Date _ Estuardo Lopez GEOLOGICAL MANAGER Cosigner Signature: Date CC: ~ Signed [facility] Work Phone: Consult note Author Mac Mario [facility] Note Date/Time November 23, 2024 8:4 8am [facility] Medical Records Department [address] [place] [address] Anesthesia Postop Eval II 11/23/24821 MR#: [id number] Acct: [id number] Name: MADELYN HAYES CHAD Rep #:[id number] : 1960 64 From: Mac Mario MD PCP: Dr. Muna Putnam MD Status:REG SD Y Race: C Location: [place] [address] Anesthesia Postop Eval I Sum Postop Eval Completion status Anesthesia document: Postop Eval 1 completed: Yes Anesthesia Postop Eval I Summary Anesthesia Postop Eval I Summary: Anesthesia Postop Eval I: Assessment Summary Airway patent Yes 11/23/24 07:54 GEOLOGICAL MANAGER.TNES Spontaneous unlabored Yes 11/23/24 07:54 GEOLOGICAL MANAGER.TNES respirations Mental status Awake,Calm 11/23/24 07:54 GEOLOGICAL MANAGER.TNES nausea No 11/23/24 07:54 GEOLOGICAL MANAGER.TNES Vomiting No 11/23/24 07:54 GEOLOGICAL MANAGER.TNES Anesthesia Postop Eval I: Fluid Summary Crystalloid volume administer 500 11/23/24 07:54 GEOLOGICAL MANAGER.TNES (ml) Colloids volume administered ( ml) Blood Product volume administered (ml) Total IV fluid infused 500 11/23/24 07:54 GEOLOGICAL MANAGER.TNES Anesthesia Postop Eval I: Summary Notes Anesthesia Complication No 11/23/24 07:54 GEOLOGICAL MANAGER.TNES Anesthesia Complication Comment: Post-operative progress note Anesthesia: Postop Eval II Evaluation Mental status: Awake Pain Level: 0 nausea: No Vomiting: No 11/23/24 0822 <Electronically signed by Mac Mario MD > Date _ Mac Mario MD Cosigner Signature: Date CC: ~ Signed [facility] Work Phone: Discharge summary Author Jm Rodríguez [facility] Note Date/Time November 23, 2024 7:5 2am [facility] Medical Records Department [address] [place] [address] Instructions for Home/Discharge Instructions 11/23/24 0751 MR#: [id number] Acct: [id number] Name: MADELYN HAYES Rep #:[id number] : 1960 64 From: Jm Rodríguez MD PCP: Dr. Muna Putnam MD Status:REG [facility] Discharge Instructions Diet Discharge Diet: No restrictions Activity Discharge Activity: Return to Normal Activity Lifting Restrictions: no heavy lifting or gripping Keep extremity elevated above heart level: Operative Extremity Additional Activity Instructions:: ok for gentle finger rom Dressing / Incision Call your doctor if your incision/area has: Continuous Slow Oozing, Sudden Increased Bleeding, Increased Pain/ Swelling, Increased Redness, Foul Smelling Discharge and Swelling at the incision site Call your doctor if you observe: Fever of 101 or Higher, Coldness, Increased Pain and Numbness or Tingling Change Dressing in: 1 day Cleanse incision/area with: Do not get Incision Wet Follow Up Care Please Follow Up With: Jm Rodríguez MD When: within 2 weeks Test Results: Test results from this visit will be discussed in further detail at your follow- up appointment, if applicable. Discharge Plan Admission Attending Provider: Jm Rodríguez Primary Care Provider: Muna Putnam Instructions Patient Instructions: What Is Trigger Finger? Print Language: Tunisian Discharge Orders/Prescriptions Prescriptions: No Action multivitamin Capsule 1 cap PO DAILY estradiol 0.01 % (0.1 mg/gram) cream See Rx Instructions vaginal .COMPLEX Qty: 42.5 2RF Rx Instructions: small amount as directed vaginal every other day X 4 weeks then twice a week; estradiol 0.0375 mg/24 hr patch semiweekly 1 patch Transdermal 2XW Qty: 24 4RF pramipexole 0.5 mg tablet 0.5 mg PO QHS Referrals / Follow Up: Muna Putnam MD [Primary Care Provider] - Jm Rodríguez MD [Med Staff - Active Staff] - Disposition Disposition (needs filled in before D/C Order can be placed): Home, Self Care 11/23/24 0752<Electronically signed by Jm Rodríguez MD>Jm Rodríguez MD CC: Dr. Muna Putnam MD ~ Signed [facility] Work Phone: evaluation noteNo assessment information available [facility] Work Phone: evaluation note* Diagnosis Onset Date Resolution Status Current use of estrogen therapy acute Encounter for routine gynecological examination noneactive [facility] Work Phone: evaluation note* Diagnosis Onset Date Resolution Status Current use of estrogen therapy acute Family history of colon cancer acute Postmenopausal acute Encounter for routine gynecological examination noneactive [facility] Work Phone: evaluation note* Diagnosis Encounter for screening for malignant neoplasm of colon- Primary Special screening for malignant neoplasms, colon Family history of colon cancer in father [facility] Encounter for screening colonoscopy- Primary Special screening for malignant neoplasms, colon Encounter for screening for malignant neoplasm of colon Special screening for malignant neoplasms, colon Family history of colon cancer in father [facility] Author Jm Rodríguez [facility] Note Date/Time November 23, 2024 6:[address] [facility] Medical Records Department [address] [place] [address] History & Physical Exam 11/23/24 0651 MR#: [id number] Acct: [id number] Name: MADELYN HAYES CHAD Rep #:[id number] 1 : 1960 64 From: Jm Rodríguez MD PCP: Dr. Muna Putnam MD Status:REG [facility] [place] Location: [place] [id number] HPI - General HPI Narrative MADELYN HAYES, is a 64 F who presents for left middle finger A1 lety release. No changes to history and physical exam. Left middle finger marked. Risks alternatives benefits and postoperative instructions given. Patient understandsno further questions okay to proceed. MR#: [id number] Acct: [id number] Name: MADELYN HAYES Rep #: [id number] : 1960 Provider: Dr. Jm Rodríguez MD Age/Sex: 64/F Location: [facility] [place] Status: Signed Intake Vital Signs 06/18/2411:19 10/08/2514:15 Height 5 ft 7 in 5 ft 7 in Weight: 158 lb 2 oz BMI 24.7 Intake Visit Reasons: LEFT HAND Chief Complaint: Left Hand - Trigger Finger Accompanied by: Self Is patient in pain?: Yes Pain scale (1-10): 4 Allergies ampicillin Allergy (Mild, Verified 10/08/24 15:16) Other Medications ?Medication ?Instructions ?Recorded ?Confirmed ?Type multivitamin 1 cap PO DAILY 09/16/19 10/08/24 History pramipexole 0.25 mg tablet 0.25 mg PO DAILY 06/10/22 10/08/24 Histo ry estradiol 0.01% (0.1 mg/gram) See Rx Instructions vaginal 06/18/24 10/08/24 Rx vaginal cream .COMPLEX #42.5 grams estradiol 0.0375 mg/24 hr 1 patch transdermal 2XW #24 ea 06/18/24 10/08/24 Rx semiweekly transdermal patch PFSH Medical History Trigger finger, left middle finger Restless legs Anemia Viral encephalitis Surgical History 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 History of hysterectomy History of [facility] H/O hernia repair Family History Father Colon cancer Heart disease heart valve replacementGrandmother Breast cancer Social History Smoking Status: Never smoker alcohol intake: current details: social substance use type: does not use caffeine: Yes what type of physical activity do you participate in: walking seatbelt use: always do you feel safe at home: Yes 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 Jm Rodríguez MD 10/08/24 1029. Part of today?s visit was documented by [ ], acting as scribe. MADELYN HAYES is a 64 year old F here today for FU left middle finger trigger finger, had cortisone injection 8 months ago. The injection was effective but the pain has returned in the finger is locking up especially in flexion. It is a minor problem but is still quite bothersome for the patient. Coding Level of Care Code Off vis,est,level 3 Diagnoses Trigger finger, left middle finger M65.332 Comment Assessment and Plan Assessment and Plan (1) Trigger finger, left middle finger: Status: Acute Plan: 64-year-old pleasant female with a left middle finger trigger finger. Explainedthe diagnosis prognosis different treatment options the patient including but not limited to rest ice anti-inflammatories activity modification splinting cortisone injections or A1 lety volar surgical release. Patient wishes to go ahead with left middle finger A1 lety release discussed the pros and cons riskbenefits of continued nonoperative management as well as the recovery after surgery 2 weeks to heal the incision generally 4 to 6 weeks of no heavy lifting or gripping but immediate range of motion of the fingers. Pros and cons risks and benefits were discussed with the patient including but not limited to infection, pain, stiffness, bleeding, damage to surrounding structures, neurovascular injury, recurrence or retear, failure or wear of hardware or fixation, bowstring, damage to tendon, instability, fracture, deep vein thrombosis and pulmonary embolism, anesthetic risks, , patient dissatisfaction, need for further surgery and other risks. Patient understood and wished to proceed with surgery, and signed the informed consent documentation. Ortho Exam General General: Yes no acute distress Neurologic: Yes alert and Yes oriented x3 Psychologic: Yes reasonable and appropriate Right Wrist/Hand Skin/Wound: No Swelling and No Ecchymosis Left Wrist/Hand Skin/Wound: Yes CDI, No Swelling, No Ecchymosis, Yes nail intact, Yes capillary refill normal and No erythema A1 lety trigger: Yes (middle, pain at volar a1 lety) Left Wrist: No Snuffbox tenderness Motor: EPL: 5, FDP-2: 5, 1st Dorsal Interosseous: 5 and APB: 5 Sensation: Radial: I, Ulnar: I and Median: I WRIST: obvious triggering middle finger. [facility] Medical History Wears contact lenses Wears glasses Cancer Non-smoker Trigger finger, left middle finger Restless legs Anemia Viral encephalitis Home Medications ?Medication ?Instructions ?Recorded ?Last Taken ?Type multivitamin 1 cap PO DAILY 09/16/1911/13 History estradiol 0.01% (0.1 mg/gram) See Rx Instructions vagi nal 06/18/24 11/22/24 Rx vaginal cream .COMPLEX #42.5 grams estradiol 0.0375 mg/24 hr 1 patch transdermal 2XW #24 ea 06/18/24 11/22/24 Rx semiweekly transdermal patch pramipexole 0.5 mg tablet 0.5 mg PO QHS Restless leg 0 11/14/24 11/22/24 History Allergy/AdvReac Type Severity Reaction Status Date / Time ampicillin Allergy Mild Other Verified 11/23/24 06:27 Family History Father Colon cancer Heart disease heart valve replacement Grandmother Breast cancer Surgical History History of esophagogastroduodenoscopy (EGD) History of colonoscopy History of breast biopsy 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 History of hysterectomy History of [facility] H/O hernia repair Social History Smoking Status: Never smoker alcohol intake: current details: social substance use type: does not use caffeine: Yes what type of physical activity do you participate in: walking seatbelt use: always do you feel safe at home: Yes 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 Muna Putnam MD; Dr. 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 COWS WORKER [address] [place] [address] Phone: tel: fax: Ambulatory Surgery [address] [place] [address] Phone: tel: Referral ID Status Reason Start Date Expiration Date V isits Requested Visits Authorized [id number] Closed Auto-Generate d Referral 03/07/2025 02/21/2026 1 1 [facility] Chief Complaint and Reason for Visit Chief Complaint E LAB ORDER Chief Complaint E LAB ORDER SEE ORDER Chief Complaint E LAB ORDER SEE ORDER 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) Reason for Visit Current use of estro gen therapy Encounter for routine gynecological examination Chief Complaint E LAB ORDER SEE ORDER 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) NEEDED- Iron deficiency anemia Reason for Visit Current use of estro gen therapy Encounter for routine gynecological examination Chief Complaint NEEDED- Iron defi ciency anemia NEEDED- Iron deficiency anemia Chief Complaint LABS AND XRAY- pain RT SHOULDER TENDONITIS / PT HAS RX Chief Complaint LABS AND XRAY- pain 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) RT SHOULDER TENDONITIS / PT HAS RX POSTMENOPAUSAL Reason for Visit Current use of estro gen therapy Family history of colon cancer Postmenopausal Encounter for routine gynecological examination Chief Complaint LABS AND XRAY- pain 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) POSTMENOPAUSAL RT SHOULDER TENDONITIS / PT HAS RX Reason for Visit Current use of estro gen therapy Family history of colon cancer Postmenopausal Encounter for routine gynecological examination Chief Complaint Admit Date LEFT HAND October 08, 2024 3:04pm Left middle finger A1 lety release Nov 5:55am Left middle finger A1 lety release Nov 6:51am Reason for Visit Admit Date Trigger finger, left middle finger Febru jaguar 2024 3:04pm Trigger finger, left middle finger November 23, 2024 5:55am Chief Complaint Admit Date Left middle finger A1 lety release Nov 5:55am Left middle finger A1 lety release Nov 6:51am left hand November 26, 2024 7:5 8am left hand December 07, 2024 7:5 8am THYROID NODULE February 20, 2025 12:58 pm Reason for Visit Admit Date Trigger finger, left middle finger November 23, 2024 5:55am Trigger finger, left middle finger November 26, 2024 7:58am Trigger finger, left middle finger December 07, 2024 7:58am Chief Complaint Admit Date left hand November 26, 2024 7:5 8am left hand December 07, 2024 7:5 8am THYROID NODULE February 20, 2025 12:58 pm Reason for Visit Admit Date Trigger finger, left middle finger November 26, 2024 7:58am Trigger finger, left middle finger December 07, 2024 7:58am Chief Complaint Admit Date THYROID NODULE February 20, 2025 12:58 pm LABS April 23, 2025 12:23pm Family History No Family History Records Found Relationship Condition Age at Onset Recorded Date/T shun father Malignant neoplasm of colon Unknown Cardiac disease Unknown grandmother Malignant neoplasm of breast Unknown Advance Directives No Advanced Directives Records Found Advance Directive Response Recorded Date/ Time Living Will Yes May 17 10:02am Power of Broom Worker Yes May 17 10:02am Advance Directive Response Recorded Date/ Time Living Will Yes May 17 9:02am Power of Broom Worker Yes May 17 9:02am Advance Directive Response Recorded Date/ Time Living Will Yes November 14, 2024 2:39pm Do you have a Healthcare Power of Broom Worker? Yes November 14, 2024 2:39pm Name of Medical Power of Broom Worker on file November 14, 2024 2:39pm Summary Purpose Additional Source Comments Goals (unrecognized section and content) Goals may be documented in a n alternate sectionGoals may be documented in an alternate sectionGoals may be documented in an alternate sectionGoals may be documented in an alternate sectionGoals may be documented in an alternate sectionGoals may be documented in an alternate sectionGoals may be documented in an alternate sectionGoals may be documented in an alternate sectionGoals may be documented in an alternate sectionGoals may be documented in an alternate sectionGoals may be documented in an alternate section Care Teams (unrecognized sec tion and content) Team Status: Active Member Role Status Dates Dr. Muna Putnam MD Family Provider Active Dr. Muna Putnam MD Primary Care Provider Active Team Status: Inactive Member Role Status Dates Dr. Muna Putnam MD Primary Care Provider Active Dr. Donte Amaro MD Attending Provider, Referring Provider Active Team Status: Inactive Member Role Status Dates Dr. Muna Putnam MD Primary Care Prov ider, Attending Provider, Referring Provider Active Team Status: Active Member Role Status Dates Dr. Muna Putnam MD Primary Care Prov ider, Attending Provider, Referring Provider Active Team Status: Inactive Member Role Status Dates Dr. Muna Putnam MD Primary Care Provider, Referrin g Provider Active Sabra Silva HELICOPTER PILOT, HELICOPTER PILOT-C Attending Provider Active Team Status: Inactive Member Role Status Dates Dr. Muna Putnam MD Primary Care Provider Active Sabra Silva HELICOPTER PILOT, HELICOPTER PILOT-C Attending Provider, Referring Provider Active Team Status: Active Member Role Status Dates Dr. Muna Putnam MD Primary Care Provider Active Team Status: Inactive Member Role Status Dates Dr. Muna Putnam MD Primary Care Provider Active Start: October 08, 2024 End: October 08, 2024 Dr. Muna Putnam MD Referring Provider Active Start: October 08, 2024 End: October 08, 2024 Jm Rodríguez MD Attending Provider Active St art: October 08, 2024 End: October 08, 2024 Team Status: Inactive Member Role Status Dates Dr. Muna Putnam MD Primary Care Provider Active Start: November 23, 2024 End: November 23, 2024 Jm Rodríguez MD Attending Provider Active St art: November 23, 2024 End: November 23, 2024 Jm Rodríguez MD Referring Provider Active St art: November 23, 2024 End: November 23, 2024 Team Status: Active Member Role Status Dates Dr. Muna Putnam MD Primary Care Provider Active Start: November 23, 2024 Jm Rodríguez MD Attending Provider Active St art: November 23, 2024 Jm Rodríguez MD Referring Provider Active St art: November 23, 2024 Jm Rodríguez MD Other Provider Active Start: November 23, 2024 Team Status: Active Member Role/Relationship Status Dates Dr. Dominick Schaffer MD Primary Care Provider Active Team Status: Inactive Member Role/Relationship Status Dates Dr. Muna Putnam MD Primary Care Provider Active Start: November 23, 2024 End: November 23, 2024 Jm Rodríguez MD Attending Provider Active St art: November 23, 2024 End: November 23, 2024 Jm Rodríguez MD Referring Provider Active St art: November 23, 2024 End: November 23, 2024 Team Status: Active Member Role/Relationship Status Dates Dr. Muna Putnam MD Primary Care Provider Active Start: November 23, 2024 Jm Rodríguez MD Attending Provider Active St art: November 23, 2024 Jm Rodríguez MD Referring Provider Active St art: November 23, 2024 Jm Rodríguez MD Other Provider Active Start: November 23, 2024 Team Status: Inactive Member Role/Relationship Status Dates Dr. Muna Putnam MD Primary Care Provider Active Start: November 26, 2024 End: November 26, 2024 Dr. Muna Putnam MD Referring Provider Active Start: November 26, 2024 End: November 26, 2024 Jm Rodríguez MD Attending Provider Active St art: November 26, 2024 End: November 26, 2024 Team Status: Inactive Member Role/Relationship Status Dates Dr. Muna Putnam MD Primary Care Provider Active Start: December 07, 2024 End: December 07, 2024 Dr. Muna Putnam MD Referring Provider Active Start: December 07, 2024 End: December 07, 2024 Jm Rodríguez MD Attending Provider Active St art: December 07, 2024 End: December 07, 2024 Team Status: Inactive Member Role/Relationship Status Dates Dr. Dominick Schaffer MD Primary Care Provider Active Start: February 14, 2025 End: February 14, 2025 Dr. Dominick Schaffer MD Attending Provider Active Start: February 14, 2025 End: February 14, 2025 Dr. Dominick Schaffer MD Referring Provider Active Start: February 14, 2025 End: February 14, 2025 Team Status: Active Member Role/Relationship Status Dates Dr. Dominick Schaffer MD Primary Care Provider Active Start: February 20, 2025 Dr. Dominick Schaffer MD Attending Provider Active Start: February 20, 2025 Dr. Dominick Schaffer MD Referring Provider Active Start: February 20, 2025 Blacktop Paver Operator Relationship Specialty Start Date End Date Muna Putnam [address] [place], [place] [id number] PCP - General 03/09/04 Blacktop Paver Operator Relationship Specialty Start Date End Date Muna Putnam [address] [place], [place] [id number] PCP - General 03/09/04 Team Status: Inactive Member Role/Relationship Status Dates Dr. Dominick Schaffer MD Primary Care Provider Active Start: February 20, 2025 End: February 20, 2025 Dr. Dominick Schaffer MD Attending Provider Active Start: February 20, 2025 End: February 20, 2025 Dr. Dominick Schaffer MD Referring Provider Active Start: February 20, 2025 End: February 20, 2025 Blacktop Paver Operator Relationship Specialty Start Date End Date Muna Putnam [address] [place] [address] PCP - General 03/09/04 [employer] Paver Operator Relationship Specialty Start Date End Date Muna Putnam [address] [place] [address] PCP - General 03/09/04 Team Status: Inactive Member Role/Relationship Status Dates Dr. Muna Putnam MD Primary Care Provider Active Start: November 26, 2024 End: November 26, 2024 Dr. Muna Putnam MD Referring Provider Active Start: November 26, 2024 End: November 26, 2024 Jm Rodríguez MD Attending Provider Active St art: November 26, 2024 End: November 26, 2024 Team Status: Inactive Member Role/Relationship Status Dates Dr. Muna Putnam MD Primary Care Provider Active Start: December 07, 2024 End: December 07, 2024 Dr. Muna Putnam MD Referring Provider Active Start: December 07, 2024 End: December 07, 2024 Jm Rodríguez MD Attending Provider Active St art: December 07, 2024 End: December 07, 2024 Team Status: Inactive Member Role/Relationship Status Dates Dr. Dominick Schaffer MD Primary Care Provider Active Start: February 14, 2025 End: February 14, 2025 Dr. Dominick Schaffer MD Attending Provider Active Start: February 14, 2025 End: February 14, 2025 Dr. Dominick Schaffer MD Referring Provider Active Start: February 14, 2025 End: February 14, 2025 Team Status: Inactive Member Role/Relationship Status Dates Dr. Dominick Schaffer MD Primary Care Provider Active Start: February 20, 2025 End: February 20, 2025 Dr. Dominick Schaffer MD Attending Provider Active Start: February 20, 2025 End: February 20, 2025 Dr. Dominick Schaffer MD Referring Provider Active Start: February 20, 2025 End: February 20, 2025 Team Status: Inactive Member Role/Relationship Status Dates Dr. Dominick Schaffer MD Primary Care Provider Active Start: March 21, 2025 End: March 21, 2025 Dr. Dominick Schaffer MD Attending Provider Active Start: March 21, 2025 End: March 21, 2025 Dr. Dominick Schaffer MD Referring Provider Active Start: March 21, 2025 End: March 21, 2025 Team Status: Active Member Role/Relationship Status Dates Dr. Dominick Schaffer MD Primary care physician Active Team Status: Inactive Member Role/Relationship Status Dates Dr. Dominick Schaffer MD Primary care physician Active Start: February 14, 2025 End: February 14, 2025 Dr. Dominick Schaffer MD Attending physician Active Start: February 14, 2025 End: February 14, 2025 Dr. Dominick Schaffer MD Referring Provider Active Start: February 14, 2025 End: February 14, 2025 Team Status: Inactive Member Role/Relationship Status Dates Dr. Dominick Schaffer MD Primary care physician Active Start: February 20, 2025 End: February 20, 2025 Dr. Dominick Schaffer MD Attending physician Active Start: February 20, 2025 End: February 20, 2025 Dr. Dominick Schaffer MD Referring Provider Active Start: February 20, 2025 End: February 20, 2025 Team Status: Inactive Member Role/Relationship Status Dates Dr. Dominick Schaffer MD Primary care physician Active Start: March 21, 2025 End: March 21, 2025 Dr. Dominick Schaffer MD Attending physician Active Start: March 21, 2025 End: March 21, 2025 Dr. Dominick Schaffer MD Referring Provider Active Start: March 21, 2025 End: March 21, 2025 Team Status: Inactive Member Role/Relationship Status Dates Dr. Dominick Schaffer MD Primary care physician Active Start: April 23, 2025 End: April 23, 2025 Dr. Dominick Schaffer MD Attending physician Active Start: April 23, 2025 End: April 23, 2025 Source Comments (unrecognize d section and content) In the event this informatio n is protected by the Federal Confidentiality of Alcohol and Drug Abuse Patient Records regulations: The Federal rules restrict any use of the information to criminally investigate or prosecute any alcohol or drug abuse patient.[facility] the event this information is protected by the Federal Confidentiality of Alcohol and Drug Abuse Patient Records regulations: The Federal rules restrict any use of the information to criminally investigate or prosecute any alcohol or drug abuse patient.[facility] the event this information is protected by the Federal Confidentiality of Alcohol and Drug Abuse Patient Records regulations: The Federal rules restrict any use of the information to criminally investigate or prosecute any alcohol or drug abuse patient.[facility] the event this information is protected by the Federal Confidentiality of Alcohol and Drug Abuse Patient Records regulations: The Federal rules restrict any use of the information to criminally investigate or prosecute any alcohol or drug abuse patient.[facility] Reason for Visit (unrecogniz ed section and content) Reason Comments Consult Last colonoscopy 201 8, denies symptoms. Hgb is low INFORMATION SOURCE (unrecogn ized section and content) DATE CREATED AUTHOR 03/17/2025 [facility] DATE CREATED AUTHOR AUTHOR'S LORETA GOMEZ 05/03/[address] [facility] FOR RECORDS PERTAINING TO PATIENTS WHO ARE OR HAVE BEEN ENROLLED IN A CHEMICAL DEPENDENCY/SUBSTANCEABUSE PROGRAM, SOME INFORMATION MAY BE OMITTED. This clinical summary was aggregated from multiple sources. Caution should be exercised in using it in the provision of clinical care. This summary normalizes information from multiple sources, and as a consequence, information in this document may materially change the coding, format and clinical context of patient data. In addition, data may be omitted in some cases. CLINICAL DECISIONS SHOULD BE BASED ON THE PRIMARY CLINICAL RECORDS. [facility] [employer] [facility]. provides no warranty or guarantee of the accuracy or completeness of information in this document.
--- NOTE | 2025-07-23 07:45 | BI_ITS ---
EXAM: SCRN MAMM (CAD)W/NUBIA BILAT DATE: 07/23/2025 CLINICAL HISTORY: F, Age 65 y/o , SCREEN FOR BREAST CANCER Grandmother with breast cancer. History of prior left excisional breast biopsy. TECHNIQUE: Procedure Code: [id number] Modality: MG Procedure: SCRN MAMM (CAD)W/NUBIA BILAT COMPARISON: Prior exam(s) dated June 18, 2024.. FINDINGS: TISSUE DENSITY: The breasts are extremely dense, which lowers the sensitivity of mammography. Bilateral Breast Mammographic Findings: No significant masses, calcifications or other abnormalities are identified. No suspicious masses, areas of developing architectural distortion, or suspicious calcifications. There has been no significant interval change. BI/SCRN MAMM (CAD)W/NUBIA BILAT IMPRESSION: Stable bilateral screening mammogram. OVERALL FINAL ASSESSMENT BI-RADS 1: NEGATIVE. RECOMMENDATION: Routine annual follow-up in 1 Year Additional Recommendation none A letter with findings and recommendations will be mailed to the patient. Reading Location: [place] [address]
== END | disposition home or self-care (01) ==
PROVIDERS: PCP Family Medicine; Referring Provider Nurse Practitioner Women's Health; Visit Provider Nurse Practitioner Women's Health
DX: Z12.31 Encounter for screening mammogram for malignant neoplasm of breast (principal)
CPT/HCPCS: 77063; 77067